=== PATIENT | male | born 1940 | race Two or more races ===

== ENCOUNTER → 2016-05-07 | Outpatient (CLI) | payer MEDICARE, OTHER ==
[2016-05-07 16:34] LABS: Urine Bilirubin Negative (Negative); Urine Blood Negative /uL (Negative); Urine Color Yellow (Yellow); Urine Glucose Normal (Normal); Urine Ketone Negative (Negative); Urine Nitrite Negative (Negative); Urine RBC <1 /hpf (0 - 3); Urine Urobilinogen Normal (Negative)
[2016-05-07 16:53] LABS: BUN/Creatinine Ratio 15.2; Calcium 9.3 mg/dL (8.5-10.1); Potassium 4.7 mmol/L (3.5-5.1)
== END | disposition home or self-care (01) ==
LOC: LAB 08:21
PROVIDERS: ATTEND Internal Medicine Cardiovascular Disease
DX: N18.3 Chronic kidney disease, stage 3 (moderate) (principal); E83.2 Disorders of zinc metabolism; E21.3 Hyperparathyroidism, unspecified; R80.9 Proteinuria, unspecified
CPT/HCPCS: 36415; 80048; 81001; 82570; 83970; 84100; 84156

== ENCOUNTER → 2016-09-17 | Outpatient (CLI) | payer MEDICARE, OTHER ==
[2016-09-17 12:39] LABS: Albumin 4.2 g/dL (3.4-5.0); BUN/Creatinine Ratio 17.6; Bilirubin, Total 0.4 mg/dL (0.2-1.0); Calcium 9.8 mg/dL (8.5-10.1); Magnesium 2.8 mg/dL (1.6-2.6); Potassium 5.4 mmol/L (3.5-5.1); Total Protein 7.6 g/dL (6.4-8.2); Uric Acid 6.4 mg/dL (3.5-7.2)
== END | disposition home or self-care (01) ==
LOC: LAB 07:58
PROVIDERS: ATTEND Internal Medicine Cardiovascular Disease
DX: N18.3 Chronic kidney disease, stage 3 (moderate) (principal); M10.9 Gout, unspecified; R80.9 Proteinuria, unspecified; E29.1 Testicular hypofunction
CPT/HCPCS: 36415; 80053; 82570; 83735; 83970; 84100; 84156; 84550

== ENCOUNTER → 2017-01-12 | Outpatient (CLI) | payer MEDICARE, OTHER ==
[2017-01-12 12:39] LABS: Basophils # (auto) 0.1 uL; Eosinophils # (auto) 0.5 uL; Eosinophils % (auto) 8.4 % (0.0-7.0); Hematocrit 41.2 % (41.0-53.0); Hemoglobin 13.3 g/dL (13.5-17.5); Lymphocytes # (auto) 0.8 uL; Lymphocytes % (auto) 12.4 % (10.0-50.0); Mean Corpuscular Hemoglobin 29.7 pg (28.0-32.0); Mean Corpuscular Hgb Conc. 32.4 g/dL (32.0-36.0); Mean Corpuscular Volume 91.7 fL (80.0-100.0); Monocytes # (auto) 0.5 uL; Monocytes % (auto) 7.7 % (0.0-12.0); Neutrophils # (auto) 4.6 uL; Neutrophils % (auto) 70.5 % (37.0-80.0); Nucleated Red Blood Cells % 0.4 %; Platelet Count (auto) 243 10^3/uL (140-450); White Blood Cell 6.5 10^3/uL (4.4-10.8)
[2017-01-12 13:11] LABS: Albumin 4.4 g/dL (3.4-5.0); Bilirubin, Total 0.3 mg/dL (0.2-1.0); Calcium 9.3 mg/dL (8.5-10.1); Magnesium 2.3 mg/dL (1.6-2.6); Potassium 5.3 mmol/L (3.5-5.1); Total Protein 7.6 g/dL (6.4-8.2)
== END | disposition home or self-care (01) ==
LOC: LAB 08:24
PROVIDERS: ATTEND Internal Medicine Cardiovascular Disease
DX: E78.00 Pure hypercholesterolemia, unspecified (principal); I12.9 Hypertensive chronic kidney disease with stage 1 through stage 4 chronic kidney disease, or unspecified chronic kidney disease; E11.22 Type 2 diabetes mellitus with diabetic chronic kidney disease; N18.3 Chronic kidney disease, stage 3 (moderate); D64.9 Anemia, unspecified; E03.9 Hypothyroidism, unspecified; E55.9 Vitamin D deficiency, unspecified; K74.1 Hepatic sclerosis; R53.81 Other malaise; R97.20 Elevated prostate specific antigen [PSA]; M10.9 Gout, unspecified
CPT/HCPCS: 36415; 80053; 80061; 82306; 82728; 83036; 83540; 83550; 83735; 83970; 84153; 84403; 84443; 85025

== ENCOUNTER → 2017-04-27 | Outpatient (CLI) | payer MEDICARE, OTHER ==
[2017-04-27 11:48] LABS: Urine Blood Negative /uL (Negative); Urine Specific Gravity 1.013 (1.001-1.035)
[2017-04-27 11:55] LABS: Basophils # (auto) 0.1 uL; Basophils % (auto) 1.9 % (0.0-2.0); Eosinophils # (auto) 0.3 uL; Eosinophils % (auto) 5.4 % (0.0-7.0); Hematocrit 35.4 % (41.0-53.0); Hemoglobin 11.4 g/dL (13.5-17.5); Lymphocytes # (auto) 0.8 uL; Lymphocytes % (auto) 14.4 % (10.0-50.0); Mean Corpuscular Hemoglobin 29.5 pg (28.0-32.0); Mean Corpuscular Hgb Conc. 32.3 g/dL (32.0-36.0); Mean Corpuscular Volume 91.3 fL (80.0-100.0); Monocytes # (auto) 0.4 uL; Monocytes % (auto) 7.4 % (0.0-12.0); Neutrophils % (auto) 70.9 % (37.0-80.0); Nucleated Red Blood Cells % 0.2 %; Platelet Count (auto) 311 10^3/uL (140-450); Red Blood Cells 3.88 10^6/uL (4.5-5.90); Red Cell Distribution Width 14.2 % (11.8-14.3); White Blood Cell 5.7 10^3/uL (4.4-10.8)
[2017-04-27 12:00] LABS: Free T4 (Free Thyroxine) 1.08 ng/dL (0.89-1.76); Prostate Specific Antigen 1.87 ng/mL (0.0-4.0)
[2017-04-27 12:18] LABS: Alanine Aminotransferase 22 U/L (16-61); Albumin 4.4 g/dL (3.4-5.0); Alkaline Phosphatase 87 U/L (45-117); Anion Gap 9 (5-15); Aspartate Aminotransferase 15 U/L (15-37); BUN/Creatinine Ratio 15.1; Bilirubin, Direct < 0.1 mg/dL (0-0.2); Bilirubin, Total 0.4 mg/dL (0.2-1.0); Blood Urea Nitrogen 48 mg/dL (7-18); Calcium 9.3 mg/dL (8.5-10.1); Carbon Dioxide 21 mmol/L (21-32); Chloride 111 mmol/L (98-107); Cholesterol 195 mg/dL (< 200); GFR African American 24 mL/min; GFR Non-African American 20 mL/min; Glucose 88 mg/dL (74-106); HDL Cholesterol 48 mg/dL (40-59); LDL Cholesterol 129 mg/dL (< 100); Potassium 4.5 mmol/L (3.5-5.1); Sodium 141 mmol/L (136-145); Total Protein 7.7 g/dL (6.4-8.2); Triglycerides 123 mg/dL (< 150)
== END | disposition home or self-care (01) ==
LOC: LAB 08:26
PROVIDERS: ATTEND Internal Medicine Cardiovascular Disease
DX: E78.00 Pure hypercholesterolemia, unspecified (principal); D64.9 Anemia, unspecified; I10 Essential (primary) hypertension; E03.9 Hypothyroidism, unspecified; E55.9 Vitamin D deficiency, unspecified; E11.9 Type 2 diabetes mellitus without complications; D51.9 Vitamin B12 deficiency anemia, unspecified; R53.81 Other malaise; R97.20 Elevated prostate specific antigen [PSA]; K74.1 Hepatic sclerosis; N39.0 Urinary tract infection, site not specified
CPT/HCPCS: 36415; 80048; 80061; 80076; 81003; 82306; 82607; 83036; 84153; 84403; 84439; 84443; 85025

== ENCOUNTER → 2017-07-20 | Outpatient (CLI) | payer MEDICARE, OTHER ==
[2017-07-20 12:30] LABS: BUN/Creatinine Ratio 17.6; Calcium 8.8 mg/dL (8.5-10.1); Potassium 4.9 mmol/L (3.5-5.1)
== END | disposition home or self-care (01) ==
LOC: LAB 10:10
PROVIDERS: ATTEND Internal Medicine
DX: E11.22 Type 2 diabetes mellitus with diabetic chronic kidney disease (principal); I12.9 Hypertensive chronic kidney disease with stage 1 through stage 4 chronic kidney disease, or unspecified chronic kidney disease; N18.3 Chronic kidney disease, stage 3 (moderate); E03.9 Hypothyroidism, unspecified
CPT/HCPCS: 36415; 80048

== ENCOUNTER → 2017-09-07 | Outpatient (CLI) | payer MEDICARE, BC ==
[~2017-09-07] MED LIST: ALLO300T2 PO; ASPI81CH43 PO; CHOL20007 PO; DOXA2TAB PO; HYDR50TA15 PO; LEVO100T8 PO; TAMS0.4C36 PO
[2017-09-07 08:00] VITALS: BP 148/64
[2017-09-07 08:40] VITALS: BP 140/67
[2017-09-07 12:38] LABS: Basophils # (auto) 0 uL; Basophils % (auto) 0.6 % (0.0-2.0); Eosinophils # (auto) 0.1 uL; Eosinophils % (auto) 1.7 % (0.0-7.0); Hematocrit 38.2 % (41.0-53.0); Hemoglobin 12.4 g/dL (13.5-17.5); Lymphocytes # (auto) 0.4 uL; Lymphocytes % (auto) 7.5 % (10.0-50.0); Mean Corpuscular Hemoglobin 28.6 pg (28.0-32.0); Mean Corpuscular Hgb Conc. 32.4 g/dL (32.0-36.0); Mean Corpuscular Volume 88.1 fL (80.0-100.0); Monocytes # (auto) 0.3 uL; Monocytes % (auto) 6.4 % (0.0-12.0); Neutrophils # (auto) 4.4 uL; Neutrophils % (auto) 83.8 % (37.0-80.0); Nucleated Red Blood Cells % 0.1 %; Platelet Count (auto) 201 10^3/uL (140-450); Red Blood Cells 4.33 10^6/uL (4.5-5.90); Red Cell Distribution Width 16.2 % (11.8-14.3); White Blood Cell 5.3 10^3/uL (4.4-10.8)
[2017-09-07 12:40] LABS: INR 0.94 (0.9-1.15); Partial Thromboplastin Time 26.9 sec (23.78-33.04); Prothrombin Time 10.1 sec (9.27-12.13)
[2017-09-07 12:46] LABS: BUN/Creatinine Ratio 16.7; Calcium 8.5 mg/dL (8.5-10.1); Potassium 4.6 mmol/L (3.5-5.1)
== END | disposition home or self-care (01) ==
LOC: Rad HDHVI 07:55
PROVIDERS: ATTEND Internal Medicine Cardiovascular Disease
DX: Z01.818 Encounter for other preprocedural examination (principal); D64.9 Anemia, unspecified; I12.9 Hypertensive chronic kidney disease with stage 1 through stage 4 chronic kidney disease, or unspecified chronic kidney disease; E11.22 Type 2 diabetes mellitus with diabetic chronic kidney disease; N18.3 Chronic kidney disease, stage 3 (moderate); E03.9 Hypothyroidism, unspecified; R79.1 Abnormal coagulation profile
CPT/HCPCS: 36415; 80048; 85025; 85610; 85730; 93005; G0463

== ENCOUNTER 2017-09-09 09:24 | Day surgery (SDC) | payer MEDICARE, OTHER ==
[~2017-09-09] VITALS: Ht 175.3 cm; Wt 119.3 kg
[2017-09-09] MEDS ORDERED: IOHEXOL 350 MG/ML 100ML IJ ONE (11:55)
[2017-09-09] MEDS ORDERED: LIDOCAINE 2%HCL (LOCAL ANESTH.) INJ 10ml MDV ONE (11:55)
[2017-09-09] MEDS ORDERED: SODIUM CHL 0.9% 0 ML ONE (13:03)
[2017-09-09] MEDS ORDERED: fentaNYL CITRATE 100 MCG/2 ML VL ONE (13:03)
[2017-09-09] MEDS ORDERED: MIDAZOLAM HCL 1MG/1ML-2 ML VIAL ONE (13:03)
[2017-09-09] MEDS ORDERED: IODIXANOL 320MG/ML 100ML BTL IV ONE (13:05)
[2017-09-09] MEDS ORDERED: ANGIOMAX 250 MG VIAL IV ONE (13:23)
[2017-09-09] MEDS ORDERED: NITROGLYCERIN 0.4MG/DOSE SPRAY 4.9GM ONE (13:36)
== END 2017-09-09 15:55 | disposition home or self-care (01) ==
LOC: CATH 09:24
PROVIDERS: ATTEND Internal Medicine Cardiovascular Disease
DX: I12.9 Hypertensive chronic kidney disease with stage 1 through stage 4 chronic kidney disease, or unspecified chronic kidney disease (principal); N18.9 Chronic kidney disease, unspecified; E66.9 Obesity, unspecified; Z68.38 Body mass index [BMI] 38.0-38.9, adult; Z86.73 Personal history of transient ischemic attack (TIA), and cerebral infarction without residual deficits; Z87.891 Personal history of nicotine dependence; Z79.82 Long term (current) use of aspirin; Z79.899 Other long term (current) drug therapy
CPT/HCPCS: 36252; C1760; C1894; J1644; J2001; J2250; J3010; Q9967; 99152; 99153; A6257

== ENCOUNTER → 2017-11-03 | Outpatient (CLI) | payer MEDICARE, BC ==
[2017-11-03 12:25] LABS: Basophils # (auto) 0.1 uL; Eosinophils # (auto) 0.3 uL; Hematocrit 41.2 % (41.0-53.0); Hemoglobin 13.5 g/dL (13.5-17.5); Lymphocytes # (auto) 0.8 uL; Mean Corpuscular Hemoglobin 29.7 pg (28.0-32.0); Mean Corpuscular Hgb Conc. 32.8 g/dL (32.0-36.0); Mean Corpuscular Volume 90.5 fL (80.0-100.0); Monocytes # (auto) 0.6 uL; Neutrophils # (auto) 4.8 uL; Platelet Count (auto) 282 10^3/uL (140-450); Red Blood Cells 4.55 10^6/uL (4.5-5.90); Red Cell Distribution Width 15.4 % (11.8-14.3); White Blood Cell 6.6 10^3/uL (4.4-10.8)
[2017-11-03 12:39] LABS: Urine Blood Negative /uL (Negative); Urine Specific Gravity 1.013 (1.001-1.035)
[2017-11-03 12:44] LABS: Free T4 (Free Thyroxine) 1.07 ng/dL (0.89-1.76)
[2017-11-03 12:54] LABS: Albumin 4.5 g/dL (3.4-5.0); Bilirubin, Total 0.4 mg/dL (0.2-1.0); Calcium 9.5 mg/dL (8.5-10.1); Total Protein 8.3 g/dL (6.4-8.2)
== END | disposition home or self-care (01) ==
LOC: LAB 08:13
PROVIDERS: ATTEND Internal Medicine Cardiovascular Disease
DX: C61 Malignant neoplasm of prostate (principal); E11.9 Type 2 diabetes mellitus without complications; N39.0 Urinary tract infection, site not specified; I10 Essential (primary) hypertension; E03.9 Hypothyroidism, unspecified; E55.9 Vitamin D deficiency, unspecified; E29.1 Testicular hypofunction; D51.9 Vitamin B12 deficiency anemia, unspecified; K74.1 Hepatic sclerosis
CPT/HCPCS: 36415; 80053; 80061; 81003; 82306; 82607; 83036; 84403; 84439; 84443; 85025

== ENCOUNTER → 2018-02-14 | Outpatient (CLI) | payer MEDICARE, BC | END | disposition home or self-care (01) | LOC: Rad HDHVI 07:58 | PROVIDERS: ATTEND Internal Medicine Cardiovascular Disease | DX: I08.8 Other rheumatic multiple valve diseases (principal); I10 Essential (primary) hypertension | CPT/HCPCS: 93306 ==

== ENCOUNTER → 2018-02-17 | Outpatient (CLI) | payer MEDICARE, BC ==
[~2018-02-17] VITALS: Ht 177.8 cm; Wt 74.8 kg
== END | disposition home or self-care (01) ==
LOC: Rad HDHVI 08:17
PROVIDERS: ATTEND Internal Medicine Cardiovascular Disease
DX: I12.9 Hypertensive chronic kidney disease with stage 1 through stage 4 chronic kidney disease, or unspecified chronic kidney disease (principal); N18.3 Chronic kidney disease, stage 3 (moderate); N17.9 Acute kidney failure, unspecified
CPT/HCPCS: 78452; 93017; 96374; A9500

== ENCOUNTER → 2018-03-22 | Outpatient (CLI) | payer MEDICARE, BC ==
[~2018-03-22] MED LIST changes: +CLOP75TA28 PO; +LEVO150T10 PO; +NIFE90TA30 PO
[2018-03-22 10:05] VITALS: BP 180/78
--- NOTE | 2018-03-22 10:47 | NUR ---
PRE-OP FOR LEFT AND RIGHT HEART CATH FOR 03/24/18 Pre-Op Discharge Summary: See e-MAR for any medications given for this visit. Pre-op orders received and carried out per MD of EKG, LABS and chest xrays. Patient given a copy of EKG with instructions to go to [facility] out patient for further follow up care.
[2018-03-22 11:18] VITALS: BP 188/80
[2018-03-22 12:04] LABS: INR 0.92 (0.9-1.15); Partial Thromboplastin Time 19.5 sec (23.78-33.04); Prothrombin Time 9.9 sec (9.27-12.13)
[2018-03-22 12:06] LABS: BUN/Creatinine Ratio 14.7; Calcium 8.9 mg/dL (8.5-10.1); Potassium 4.5 mmol/L (3.5-5.1)
[2018-03-22 12:24] LABS: Basophils # (auto) 0.1 uL; Eosinophils # (auto) 0.5 uL; Eosinophils % (auto) 4.7 % (0.0-7.0); Hematocrit 34.7 % (41.0-53.0); Hemoglobin 11.3 g/dL (13.5-17.5); Lymphocytes # (auto) 1.1 uL; Lymphocytes % (auto) 11.1 % (10.0-50.0); Mean Corpuscular Hemoglobin 29.4 pg (28.0-32.0); Mean Corpuscular Hgb Conc. 32.6 g/dL (32.0-36.0); Mean Corpuscular Volume 90.2 fL (80.0-100.0); Monocytes # (auto) 0.7 uL; Monocytes % (auto) 7.2 % (0.0-12.0); Neutrophils # (auto) 7.5 uL; Nucleated Red Blood Cells % 0.2 %; Platelet Count (auto) 307 10^3/uL (140-450); Red Blood Cells 3.84 10^6/uL (4.5-5.90); Red Cell Distribution Width 15.2 % (11.8-14.3); White Blood Cell 9.9 10^3/uL (4.4-10.8)
== END | disposition home or self-care (01) ==
LOC: Rad HDHVI 09:45
PROVIDERS: ATTEND Internal Medicine Cardiovascular Disease
DX: Z01.818 Encounter for other preprocedural examination (principal); I10 Essential (primary) hypertension; D64.9 Anemia, unspecified; R79.1 Abnormal coagulation profile
CPT/HCPCS: 36415; 80048; 85025; 85610; 85730; 93005; G0463

== ENCOUNTER 2018-03-24 09:21 | Inpatient (IN) | payer MEDICARE, OTHER | END 2018-03-25 15:00 | disposition home or self-care (01) | LOC: CATH 09:21 → TELE-CENTR 14:55 | PROC: B2111ZZ Fluoroscopy of Multiple Coronary Arteries using Low Osmolar Contrast (ICD-10-PCS; principal; ~2018-03-24) | PROC: 027034Z Dilation of Coronary Artery, One Artery with Drug-eluting Intraluminal Device, Percutaneous Approach (ICD-10-PCS; ~2018-03-24) | PROC: B2161ZZ Fluoroscopy of Right and Left Heart using Low Osmolar Contrast (ICD-10-PCS; ~2018-03-24) | PROC: 4A023N6 Measurement of Cardiac Sampling and Pressure, Right Heart, Percutaneous Approach (ICD-10-PCS; ~2018-03-24) | PROC: B2101ZZ Fluoroscopy of Single Coronary Artery using Low Osmolar Contrast (ICD-10-PCS; ~2018-03-24) | PROC: B2161ZZ Fluoroscopy of Right and Left Heart using Low Osmolar Contrast (ICD-10-PCS; ~2018-03-24) | DX: R07.9 Chest pain, unspecified (principal); R94.39 Abnormal result of other cardiovascular function study; R06.02 Shortness of breath; I25.10 Atherosclerotic heart disease of native coronary artery without angina pectoris; I10 Essential (primary) hypertension; E78.5 Hyperlipidemia, unspecified ==

== ENCOUNTER → 2018-11-07 | Outpatient (CLI) | payer MEDICARE, BC ==
[~2018-11-07] VITALS: Ht 177.8 cm; Wt 73.5 kg
[~2018-11-07] MED LIST changes: -DOXA2TAB PO; -HYDR50TA15 PO; -LEVO100T8 PO
[2018-11-07 11:50] LABS: Urine Blood TRACE /uL (Negative); Urine Specific Gravity 1.012 (1.001-1.035)
[2018-11-07 11:55] LABS: Basophils # (auto) 0.1 uL; Basophils % (auto) 1.3 % (0.0-2.0); Eosinophils # (auto) 0.4 uL; Eosinophils % (auto) 6.2 % (0.0-7.0); Hematocrit 31.4 % (41.0-53.0); Hemoglobin 10.4 g/dL (13.5-17.5); Lymphocytes # (auto) 0.5 uL; Mean Corpuscular Hemoglobin 28.9 pg (28.0-32.0); Mean Corpuscular Hgb Conc. 33.2 g/dL (32.0-36.0); Mean Corpuscular Volume 86.9 fL (80.0-100.0); Monocytes # (auto) 0.5 uL; Monocytes % (auto) 9.7 % (0.0-12.0); Neutrophils # (auto) 4.2 uL; Neutrophils % (auto) 74.8 % (37.0-80.0); Nucleated Red Blood Cells % 0.1 %; Platelet Count (auto) 276 10^3/uL (140-450); Red Blood Cells 3.61 10^6/uL (4.5-5.90); White Blood Cell 5.7 10^3/uL (4.4-10.8)
[2018-11-07 12:03] LABS: Albumin 4.2 g/dL (3.4-5.0); BUN/Creatinine Ratio 13.1; Calcium 8.7 mg/dL (8.5-10.1); Potassium 4.8 mmol/L (3.5-5.1)
[2018-11-07 12:06] LABS: Bilirubin, Total 0.3 mg/dL (0.2-1.0); Total Protein 7.1 g/dL (6.4-8.2)
[2018-11-07 12:14] LABS: Free T4 (Free Thyroxine) 1.48 ng/dL (0.89-1.76); Prostate Specific Antigen 1.26 ng/mL (0.0-4.0)
== END | disposition home or self-care (01) ==
LOC: Rad HDHVI 07:53
PROVIDERS: ATTEND Internal Medicine Cardiovascular Disease
DX: E03.9 Hypothyroidism, unspecified (principal); K90.9 Intestinal malabsorption, unspecified; C61 Malignant neoplasm of prostate; E29.1 Testicular hypofunction; N39.0 Urinary tract infection, site not specified; I12.9 Hypertensive chronic kidney disease with stage 1 through stage 4 chronic kidney disease, or unspecified chronic kidney disease; N18.3 Chronic kidney disease, stage 3 (moderate); Z79.899 Other long term (current) drug therapy
CPT/HCPCS: 36415; 78452; 80053; 80061; 81003; 82306; 82607; 83036; 84153; 84403; 84439; 84443; 85025; 93017; 96374; A9500

== ENCOUNTER → 2018-12-23 | Outpatient (CLI) | payer MEDICARE, BC ==
[2018-12-23 12:26] LABS: Calcium 8.5 mg/dL (8.5-10.1); Potassium 4.9 mmol/L (3.5-5.1)
== END | disposition home or self-care (01) ==
LOC: LAB 10:05
PROVIDERS: ATTEND Internal Medicine Cardiovascular Disease
DX: I12.9 Hypertensive chronic kidney disease with stage 1 through stage 4 chronic kidney disease, or unspecified chronic kidney disease (principal); N18.6 End stage renal disease; I25.10 Atherosclerotic heart disease of native coronary artery without angina pectoris; E78.5 Hyperlipidemia, unspecified
CPT/HCPCS: 36415; 80048

== ENCOUNTER 2018-12-26 14:13 | Inpatient (IN) | payer MEDICARE, BC ==
[~2018-12-26] VITALS: Ht 175.3 cm; Wt 68.9 kg
--- NOTE | 2018-12-26 15:15 | NUR ---
Telemetry admit from DR. RODRIGUEZ OFFICE SHELL WASHINGTON admitted to Telemetry unit after SBAR received. Patient oriented to Herminia Nath, primary RN, unit, room, bed, and unit policies regarding patient care and visiting hours. Patient now on continuous telemetry monitoring, tele box # [id number] and telemetry reading on arrival to unit is . Patient placed on bedside oxygen, weighed by bedscale and encouraged to call if they need something. All questions and concerns addressed, patient verbalized understanding. Note:
[2018-12-26 15:58] VITALS: BP 153/70
[2018-12-26 17:00] VITALS: BP 153/70
--- NOTE | 2018-12-26 17:11 | NUR ---
DOCTOR LUIS EDUARDO CALLED AND ASKED TO HOLD RADIOLOGIST CONSULT UNTIL HE COMES TO SEE THE PATIENT IN THE AM
[2018-12-26] MEDS: CALCIUM ACETATE 667 MG CAP PO SCH (17:51)
[2018-12-26 18:08] LABS: Basophils # (auto) 0.1 uL; Basophils % (auto) 0.9 % (0.0-2.0); Eosinophils # (auto) 0.3 uL; Eosinophils % (auto) 5.5 % (0.0-7.0); Hematocrit 31.7 % (41.0-53.0); Hemoglobin 10.4 g/dL (13.5-17.5); Lymphocytes # (auto) 0.6 uL; Lymphocytes % (auto) 9.2 % (10.0-50.0); Mean Corpuscular Hemoglobin 28.9 pg (28.0-32.0); Mean Corpuscular Hgb Conc. 32.8 g/dL (32.0-36.0); Monocytes # (auto) 0.6 uL; Monocytes % (auto) 9.6 % (0.0-12.0); Neutrophils # (auto) 4.5 uL; Neutrophils % (auto) 74.8 % (37.0-80.0); Platelet Count (auto) 266 10^3/uL (140-450); Red Cell Distribution Width 14.2 % (11.8-14.3)
[2018-12-26 18:15] LABS: INR 0.96 (0.9-1.15); Partial Thromboplastin Time 26.7 sec (23.64-32.05)
[2018-12-26 18:17] LABS: Albumin 3.9 g/dL (3.4-5.0); Calcium 8.3 mg/dL (8.5-10.1); Potassium 5.3 mmol/L (3.5-5.1)
[2018-12-26 18:20] LABS: BUN/Creatinine Ratio 12.6; Bilirubin, Total 0.3 mg/dL (0.2-1.0); Total Protein 6.9 g/dL (6.4-8.2)
--- NOTE | 2018-12-26 19:15 | NUR ---
Opening Shift Note Assumed care of patient, awake and alert. No S/S of distress/SOB or pain. Instructed on POC and to call for assist PRN, will continue to monitor for changes Q1hr and PRN.
[2018-12-26] MEDS: TEMAZEPAM 15 MG CAP PO PRN (21:32)
[2018-12-26] MEDS: SODIUM BICARBONATE 650 MG TAB PO SCH (21:32)
[2018-12-26] MEDS: cloNIDine HCL 0.1 MG TAB PO SCH (21:33)
[2018-12-26] MEDS ORDERED: SODIUM CITR/CITRIC ACID ORAL SOLN 30 ML PO SCH (22:00)
[2018-12-26 23:24] VITALS: BP 168/70
[2018-12-27 05:23] VITALS: BP 101/63
[2018-12-27] MEDS: SODIUM BICARBONATE 650 MG TAB PO SCH ×3 (06:01→21:56)
[2018-12-27] MEDS: LEVOTHYROXINE SODIUM 50 MCG TAB PO SCH (06:02)
[2018-12-27] MEDS: cloNIDine HCL 0.1 MG TAB PO SCH ×3 (06:02→21:56)
[2018-12-27 07:28] LABS: Basophils # (auto) 0 uL; Basophils % (auto) 0.9 % (0.0-2.0); Eosinophils # (auto) 0.3 uL; Eosinophils % (auto) 6.3 % (0.0-7.0); Hematocrit 26.5 % (41.0-53.0); Lymphocytes # (auto) 0.5 uL; Lymphocytes % (auto) 11.1 % (10.0-50.0); Mean Corpuscular Hemoglobin 29.5 pg (28.0-32.0); Monocytes # (auto) 0.5 uL; Monocytes % (auto) 10.9 % (0.0-12.0); Neutrophils # (auto) 3.1 uL; Neutrophils % (auto) 70.8 % (37.0-80.0); Platelet Count (auto) 201 10^3/uL (140-450); Red Blood Cells 3.05 10^6/uL (4.5-5.90); Red Cell Distribution Width 14.1 % (11.8-14.3); White Blood Cell 4.4 10^3/uL (4.4-10.8)
[2018-12-27 07:42] LABS: Calcium 8.1 mg/dL (8.5-10.1); Magnesium 2.7 mg/dL (1.6-2.6); Potassium 5.2 mmol/L (3.5-5.1)
[2018-12-27 07:44] LABS: BUN/Creatinine Ratio 13.2; Phosphorus 5.6 mg/dL (2.5-4.90)
--- NOTE | 2018-12-27 07:45 | NUR ---
CRITICAL VALUE LAB CALLED RE: BUN LEVEL 80. AWARE. WILL CONTINUE TO MONITOR
[2018-12-27 07:47] LABS: % Iron Saturation 26.8 % (20-55)
[2018-12-27 08:00] VITALS: BP 119/62
[2018-12-27] MEDS: CALCIUM ACETATE 667 MG CAP PO SCH ×3 (08:05→18:04)
--- NOTE | 2018-12-27 08:15 | NUR ---
Opening Shift Note Assumed care of patient, awake and alert. No S/S of distress/SOB or pain. Instructed on POC and to call for assist PRN, bed in locked and lowest position and call light within reach. Will continue to monitor for changes Q1hr and PRN.
--- NOTE | 2018-12-27 09:20 | NUR ---
MD ROUNDS DR HOFF AT BEDSIDE DISCUSSING POC WITH PATIENT AND FAMILY. ALL QUESTIONS/CONCERNS ANSWERED. WILL CONTINUE TO MONITOR
[2018-12-27] MEDS: B-COMPLEX W/ C & FOLIC ACID(NEPHROVITE TAB) PO SCH (10:12)
[2018-12-27] MEDS: NIFEdipine ER 30 MG TAB PO SCH (10:13)
[2018-12-27 12:00] VITALS: BP 131/64
[2018-12-27] MEDS: IRON SUCROSE COMPLEX 200 MG in SODIUM CHL 0.9% 100 ML IV SCH (15:36)
[2018-12-27 17:00] VITALS: BP 121/60
[2018-12-27 22:00] VITALS: BP 115/65
[2018-12-28 04:56] VITALS: BP 122/62
[2018-12-28] MEDS: cloNIDine HCL 0.1 MG TAB PO SCH ×3 (06:00→21:59)
[2018-12-28] MEDS: SODIUM BICARBONATE 650 MG TAB PO SCH ×3 (06:20→21:58)
[2018-12-28] MEDS: LEVOTHYROXINE SODIUM 50 MCG TAB PO SCH (07:27)
[2018-12-28 07:34] LABS: Basophils # (auto) 0 uL; Basophils % (auto) 0.8 % (0.0-2.0); Eosinophils # (auto) 0.3 uL; Eosinophils % (auto) 5.3 % (0.0-7.0); Hematocrit 29.4 % (41.0-53.0); Hemoglobin 9.9 g/dL (13.5-17.5); Lymphocytes # (auto) 0.5 uL; Lymphocytes % (auto) 8.7 % (10.0-50.0); Mean Corpuscular Hemoglobin 29.3 pg (28.0-32.0); Mean Corpuscular Hgb Conc. 33.8 g/dL (32.0-36.0); Mean Corpuscular Volume 86.7 fL (80.0-100.0); Monocytes # (auto) 0.5 uL; Monocytes % (auto) 9.7 % (0.0-12.0); Neutrophils # (auto) 4.1 uL; Neutrophils % (auto) 75.5 % (37.0-80.0); Nucleated Red Blood Cells % 0.1 %; Platelet Count (auto) 225 10^3/uL (140-450); Red Blood Cells 3.39 10^6/uL (4.5-5.90); Red Cell Distribution Width 13.8 % (11.8-14.3); White Blood Cell 5.4 10^3/uL (4.4-10.8)
[2018-12-28 07:44] LABS: BUN/Creatinine Ratio 13.2; Potassium 5.3 mmol/L (3.5-5.1)
--- NOTE | 2018-12-28 07:51 | NUR ---
CRITICAL BUN BUN INCREASED FROM 80 TO 83, DR. RODRIGUEZ NOTIFIED, WAITING FOR CALL BACK.
[2018-12-28] MEDS ORDERED: SODIUM CHL 0.9% 1000 ML BAG XX ONE (08:00)
[2018-12-28] MEDS: CALCIUM ACETATE 667 MG CAP PO SCH ×3 (08:00→18:26)
--- NOTE | 2018-12-28 08:46 | NUR ---
DR. HOFF AT [facility], MADE AWARE PT IS SCHEDULED FOR DIALYSIS CATHETER PLACEMENT ON WEDNESDAY. RECEIVED ORDER TO GIVE INSULIN 10 UNITS IV,D50 1 AMP AND ALBUTEROL NEB 1GRAM. Addendum: 12/28/18 at 09 by Loli Max RN ALBUTEROL NEB 10MG
[2018-12-28 09:00] VITALS: BP 134/69
[2018-12-28] MEDS ORDERED: DEXTROSE (50%) 50ML SYRG IV ONE (09:00)
[2018-12-28] MEDS ORDERED: ALBUTEROL SULF 2.5 MG/0.5ML(0.5%) NEB SOLN NEB ONE (09:00)
[2018-12-28] MEDS ORDERED: InsuLIN REG 1unit/0.01ml Soln (100units/ml) IV ONE (09:00)
[2018-12-28] MEDS: NIFEdipine ER 30 MG TAB PO SCH (10:00)
[2018-12-28] MEDS: B-COMPLEX W/ C & FOLIC ACID(NEPHROVITE TAB) PO SCH (10:24)
[2018-12-28] MEDS: IRON SUCROSE COMPLEX 200 MG in SODIUM CHL 0.9% 100 ML IV SCH (12:05)
--- NOTE | 2018-12-28 12:42 | NUR ---
Dr. Steven ordered to resume diet, Dr. Dwyer made aware pt is not going for dialysis catheter placement until Wednesday, he ordered renal diet.
[2018-12-28 12:56] VITALS: BP 134/60
[2018-12-28] MEDS ORDERED: ERGOCALCIFEROL 50,000 UNIT(1.25MG) CAP PO SCH (14:00)
--- NOTE | 2018-12-28 15:00 | NUR ---
PT INSTRUCTED TO USE URINAL TO MEASURE OUTPUT. MADE AWARE INTAKE AND OUTPUT IS MONITORED.
--- NOTE | 2018-12-28 15:50 | NUR ---
CALLED PHARMACY TO FOLLOW UP VITAMIN D DOSE.
[2018-12-28 20:18] VITALS: BP 151/77
[2018-12-28] MEDS ORDERED: EPOETIN ALFA 10,000 UNIT/1 ML VIAL SC ONE (21:00)
[2018-12-28 22:08] VITALS: BP 157/73
[2018-12-29 04:04] VITALS: BP 130/70
[2018-12-29 05:50] LABS: Basophils # (auto) 0.1 uL; Eosinophils # (auto) 0.2 uL; Eosinophils % (auto) 3.4 % (0.0-7.0); Hematocrit 27.9 % (41.0-53.0); Hemoglobin 9.4 g/dL (13.5-17.5); Lymphocytes # (auto) 0.5 uL; Lymphocytes % (auto) 9.6 % (10.0-50.0); Mean Corpuscular Hemoglobin 29.5 pg (28.0-32.0); Mean Corpuscular Hgb Conc. 33.8 g/dL (32.0-36.0); Mean Corpuscular Volume 87.2 fL (80.0-100.0); Monocytes # (auto) 0.6 uL; Monocytes % (auto) 10.6 % (0.0-12.0); Neutrophils % (auto) 75.4 % (37.0-80.0); Platelet Count (auto) 212 10^3/uL (140-450); Red Cell Distribution Width 14.1 % (11.8-14.3); White Blood Cell 5.3 10^3/uL (4.4-10.8)
[2018-12-29 06:08] LABS: Potassium 5.2 mmol/L (3.5-5.1)
[2018-12-29 06:12] LABS: BUN/Creatinine Ratio 13.9
--- NOTE | 2018-12-29 06:28 | NUR ---
CRITICAL LAB VALUE LAB CALLED RE: BUN OF 89.
[2018-12-29] MEDS: cloNIDine HCL 0.1 MG TAB PO SCH ×3 (06:31→21:43)
[2018-12-29] MEDS: SODIUM BICARBONATE 650 MG TAB PO SCH ×3 (06:31→21:42)
[2018-12-29] MEDS: LEVOTHYROXINE SODIUM 50 MCG TAB PO SCH (06:31)
--- NOTE | 2018-12-29 07:30 | NUR ---
Opening Shift Note RECEIVED REPORT FROM NOC RN. Assumed care of patient, awake and alert. No S/S of distress/SOB or pain. BED IN LOWEST, LOCKED POSITION WITH SIDERAILS UP x2 AND CALL LIGHT WITHIN REACH. Instructed on POC and to call for assist PRN, will continue to monitor for changes Q1hr and PRN.
[2018-12-29] MEDS: CALCIUM ACETATE 667 MG CAP PO SCH ×3 (08:24→17:23)
[2018-12-29 08:30] VITALS: BP 127/67
[2018-12-29] MEDS: NIFEdipine ER 30 MG TAB PO SCH (10:14)
[2018-12-29] MEDS: B-COMPLEX W/ C & FOLIC ACID(NEPHROVITE TAB) PO SCH (10:14)
[2018-12-29 11:59] LABS: Hepatitis A Ab IgM Negative
[2018-12-29 12:00] VITALS: BP 115/64
[2018-12-29 12:27] LABS: Hepatitis B Core IgM Negative
[2018-12-29 12:42] LABS: Hepatitis B Surface Antigen Negative (Negative)
[2018-12-29] MEDS: IRON SUCROSE COMPLEX 200 MG in SODIUM CHL 0.9% 100 ML IV SCH (12:46)
[2018-12-29] MEDS: SODIUM ZIRCONIUM CYCL 10 GM PAK PO SCH (12:47)
[2018-12-29 13:00] LABS: Hepatitis C Antibody Negative (Negative)
--- NOTE | 2018-12-29 14:15 | NUR ---
IV removal IV DC'd with clean sterile technique, catheter fully intact. Pressure dressing applied to site. Patient tolerated well.
--- NOTE | 2018-12-29 14:15 | NUR ---
IV insertion IV access obtained, via clean sterile technique by inserting 20 gauge catheter at RIGHT AC after 1 attempt. IV secured properly. No trauma to site. Patient tolerated well.
--- NOTE | 2018-12-29 14:20 | NUR ---
PATIENT TAKEN TO ENGINE ASSEMBLY SUPERVISOR FOR PROCEDURE.
[2018-12-29] MEDS ORDERED: fentaNYL CITRATE 100 MCG/2 ML VL ONE (15:12)
[2018-12-29] MEDS ORDERED: MIDAZOLAM HCL 1MG/1ML-2 ML VIAL ONE (15:12)
[2018-12-29] MEDS ORDERED: LIDOCAINE 2%HCL (LOCAL ANESTH.) INJ 20ML MDV ONE (15:21)
[2018-12-29] MEDS ORDERED: HEPARIN SODIUM (PORCINE) 5000 UNITS/ML 1ML VIAL ONE (16:05)
--- NOTE | 2018-12-29 16:50 | NUR ---
PATIENT BACK IN ROOM AFTER PROCEDURE.
[2018-12-29 16:53] VITALS: BP 140/75
--- NOTE | 2018-12-29 19:30 | NUR ---
Opening Shift Note Assumed care of patient, awake and alert. No S/S of distress/SOB or pain. Instructed on POC and to call for assist if needed. Call light placed in reach of patient and explained. Patient is currently laying in bed with the rails up x2, bed is locked in the lowest position. Will continue to monitor.
[2018-12-29] MEDS: TEMAZEPAM 15 MG CAP PO PRN (21:48)
[2018-12-29 22:00] VITALS: BP 119/66
[2018-12-30 05:00] VITALS: BP 136/66
[2018-12-30] MEDS: SODIUM BICARBONATE 650 MG TAB PO SCH ×2 (05:31→14:29)
[2018-12-30] MEDS: cloNIDine HCL 0.1 MG TAB PO SCH ×2 (05:32→14:00)
[2018-12-30] MEDS: LEVOTHYROXINE SODIUM 50 MCG TAB PO SCH (05:33)
[2018-12-30 06:26] LABS: Basophils # (auto) 0 uL; Basophils % (auto) 0.9 % (0.0-2.0); Eosinophils # (auto) 0.2 uL; Eosinophils % (auto) 4.3 % (0.0-7.0); Hematocrit 28.8 % (41.0-53.0); Hemoglobin 9.8 g/dL (13.5-17.5); Lymphocytes # (auto) 0.5 uL; Lymphocytes % (auto) 9.9 % (10.0-50.0); Mean Corpuscular Hemoglobin 29.5 pg (28.0-32.0); Mean Corpuscular Hgb Conc. 34.1 g/dL (32.0-36.0); Mean Corpuscular Volume 86.5 fL (80.0-100.0); Monocytes # (auto) 0.6 uL; Monocytes % (auto) 10.3 % (0.0-12.0); Neutrophils % (auto) 74.6 % (37.0-80.0); Nucleated Red Blood Cells % 0.1 %; Platelet Count (auto) 211 10^3/uL (140-450); Red Blood Cells 3.33 10^6/uL (4.5-5.90); White Blood Cell 5.4 10^3/uL (4.4-10.8)
[2018-12-30 06:46] LABS: Potassium 5.1 mmol/L (3.5-5.1)
[2018-12-30 06:51] LABS: BUN/Creatinine Ratio 14.5; Calcium 8.2 mg/dL (8.5-10.1)
[2018-12-30] MEDS: CALCIUM ACETATE 667 MG CAP PO SCH ×3 (08:16→17:55)
[2018-12-30 09:00] VITALS: BP 123/59
[2018-12-30] MEDS ORDERED: SODIUM CHL 0.9% 1000 ML BAG XX ONE (09:15)
[2018-12-30] MEDS: B-COMPLEX W/ C & FOLIC ACID(NEPHROVITE TAB) PO SCH (10:00)
[2018-12-30] MEDS: SODIUM ZIRCONIUM CYCL 10 GM PAK PO SCH (10:00)
[2018-12-30] MEDS: NIFEdipine ER 30 MG TAB PO SCH (10:01)
--- NOTE | 2018-12-30 11:30 | NUR ---
Nutrition Assessment Notes please see attached link for complete assessment Est. Needs based on BW (68 kg): 8988-0152 kcal (30-333 kcal/kgBW), 81-95 gms pro (1.2-1.4 gms/kgBW r/t HD). Will continue to monitor pertinent labs and reassess nutrient need prn Addendum: 12/30/18 at [address] Amended: Links added.
[2018-12-30] MEDS: IRON SUCROSE COMPLEX 200 MG in SODIUM CHL 0.9% 100 ML IV SCH (12:26)
[2018-12-30 13:00] VITALS: BP 140/59
--- NOTE | 2018-12-30 16:20 | NUR ---
assessment Patient is a 78 year old male who is alert and oriented. Patients cognitive abilities are intact. Prior to admission patient lived home with family and functioned independently. Patient informed me he is able to care for his own ADLs. Per patient he will return home to his prior living arrangements post discharge and family will transport him home. Patient is a new dialysis patient. Patient will need home health for med management and safety on discharge. I informed patient he has a right to speak to a social worker school regarding all care. I informed patient he has a right to participate in any and all discharge planning. Patient has a POA and advanced directive. Patient verbalized understanding and agreed to discharge plan. Addendum: 12/30/18 at 1628 by Dorene HENSON Amended: Links added.
[2018-12-30 17:00] VITALS: BP 138/72
--- NOTE | 2018-12-30 17:19 | NUR ---
D/C Planning Per consult for chair time and home health. Patient Johnie was at bedside when Information and choice letter was given to patient. Pt and did not have a preference of provider. Informed Pt and Dr. Steven requested [facility] as home health on the order and order will be sent to agency since they had no choice of preference. Pt and verbalize understanding d/c plan. Contact [facility] Ph:) Fax:( [phone]) faxed medical records. Per Katie from [facility] order has been received and service to start within 48hrs upon d/c day. Information was given to patient and at bedside. Informed NORRIS Nina. Addendum: 12/30/18 at 1725 by LISA SANDOVAL Amended: Links added. Addendum: 01/02/19 at 0823 by LISA HENSON Contact [facility] Ph:) Fax:) faxed medical records. Per Argenis lane [facility] dialysis chair time will be Wednesday01/02/19 at 14:[address] Per Argenis due to the holiday patient chair time will be different for the first week and the day of dialysis they will give give the schedule. Information was given to Patient and at bedside.
--- NOTE | 2018-12-30 17:50 | NUR ---
DIALYSIS COMPLETE DIALYSIS NURSE REPORTS 2 L TAKEN OFF.
[2018-12-30 18:01] VITALS: BP 138/72
--- NOTE | 2018-12-30 19:34 | NUR ---
CALLED CLERICAL AND ADMINISTRATIVE WORKERS OFFICE TO ADVISE OF RETURN OF TELE BOX #56. TOLD CLERICAL AND ADMINISTRATIVE WORKERS THERE WAS NO MORE BUBBLE WRAP. CLERICAL AND ADMINISTRATIVE WORKERS ADVISED TO KEEP TELE BOX AT NURSES STATION AND HAVE SOMEONE BRING IT DOWN.
[2018-12-30] MEDS ORDERED: EPOETIN ALFA 10,000 UNIT/1 ML VIAL SC ONE (21:00)
== END 2018-12-30 19:08 | disposition home or self-care (01) | DRG 673 ==
LOC: TELE-WESTW 15:00
PROVIDERS: ADMIT Internal Medicine Cardiovascular Disease; ATTEND Internal Medicine Cardiovascular Disease
PROC: 0JH63XZ Insertion of Tunneled Vascular Access Device into Chest Subcutaneous Tissue and Fascia, Percutaneous Approach (ICD-10-PCS; principal; 2018-12-29)
PROC: 02HV33Z Insertion of Infusion Device into Superior Vena Cava, Percutaneous Approach (ICD-10-PCS; 2018-12-29)
PROC: B5181ZA Fluoroscopy of Superior Vena Cava using Low Osmolar Contrast, Guidance (ICD-10-PCS; 2018-12-29)
PROC: B548ZZA Ultrasonography of Superior Vena Cava, Guidance (ICD-10-PCS; 2018-12-29)
PROC: 5A1D70Z Performance of Urinary Filtration, Intermittent, Less than 6 Hours Per Day (ICD-10-PCS; 2018-12-30)
DX: I12.0 Hypertensive chronic kidney disease with stage 5 chronic kidney disease or end stage renal disease (principal); N18.6 End stage renal disease; E87.2 Acidosis; D63.1 Anemia in chronic kidney disease; E87.5 Hyperkalemia; E83.39 Other disorders of phosphorus metabolism; I25.10 Atherosclerotic heart disease of native coronary artery without angina pectoris; E03.9 Hypothyroidism, unspecified; N40.0 Benign prostatic hyperplasia without lower urinary tract symptoms; E78.5 Hyperlipidemia, unspecified; Z99.2 Dependence on renal dialysis; Z86.73 Personal history of transient ischemic attack (TIA), and cerebral infarction without residual deficits; Z79.82 Long term (current) use of aspirin; Z95.5 Presence of coronary angioplasty implant and graft; Z79.899 Other long term (current) drug therapy
CPT/HCPCS: 36415; 71045; 76000; 76775; 76942; 80048; 80053; 80074; 82728; 82962; 83540; 83550; 83735; 84100; 85025; 85610; 85730; 90935; 93005; 94640; G0378; J0885; J1642; J1756; J1815; J2250

== ENCOUNTER → 2019-10-11 | Outpatient (CLI) | payer MEDICARE, BC ==
[~2019-10-11] MED LIST changes: -ALLO300T2 PO; -NIFE90TA30 PO; +NIFE90TA49 PO
[2019-10-11 12:22] LABS: Basophils # (auto) 0.1 10 ^3/uL (0-0.2); Basophils % (auto) 1.2 % (0.0-2.0); Eosinophils # (auto) 0.3 10 ^3/uL (0-0.8); Eosinophils % (auto) 5.7 % (0.0-7.0); Hematocrit 35.7 % (41.0-53.0); Hemoglobin 12.2 g/dL (13.5-17.5); Lymphocytes # (auto) 0.6 10 ^3/uL (0.4-5.4); Lymphocytes % (auto) 9.5 % (10.0-50.0); Mean Corpuscular Hemoglobin 31.3 pg (28.0-32.0); Mean Corpuscular Hgb Conc. 34.1 g/dL (32.0-36.0); Mean Corpuscular Volume 91.7 fL (80.0-100.0); Monocytes # (auto) 0.6 10 ^3/uL (0-1.3); Monocytes % (auto) 9.1 % (0.0-12.0); Neutrophils # (auto) 4.5 10 ^3/uL (1.6-8.6); Neutrophils % (auto) 74.5 % (37.0-80.0); Nucleated Red Blood Cells % 0.1 %; Platelet Count (auto) 281 10^3/uL (140-450); Red Blood Cells 3.89 10^6/uL (4.5-5.90); Red Cell Distribution Width 14.4 % (11.8-14.3); White Blood Cell 6.1 10^3/uL (4.4-10.8)
[2019-10-11 12:24] LABS: Urine Blood Negative /uL (Negative); Urine Specific Gravity 1.015 (1.001-1.035)
[2019-10-11 12:42] LABS: Albumin 4.2 g/dL (3.4-5.0); BUN/Creatinine Ratio 7.5; Bilirubin, Total 0.4 mg/dL (0.2-1.0); Calcium 7.8 mg/dL (8.5-10.1); Total Protein 7.4 g/dL (6.4-8.2)
[2019-10-11 12:45] LABS: Free T4 (Free Thyroxine) 1.28 ng/dL (0.89-1.76); Prostate Specific Antigen 1.54 ng/mL (0.0-4.0)
== END | disposition home or self-care (01) ==
LOC: CHF HDHVI 08:19
PROVIDERS: ATTEND Internal Medicine Cardiovascular Disease
DX: C61 Malignant neoplasm of prostate (principal); E11.9 Type 2 diabetes mellitus without complications; I10 Essential (primary) hypertension; K90.9 Intestinal malabsorption, unspecified; E03.9 Hypothyroidism, unspecified; N39.0 Urinary tract infection, site not specified; D51.9 Vitamin B12 deficiency anemia, unspecified; D64.9 Anemia, unspecified; E78.5 Hyperlipidemia, unspecified; E55.9 Vitamin D deficiency, unspecified; R53.81 Other malaise; R97.20 Elevated prostate specific antigen [PSA]; Z00.00 Encounter for general adult medical examination without abnormal findings; Z79.899 Other long term (current) drug therapy
CPT/HCPCS: 36415; 80053; 80061; 81003; 82306; 82607; 83036; 84153; 84403; 84439; 84443; 85025

== ENCOUNTER → 2019-10-19 | Outpatient (CLI) | payer MEDICARE, BC | END | disposition home or self-care (01) | LOC: Rad HDHVI 09:55 | PROVIDERS: ATTEND Internal Medicine Cardiovascular Disease | DX: I50.43 Acute on chronic combined systolic (congestive) and diastolic (congestive) heart failure (principal); I25.10 Atherosclerotic heart disease of native coronary artery without angina pectoris; E78.5 Hyperlipidemia, unspecified | CPT/HCPCS: 93306 ==

== ENCOUNTER → 2019-12-06 | Outpatient (CLI) | payer MEDICARE, BC ==
[~2019-12-06] MED LIST changes: +AMLO10TA13 PO; +CALC667C PO; +DOCU100T15 PO; +TEMA15CA91 PO; +TICA1TAB PO
[2019-12-06 11:02] VITALS: BP 133/81
[2019-12-06 11:24] VITALS: BP 136/69
[2019-12-06 12:24] LABS: Basophils # (auto) 0.1 10 ^3/uL (0-0.2); Basophils % (auto) 1.4 % (0.0-2.0); Eosinophils # (auto) 0.2 10 ^3/uL (0-0.8); Eosinophils % (auto) 2.7 % (0.0-7.0); Hematocrit 34.5 % (41.0-53.0); Hemoglobin 11.9 g/dL (13.5-17.5); Lymphocytes # (auto) 0.7 10 ^3/uL (0.4-5.4); Lymphocytes % (auto) 12.6 % (10.0-50.0); Mean Corpuscular Hemoglobin 31.1 pg (28.0-32.0); Mean Corpuscular Hgb Conc. 34.5 g/dL (32.0-36.0); Mean Corpuscular Volume 90.1 fL (80.0-100.0); Monocytes # (auto) 0.6 10 ^3/uL (0-1.3); Monocytes % (auto) 10.1 % (0.0-12.0); Neutrophils # (auto) 4.2 10 ^3/uL (1.6-8.6); Neutrophils % (auto) 73.2 % (37.0-80.0); Nucleated Red Blood Cells % 0.1 %; Platelet Count (auto) 275 10^3/uL (140-450); Red Blood Cells 3.83 10^6/uL (4.5-5.90); Red Cell Distribution Width 13.7 % (11.8-14.3); White Blood Cell 5.8 10^3/uL (4.4-10.8)
[2019-12-06 12:27] LABS: BUN/Creatinine Ratio 8.4; Calcium 7.7 mg/dL (8.5-10.1); Potassium 4.3 mmol/L (3.5-5.1)
[2019-12-06 12:28] LABS: INR 0.98 (0.9-1.15); Partial Thromboplastin Time 28.5 sec (23.0-31.2)
== END | disposition home or self-care (01) ==
LOC: Rad HDHVI 10:51
PROVIDERS: ATTEND Internal Medicine Cardiovascular Disease
DX: Z01.812 Encounter for preprocedural laboratory examination (principal); Z01.818 Encounter for other preprocedural examination; M46.04 Spinal enthesopathy, thoracic region; I50.43 Acute on chronic combined systolic (congestive) and diastolic (congestive) heart failure
CPT/HCPCS: 36415; 71046; 80048; 85025; 85610; 85730; 93005; G0463

== ENCOUNTER 2019-12-12 07:02 | Day surgery (SDC) | payer MEDICARE, BC ==
[~2019-12-12] VITALS: Ht 175.3 cm; Wt 64.4 kg
[~2019-12-12 07:02] MED LIST changes: -ASPI81CH43 PO; -CHOL20007 PO; -CLOP75TA28 PO; -NIFE90TA49 PO
[2019-12-12] MEDS ORDERED: IOHEXOL 350 MG/ML 100ML IJ ONE (07:13)
[2019-12-12] MEDS ORDERED: MIDAZOLAM HCL 1MG/1ML-2 ML VIAL ONE (12:56)
[2019-12-12] MEDS ORDERED: LIDOCAINE 2%HCL (LOCAL ANESTH.) INJ 20ML MDV ONE (12:56)
[2019-12-12] MEDS ORDERED: fentaNYL CITRATE 100 MCG/2 ML VL ONE (12:56)
== END 2019-12-12 15:17 | disposition home or self-care (01) ==
LOC: CATH 07:02
PROVIDERS: ATTEND Internal Medicine Cardiovascular Disease
DX: Z49.01 Encounter for fitting and adjustment of extracorporeal dialysis catheter (principal); I25.10 Atherosclerotic heart disease of native coronary artery without angina pectoris; I13.11 Hypertensive heart and chronic kidney disease without heart failure, with stage 5 chronic kidney disease, or end stage renal disease; E11.22 Type 2 diabetes mellitus with diabetic chronic kidney disease; N18.6 End stage renal disease; E78.5 Hyperlipidemia, unspecified; N40.0 Benign prostatic hyperplasia without lower urinary tract symptoms; Z87.891 Personal history of nicotine dependence; Z79.899 Other long term (current) drug therapy; Z20.828 Contact with and (suspected) exposure to other viral communicable diseases; Z98.890 Other specified postprocedural states
CPT/HCPCS: 36415; 36589; 87426; J1644; J3010; J7040; Q9967; U0003; 99152; J2250

== ENCOUNTER → 2020-02-21 | Outpatient (CLI) | payer MEDICARE, BC ==
[~2020-02-21] MED LIST changes: +AMLO-496 PO; -AMLO10TA13 PO; +TEMA15CA2 PO; -TEMA15CA91 PO
== END | disposition home or self-care (01) ==
LOC: Rad HDHVI 14:04
PROVIDERS: ATTEND Internal Medicine Cardiovascular Disease
DX: I08.8 Other rheumatic multiple valve diseases (principal); I50.43 Acute on chronic combined systolic (congestive) and diastolic (congestive) heart failure; R07.89 Other chest pain
CPT/HCPCS: 93306

== ENCOUNTER → 2020-02-26 | Outpatient (CLI) | payer MEDICARE, BC ==
[~2020-02-26] VITALS: Ht 172.7 cm; Wt 66.2 kg
[~2020-02-26] MED LIST changes: +ADENOSINE 56 MG in GIVE UN-DILUTED 0 ML IV ONE; +ADENOSINE 90 MG/30 ML INJ IV ONE
== END | disposition home or self-care (01) ==
LOC: Rad HDHVI 08:11
PROVIDERS: ATTEND Internal Medicine Cardiovascular Disease
DX: I25.10 Atherosclerotic heart disease of native coronary artery without angina pectoris (principal); I10 Essential (primary) hypertension
CPT/HCPCS: 78452; 93005; 96374; 96375; A9500; J0153

== ENCOUNTER → 2021-03-05 | Day surgery (SDC) | payer MEDICARE, BC ==
[2021-03-03 10:51] LABS: Basophils # (auto) 0.1 10 ^3/uL (0-0.2); Basophils % (auto) 1.3 % (0.0-2.0); Eosinophils # (auto) 0.1 10 ^3/uL (0-0.8); Eosinophils % (auto) 2.8 % (0.0-7.0); Hematocrit 37.1 % (41.0-53.0); Hemoglobin 12.2 g/dL (13.5-17.5); Lymphocytes # (auto) 0.6 10 ^3/uL (0.4-5.4); Mean Corpuscular Hemoglobin 28.7 pg (28.0-32.0); Monocytes # (auto) 0.4 10 ^3/uL (0-1.3); Monocytes % (auto) 10.3 % (0.0-12.0); Neutrophils % (auto) 71.6 % (37.0-80.0); Red Blood Cells 4.27 10^6/uL (4.5-5.90); Red Cell Distribution Width 15.2 % (11.8-14.3); White Blood Cell 4.3 10^3/uL (4.4-10.8)
[2021-03-03 10:55] LABS: Urine Bacteria NONE SEEN /hpf (None Seen); Urine Blood Negative /uL (Negative); Urine Specific Gravity 1.014 (1.001-1.035); Urine WBC 1 /hpf (0 - 3)
[2021-03-03 11:43] LABS: Potassium 4.3 mmol/L (3.5-5.1)
[2021-03-03 11:52] LABS: Albumin 4.1 g/dL (3.4-5.0); BUN/Creatinine Ratio 6.5; Bilirubin, Total 0.3 mg/dL (0.2-1.0); Calcium 8.9 mg/dL (8.5-10.1); Total Protein 7.1 g/dL (6.4-8.2)
[~2021-03-05] VITALS: Ht 175.3 cm; Wt 66.2 kg
[~2021-03-05] MED LIST changes: +ACE3T PO; -ADENOSINE 56 MG in GIVE UN-DILUTED 0 ML IV ONE; -ADENOSINE 90 MG/30 ML INJ IV ONE; +CHOL500014 PO; -DOCU100T15 PO; +DOXAPRAM HCL 20 MG/ML 20ML VIAL INJ IV ONE; +ETOMIDATE (2MG/ML) 20ML VIAL IV ONE; +GLYCOPYRROLATE 0.2 MG/ML 1ML VIAL ONE; +HYDROmorphone HCL 2 MG/ML VL IV PRN; +LACT10SO70 PO; +METOCLOPRAMIDE HCL 5MG/ml INJ 2ml VIAL IV PRN; +MIDAZOLAM HCL 2MG/2ML 2ml VIAL (1mg/ml) ONE; +MORPHINE SULFATE 4 MG/ML SYR/VIAL IV PRN; +MULT-1018 OR; +NEOSTIGMINE 1 MG/ML INJ (10mg/10ML VIAL) ONE; +ONDANSETRON HCL 4 MG/2 ML VIAL ONE; +PANT40TA2 PO; +PROPOFOL 10 MG/ML 20 ML IV ONE; +RIVA2.5T PO; +ROCURONIUM 10MG/ML 10ML VIAL IV ONE; +SODIUM CHLORIDE LOCK 10 ML ONE; +SUCCINYLCHOLINE CHLORIDE 20 MG/ML 10ML VIAL IV ONE; -TICA1TAB PO; +ZINC220C10 PO; +ceFAZolin 1GM VL ONE; +ceFAZolin 1GM/50ML 100 ML IV ONE; +fentaNYL CITRATE 100 MCG/2 ML VL ONE
[2021-03-05 09:50] VITALS: BP 142/60
== END | disposition home or self-care (01) ==
LOC: SUR 06:13
PROVIDERS: ATTEND Surgery
DX: I12.9 Hypertensive chronic kidney disease with stage 1 through stage 4 chronic kidney disease, or unspecified chronic kidney disease (principal); N18.6 End stage renal disease; E03.9 Hypothyroidism, unspecified; Z98.890 Other specified postprocedural states; Z79.899 Other long term (current) drug therapy; Z86.73 Personal history of transient ischemic attack (TIA), and cerebral infarction without residual deficits; Z20.822 Contact with and (suspected) exposure to COVID-19
CPT/HCPCS: 36415; 49324; 80053; 81001; 85025; J0330; J0690; J2250; J2405; J2704; J3010; J7030; U0003

== ENCOUNTER → 2021-04-07 | Outpatient (CLI) | payer MEDICARE, BC ==
[~2021-04-07] MED LIST changes: -ACE3T PO; -DOXAPRAM HCL 20 MG/ML 20ML VIAL INJ IV ONE; -ETOMIDATE (2MG/ML) 20ML VIAL IV ONE; -GLYCOPYRROLATE 0.2 MG/ML 1ML VIAL ONE; -HYDROmorphone HCL 2 MG/ML VL IV PRN; -METOCLOPRAMIDE HCL 5MG/ml INJ 2ml VIAL IV PRN; -MIDAZOLAM HCL 2MG/2ML 2ml VIAL (1mg/ml) ONE; -MORPHINE SULFATE 4 MG/ML SYR/VIAL IV PRN; -NEOSTIGMINE 1 MG/ML INJ (10mg/10ML VIAL) ONE; -ONDANSETRON HCL 4 MG/2 ML VIAL ONE; -PROPOFOL 10 MG/ML 20 ML IV ONE; -ROCURONIUM 10MG/ML 10ML VIAL IV ONE; -SODIUM CHLORIDE LOCK 10 ML ONE; -SUCCINYLCHOLINE CHLORIDE 20 MG/ML 10ML VIAL IV ONE; -ceFAZolin 1GM VL ONE; -ceFAZolin 1GM/50ML 100 ML IV ONE; -fentaNYL CITRATE 100 MCG/2 ML VL ONE
[2021-04-07 15:37] LABS: Albumin 4.2 g/dL (3.4-5.0); Potassium 5.4 mmol/L (3.5-5.1)
[2021-04-07 15:41] LABS: Bilirubin, Direct 0.1 mg/dL (0-0.2); Bilirubin, Total 0.4 mg/dL (0.2-1.0); Total Protein 7.6 g/dL (6.4-8.2)
[2021-04-07 15:49] LABS: Basophils # (auto) 0.1 10 ^3/uL (0-0.2); Basophils % (auto) 1.3 % (0.0-2.0); Eosinophils # (auto) 0.3 10 ^3/uL (0-0.8); Eosinophils % (auto) 4.3 % (0.0-7.0); Hematocrit 36.9 % (41.0-53.0); Hemoglobin 12.2 g/dL (13.5-17.5); Lymphocytes # (auto) 0.7 10 ^3/uL (0.4-5.4); Lymphocytes % (auto) 11.3 % (10.0-50.0); Mean Corpuscular Hemoglobin 28.4 pg (28.0-32.0); Mean Corpuscular Hgb Conc. 32.9 g/dL (32.0-36.0); Mean Corpuscular Volume 86.2 fL (80.0-100.0); Monocytes # (auto) 0.7 10 ^3/uL (0-1.3); Monocytes % (auto) 11.8 % (0.0-12.0); Neutrophils # (auto) 4.2 10 ^3/uL (1.6-8.6); Neutrophils % (auto) 71.3 % (37.0-80.0); Nucleated Red Blood Cells % 0.1 %; Red Blood Cells 4.28 10^6/uL (4.5-5.90); Red Cell Distribution Width 14.9 % (11.8-14.3); White Blood Cell 5.8 10^3/uL (4.4-10.8)
[2021-04-07 16:04] LABS: Urine Blood Negative /uL (Negative); Urine Specific Gravity 1.014 (1.001-1.035)
== END | disposition home or self-care (01) ==
LOC: LAB 11:06
PROVIDERS: ATTEND Internal Medicine Cardiovascular Disease
DX: C61 Malignant neoplasm of prostate (principal); E11.9 Type 2 diabetes mellitus without complications; D51.3 Other dietary vitamin B12 deficiency anemia; D64.9 Anemia, unspecified; E55.9 Vitamin D deficiency, unspecified; I10 Essential (primary) hypertension; R00.2 Palpitations; R53.1 Weakness; R30.0 Dysuria
CPT/HCPCS: 36415; 80048; 80061; 80076; 81003; 82306; 83036; 84153; 84403; 84443; 85025

== ENCOUNTER → 2021-06-10 | Outpatient (CLI) | payer MEDICARE, BC ==
[~2021-06-10] MED LIST changes: +IOHEXOL 300 MG/ML 100ML BOTTLE IJ ONE
== END | disposition home or self-care (01) ==
LOC: XYW 11:44
PROVIDERS: ATTEND Surgery
DX: T85.611A Breakdown (mechanical) of intraperitoneal dialysis catheter, initial encounter (principal)
CPT/HCPCS: 76000; Q9967

== ENCOUNTER 2021-09-03 08:24 | Day surgery (SDC) | payer MEDICARE, BC ==
[2021-09-01 08:39] LABS: Basophils # (auto) 0.1 10 ^3/uL (0-0.2); Basophils % (auto) 2.5 % (0.0-2.0); Eosinophils # (auto) 0.3 10 ^3/uL (0-0.8); Eosinophils % (auto) 5.9 % (0.0-7.0); Hematocrit 34.4 % (41.0-53.0); Hemoglobin 11.4 g/dL (13.5-17.5); Lymphocytes # (auto) 0.8 10 ^3/uL (0.4-5.4); Lymphocytes % (auto) 13.4 % (10.0-50.0); Mean Corpuscular Hemoglobin 29.1 pg (28.0-32.0); Mean Corpuscular Hgb Conc. 33.2 g/dL (32.0-36.0); Mean Corpuscular Volume 87.7 fL (80.0-100.0); Monocytes # (auto) 0.6 10 ^3/uL (0-1.3); Monocytes % (auto) 10.3 % (0.0-12.0); Neutrophils % (auto) 67.9 % (37.0-80.0); Red Blood Cells 3.92 10^6/uL (4.5-5.90); Red Cell Distribution Width 13.4 % (11.8-14.3); White Blood Cell 5.9 10^3/uL (4.4-10.8)
[2021-09-01 08:58] LABS: INR 0.94 (0.9-1.15); Partial Thromboplastin Time 27.1 sec (24.6-33.4)
[2021-09-01 09:12] LABS: Urine Bacteria NONE SEEN /hpf (None Seen); Urine Blood Negative /uL (Negative); Urine Specific Gravity 1.012 (1.001-1.035); Urine WBC 1 /hpf (0 - 3)
[2021-09-01 09:13] LABS: Potassium 5.4 mmol/L (3.5-5.1)
[2021-09-01 09:19] LABS: BUN/Creatinine Ratio 6.8; Bilirubin, Total 0.4 mg/dL (0.2-1.0); Calcium 8.4 mg/dL (8.5-10.1); Total Protein 6.7 g/dL (6.4-8.2)
[~2021-09-03] VITALS: Ht 175.3 cm; Wt 66.2 kg
[~2021-09-03 08:24] MED LIST changes: -IOHEXOL 300 MG/ML 100ML BOTTLE IJ ONE
[2021-09-03] MEDS ORDERED: SODIUM CHLOR 0.9% PF (SALINE LOCK) 10ML VIAL/SYR IV ONE (08:25)
[2021-09-03] MEDS ORDERED: ceFAZolin 1GM/50ML 100 ML IV ONE (10:00)
[2021-09-03] MEDS ORDERED: BUPIVACAINE 0.25% INJ 50ML VIAL ONE (12:04)
[2021-09-03] MEDS ORDERED: PROPOFOL 10 MG/ML 20 ML IV ONE (12:44)
[2021-09-03] MEDS ORDERED: fentaNYL CITRATE 100 MCG/2 ML VL ONE (12:44)
[2021-09-03] MEDS ORDERED: DexAMETHasone SOD PHOS 10MG/1ML VIAL INJ ONE (12:44)
[2021-09-03] MEDS ORDERED: MIDAZOLAM HCL 2MG/2ML 2ml VIAL (1mg/ml) ONE (12:44)
[2021-09-03] MEDS ORDERED: MIDAZOLAM HCL 2MG/2ML 2ml VIAL (1mg/ml) IV PRN (13:30)
[2021-09-03] MEDS ORDERED: hydrALAZINE HCL 20 MG/ML VL IV PRN (13:30)
[2021-09-03] MEDS ORDERED: fentaNYL CITRATE 100 MCG/2 ML VL IV PRN (13:30)
[2021-09-03] MEDS ORDERED: ePHEDrine SULFATE 50 MG/ML AMP IV PRN (13:30)
[2021-09-03] MEDS ORDERED: LABETALOL HCL 5 MG/ML 4ML SYRINGE IV PRN (13:30)
[2021-09-03] MEDS ORDERED: ONDANSETRON HCL 4 MG/2 ML VIAL IV PRN (13:30)
[2021-09-03 14:30] VITALS: BP 125/65
[2021-09-03] MEDS ORDERED: BUPIVACAINE 0.25% INJ 50ML VIAL IJ ONE (15:52)
== END 2021-09-03 14:32 | disposition home or self-care (01) ==
LOC: SUR 08:24
PROVIDERS: ATTEND Surgery
DX: T85.611A Breakdown (mechanical) of intraperitoneal dialysis catheter, initial encounter (principal); I12.9 Hypertensive chronic kidney disease with stage 1 through stage 4 chronic kidney disease, or unspecified chronic kidney disease; E11.22 Type 2 diabetes mellitus with diabetic chronic kidney disease; N18.9 Chronic kidney disease, unspecified; I25.10 Atherosclerotic heart disease of native coronary artery without angina pectoris; Z98.890 Other specified postprocedural states; Z79.899 Other long term (current) drug therapy; Z20.822 Contact with and (suspected) exposure to COVID-19; Y84.1 Kidney dialysis as the cause of abnormal reaction of the patient, or of later complication, without mention of misadventure at the time of the procedure
CPT/HCPCS: 36415; 49422; 80053; 81001; 82962; 85025; 85610; 85730; 86850; 86900; 86901; 88300; J0690; J1100; J2250; J2704; J3010; J3490; J7030; U0003

== ENCOUNTER → 2022-02-11 | Outpatient (CLI) | payer MEDICARE, BC | END | disposition home or self-care (01) | LOC: Rad HDHVI 12:55 | PROVIDERS: ATTEND Internal Medicine Cardiovascular Disease | DX: I08.8 Other rheumatic multiple valve diseases (principal); R06.02 Shortness of breath; I11.9 Hypertensive heart disease without heart failure | CPT/HCPCS: 93306 ==

== ENCOUNTER 2022-02-19 13:24 | Inpatient (IN) | payer MEDICARE, BC ==
[~2022-02-19] VITALS: Ht 167.6 cm; Wt 67.4 kg
[2022-02-19] MEDS ORDERED: METOPROLOL TARTRATE 1MG/1ML-5ML VIAL IV ONE (14:00)
[2022-02-19 14:05] LABS: Basophils # (auto) 0.1 10 ^3/uL (0-0.2); Basophils % (auto) 0.5 % (0.0-2.0); Eosinophils # (auto) 0.2 10 ^3/uL (0-0.8); Eosinophils % (auto) 1.5 % (0.0-7.0); Hematocrit 30.8 % (41.0-53.0); Hemoglobin 10.3 g/dL (13.5-17.5); Lymphocytes # (auto) 0.6 10 ^3/uL (0.4-5.4); Lymphocytes % (auto) 4.5 % (10.0-50.0); Mean Corpuscular Hemoglobin 29.9 pg (28.0-32.0); Mean Corpuscular Hgb Conc. 33.5 g/dL (32.0-36.0); Mean Corpuscular Volume 89.2 fL (80.0-100.0); Monocytes # (auto) 1.2 10 ^3/uL (0-1.3); Monocytes % (auto) 8.8 % (0.0-12.0); Neutrophils # (auto) 11.2 10 ^3/uL (1.6-8.6); Neutrophils % (auto) 84.7 % (37.0-80.0); Red Blood Cells 3.45 10^6/uL (4.5-5.90); Red Cell Distribution Width 15.4 % (11.8-14.3); White Blood Cell 13.2 10^3/uL (4.4-10.8)
[2022-02-19 14:15] LABS: INR 0.93 (0.9-1.15); Partial Thromboplastin Time 29.2 sec (24.6-33.4)
[2022-02-19 14:27] LABS: BUN/Creatinine Ratio 5.7; Calcium 8.4 mg/dL (8.5-10.1); Potassium 3.6 mmol/L (3.5-5.1)
[2022-02-19 14:30] LABS: Bilirubin, Total 0.4 mg/dL (0.2-1.0); Total Protein 7.1 g/dL (6.4-8.2)
[2022-02-19] MEDS ORDERED: ONDANSETRON HCL 4 MG/2 ML VIAL IV PRN (18:30)
[2022-02-19] MEDS ORDERED: MORPHINE SULFATE 4 MG/ML SYR/VIAL IV PRN (18:30)
[2022-02-19] MEDS ORDERED: NITROGLYCERIN 0.4 MG SL TAB SL PRN (18:30)
[2022-02-19 19:54] LABS: Urine Bacteria NONE SEEN /hpf (None Seen); Urine Blood Negative /uL (Negative); Urine WBC 1 /hpf (0 - 3)
[2022-02-19] MEDS ORDERED: TEMAZEPAM 15 MG CAP PO PRN (20:45)
[2022-02-19] MEDS: ATORVASTATIN 20 MG TAB PO SCH (21:37)
[2022-02-19] MEDS: METOPROLOL TARTRATE 25 MG TAB PO SCH (21:38)
[2022-02-19] MEDS: amLODIPine BESYLATE 5 MG TAB PO SCH (21:38)
[2022-02-19] MEDS: HEPARIN SODIUM (PORCINE) 5000 UNITS/ML 1ML VIAL SC SCH (21:42)
[2022-02-20 05:20] LABS: Basophils # (auto) 0 10 ^3/uL (0-0.2); Eosinophils # (auto) 0.2 10 ^3/uL (0-0.8); Eosinophils % (auto) 1.7 % (0.0-7.0); Hematocrit 27.4 % (41.0-53.0); Hemoglobin 9.4 g/dL (13.5-17.5); Lymphocytes # (auto) 0.7 10 ^3/uL (0.4-5.4); Lymphocytes % (auto) 7.6 % (10.0-50.0); Mean Corpuscular Hgb Conc. 34.5 g/dL (32.0-36.0); Mean Corpuscular Volume 89.9 fL (80.0-100.0); Monocytes # (auto) 1.2 10 ^3/uL (0-1.3); Monocytes % (auto) 12.6 % (0.0-12.0); Neutrophils # (auto) 7.3 10 ^3/uL (1.6-8.6); Neutrophils % (auto) 78.1 % (37.0-80.0); Red Blood Cells 3.04 10^6/uL (4.5-5.90); Red Cell Distribution Width 15.4 % (11.8-14.3); White Blood Cell 9.4 10^3/uL (4.4-10.8)
[2022-02-20 05:40] LABS: Albumin 3.5 g/dL (3.4-5.0); Potassium 5.2 mmol/L (3.5-5.1)
[2022-02-20 05:44] LABS: BUN/Creatinine Ratio 6.2; Bilirubin, Total 0.4 mg/dL (0.2-1.0); Total Protein 6.6 g/dL (6.4-8.2)
[2022-02-20] MEDS: HEPARIN SODIUM (PORCINE) 5000 UNITS/ML 1ML VIAL SC SCH ×3 (06:14→22:22)
[2022-02-20] MEDS: LEVOTHYROXINE SODIUM 50 MCG TAB PO SCH (07:02)
[2022-02-20] MEDS ORDERED: FUROSEMIDE 20 MG/2 ML VIAL IV ONE (07:15)
[2022-02-20] MEDS ORDERED: SODIUM BICARBONATE 8.4% INJ 50ML SYRINGE IV ONE (07:15)
[2022-02-20] MEDS ORDERED: CALCIUM GLUC 1,000mg/50ml-NS 50 ML IV ONE (07:15)
[2022-02-20] MEDS ORDERED: DEXTROSE (50%) 50ML SYRG IV ONE (07:15)
[2022-02-20] MEDS ORDERED: SODIUM ZIRCONIUM CYCL 10 GM PAK PO ONE (07:15)
[2022-02-20] MEDS ORDERED: ALBUTEROL SULF 2.5 MG/0.5ML(0.5%) NEB SOLN NEB ONE ×2 (07:15→09:27)
[2022-02-20] MEDS ORDERED: InsuLIN REG 1unit/0.01ml Soln (100units/ml) IV ONE (07:15)
[2022-02-20] MEDS ORDERED: SODIUM CHLORIDE 0.9 % NEB SOLN 3ML NEB ONE (07:48)
[2022-02-20] MEDS: CALCIUM ACETATE 667 MG CAP PO SCH ×3 (08:25→18:23)
[2022-02-20] MEDS: ASPirin 81 mg TAB PO SCH (10:51)
[2022-02-20] MEDS: METOPROLOL TARTRATE 25 MG TAB PO SCH ×2 (10:52→22:21)
[2022-02-20] MEDS: PANTOPRAZOLE 40 MG TAB PO SCH (10:52)
[2022-02-20] MEDS: MULTIPLE VITAMIN TAB PO SCH (10:52)
[2022-02-20] MEDS: amLODIPine BESYLATE 5 MG TAB PO SCH ×2 (10:53→22:20)
[2022-02-20] MEDS ORDERED: guaiFENesin-DM 100/10mg/5ml SYR PO PRN (18:00)
[2022-02-20] MEDS: TAMSULOSIN HYDROCHLORIDE 0.4 MG CAP PO SCH (18:23)
[2022-02-20] MEDS ORDERED: FUROSEMIDE 40 MG/4 ML VIAL IV ONE ×2 (19:00→22:45)
[2022-02-20] MEDS: ACETAMINOPHEN 325 MG TAB PO PRN (20:04)
[2022-02-20] MEDS: ATORVASTATIN 20 MG TAB PO SCH (22:21)
[2022-02-21 00:50] VITALS: BP 145/61
[2022-02-21 04:40] VITALS: BP 139/80
[2022-02-21] MEDS: ACETAMINOPHEN 325 MG TAB PO PRN (06:32)
[2022-02-21] MEDS: LEVOTHYROXINE SODIUM 50 MCG TAB PO SCH (06:32)
[2022-02-21] MEDS ORDERED: SODIUM CHL 0.9% 1000 ML BAG XX ONE (07:00)
[2022-02-21 08:08] LABS: Basophils # (auto) 0 10 ^3/uL (0-0.2); Basophils % (auto) 0.2 % (0.0-2.0); Eosinophils # (auto) 0 10 ^3/uL (0-0.8); Hematocrit 26.7 % (41.0-53.0); Lymphocytes # (auto) 0.5 10 ^3/uL (0.4-5.4); Lymphocytes % (auto) 3.8 % (10.0-50.0); Mean Corpuscular Hemoglobin 30.7 pg (28.0-32.0); Mean Corpuscular Hgb Conc. 33.9 g/dL (32.0-36.0); Mean Corpuscular Volume 90.4 fL (80.0-100.0); Monocytes # (auto) 1.2 10 ^3/uL (0-1.3); Monocytes % (auto) 8.9 % (0.0-12.0); Neutrophils # (auto) 12.1 10 ^3/uL (1.6-8.6); Neutrophils % (auto) 87.1 % (37.0-80.0); Red Blood Cells 2.95 10^6/uL (4.5-5.90); Red Cell Distribution Width 15.2 % (11.8-14.3); White Blood Cell 13.9 10^3/uL (4.4-10.8)
[2022-02-21] MEDS: CALCIUM ACETATE 667 MG CAP PO SCH ×3 (08:26→18:19)
[2022-02-21 08:42] LABS: BUN/Creatinine Ratio 6.6; Calcium 8.1 mg/dL (8.5-10.1)
[2022-02-21 08:53] VITALS: BP 133/58
[2022-02-21] MEDS: ASPirin 81 mg TAB PO SCH (10:41)
[2022-02-21] MEDS: PANTOPRAZOLE 40 MG TAB PO SCH (10:41)
[2022-02-21] MEDS: MULTIPLE VITAMIN TAB PO SCH (10:43)
[2022-02-21] MEDS: METOPROLOL TARTRATE 25 MG TAB PO SCH ×2 (10:43→22:38)
[2022-02-21] MEDS: amLODIPine BESYLATE 5 MG TAB PO SCH ×2 (10:44→22:38)
[2022-02-21 13:00] VITALS: BP 134/63
[2022-02-21 17:00] VITALS: BP 125/56
[2022-02-21] MEDS: TAMSULOSIN HYDROCHLORIDE 0.4 MG CAP PO SCH (18:19)
[2022-02-21] MEDS ORDERED: EPOETIN ALFA-EPBX 10,000 UNIT/1ML VIAL SC ONE (21:00)
[2022-02-21 21:37] VITALS: BP 122/46
[2022-02-21] MEDS: ATORVASTATIN 20 MG TAB PO SCH (22:35)
[2022-02-22 04:51] VITALS: BP 118/48
[2022-02-22] MEDS: LEVOTHYROXINE SODIUM 50 MCG TAB PO SCH (06:24)
[2022-02-22] MEDS: HEPARIN SODIUM (PORCINE) 5000 UNITS/ML 1ML VIAL SC SCH ×3 (06:27→22:36)
[2022-02-22 06:54] LABS: Basophils # (auto) 0 10 ^3/uL (0-0.2); Basophils % (auto) 0.2 % (0.0-2.0); Eosinophils # (auto) 0 10 ^3/uL (0-0.8); Eosinophils % (auto) 0.2 % (0.0-7.0); Hematocrit 25.3 % (41.0-53.0); Hemoglobin 8.5 g/dL (13.5-17.5); Lymphocytes # (auto) 0.7 10 ^3/uL (0.4-5.4); Lymphocytes % (auto) 6.2 % (10.0-50.0); Mean Corpuscular Hemoglobin 30.5 pg (28.0-32.0); Mean Corpuscular Hgb Conc. 33.4 g/dL (32.0-36.0); Mean Corpuscular Volume 91.2 fL (80.0-100.0); Monocytes # (auto) 1.3 10 ^3/uL (0-1.3); Monocytes % (auto) 11.9 % (0.0-12.0); Neutrophils # (auto) 8.8 10 ^3/uL (1.6-8.6); Neutrophils % (auto) 81.5 % (37.0-80.0); Red Blood Cells 2.78 10^6/uL (4.5-5.90); Red Cell Distribution Width 15.2 % (11.8-14.3); White Blood Cell 10.8 10^3/uL (4.4-10.8)
[2022-02-22 07:24] LABS: Calcium 8.4 mg/dL (8.5-10.1); Potassium 4.9 mmol/L (3.5-5.1)
[2022-02-22 07:29] LABS: BUN/Creatinine Ratio 7.2
[2022-02-22] MEDS: CALCIUM ACETATE 667 MG CAP PO SCH ×3 (08:06→18:01)
[2022-02-22 08:27] VITALS: BP 131/54
[2022-02-22] MEDS: MULTIPLE VITAMIN TAB PO SCH (09:40)
[2022-02-22] MEDS: ASPirin 81 mg TAB PO SCH (09:40)
[2022-02-22] MEDS: METOPROLOL TARTRATE 25 MG TAB PO SCH ×2 (09:42→22:34)
[2022-02-22] MEDS: PANTOPRAZOLE 40 MG TAB PO SCH (09:42)
[2022-02-22] MEDS: amLODIPine BESYLATE 5 MG TAB PO SCH ×2 (09:43→22:34)
[2022-02-22 13:00] VITALS: BP 115/77
[2022-02-22 16:40] VITALS: BP 116/46
[2022-02-22] MEDS: TAMSULOSIN HYDROCHLORIDE 0.4 MG CAP PO SCH (18:01)
[2022-02-22 22:00] VITALS: BP 149/44
[2022-02-22] MEDS: ATORVASTATIN 20 MG TAB PO SCH (22:40)
[2022-02-23 05:00] VITALS: BP 117/78
[2022-02-23] MEDS: LEVOTHYROXINE SODIUM 50 MCG TAB PO SCH (06:33)
[2022-02-23] MEDS: HEPARIN SODIUM (PORCINE) 5000 UNITS/ML 1ML VIAL SC SCH (06:37)
[2022-02-23 07:16] LABS: Basophils # (auto) 0.1 10 ^3/uL (0-0.2); Hemoglobin 8.4 g/dL (13.5-17.5); Lymphocytes # (auto) 0.8 10 ^3/uL (0.4-5.4); Monocytes # (auto) 0.9 10 ^3/uL (0-1.3); Neutrophils # (auto) 7.1 10 ^3/uL (1.6-8.6); Neutrophils % (auto) 78.9 % (37.0-80.0)
[2022-02-23 07:18] LABS: Basophils % (auto) 0.7 % (0.0-2.0); Eosinophils # (auto) 0.1 10 ^3/uL (0-0.8); Eosinophils % (auto) 1.6 % (0.0-7.0); Hematocrit 25.3 % (41.0-53.0); Lymphocytes % (auto) 8.4 % (10.0-50.0); Mean Corpuscular Hemoglobin 29.7 pg (28.0-32.0); Mean Corpuscular Hgb Conc. 33.4 g/dL (32.0-36.0); Mean Corpuscular Volume 88.9 fL (80.0-100.0); Monocytes % (auto) 10.4 % (0.0-12.0); Red Blood Cells 2.84 10^6/uL (4.5-5.90); Red Cell Distribution Width 14.7 % (11.8-14.3)
[2022-02-23 07:29] LABS: Calcium 8.5 mg/dL (8.5-10.1); Potassium 4.6 mmol/L (3.5-5.1)
[2022-02-23 09:00] VITALS: BP 118/50
[2022-02-23] MEDS: CALCIUM ACETATE 667 MG CAP PO SCH (09:06)
[2022-02-23] MEDS: PANTOPRAZOLE 40 MG TAB PO SCH (09:06)
[2022-02-23] MEDS: ASPirin 81 mg TAB PO SCH (09:07)
[2022-02-23] MEDS: METOPROLOL TARTRATE 25 MG TAB PO SCH (09:07)
[2022-02-23] MEDS: amLODIPine BESYLATE 5 MG TAB PO SCH (09:07)
[2022-02-23] MEDS: MULTIPLE VITAMIN TAB PO SCH (09:07)
[2022-02-23 15:26] LABS: Hepatitis A Ab IgM Negative; Hepatitis B Core IgM Negative; Hepatitis C Antibody Negative (Negative)
== END 2022-02-23 12:15 | disposition home or self-care (01) | DRG 640 ==
LOC: ER 13:24 → TELE 18:28 → TELE-WESTW 02-20 22:47
PROVIDERS: ADMIT Nurse Practitioner Family; ATTEND Internal Medicine Geriatric Medicine
PROC: 5A1D70Z Performance of Urinary Filtration, Intermittent, Less than 6 Hours Per Day (ICD-10-PCS; principal; 2022-02-21)
DX: E87.70 Fluid overload, unspecified (principal); J96.01 Acute respiratory failure with hypoxia; N18.6 End stage renal disease; I24.9 Acute ischemic heart disease, unspecified; I12.0 Hypertensive chronic kidney disease with stage 5 chronic kidney disease or end stage renal disease; J81.1 Chronic pulmonary edema; E78.5 Hyperlipidemia, unspecified; E03.9 Hypothyroidism, unspecified; D63.1 Anemia in chronic kidney disease; D72.829 Elevated white blood cell count, unspecified; Z20.822 Contact with and (suspected) exposure to COVID-19; E87.5 Hyperkalemia; I25.10 Atherosclerotic heart disease of native coronary artery without angina pectoris; K21.9 Gastro-esophageal reflux disease without esophagitis; M10.9 Gout, unspecified; N40.0 Benign prostatic hyperplasia without lower urinary tract symptoms; I49.9 Cardiac arrhythmia, unspecified; Z99.2 Dependence on renal dialysis
CPT/HCPCS: 36415; 71045; 80048; 80053; 80061; 80074; 81001; 83735; 83880; 84100; 84132; 84443; 84484; 85025; 85379; 85610; 85730; 87040; 87426; 87804; 90935; 93005; 94640; 96365; 96375; 96376; G0378

== ENCOUNTER → 2022-03-04 | Outpatient (CLI) | payer MEDICARE, BC ==
[~2022-03-04] MED LIST changes: -MULT-1018 OR
== END | disposition home or self-care (01) ==
LOC: Rad HDHVI 12:26
PROVIDERS: ATTEND Internal Medicine Cardiovascular Disease
DX: R06.02 Shortness of breath (principal); R07.89 Other chest pain; J18.9 Pneumonia, unspecified organism
CPT/HCPCS: 71046

== ENCOUNTER → 2022-06-02 | Outpatient (CLI) | payer MEDICARE, BC ==
[~2022-06-02] MED LIST changes: +TESTOSTERONE CYPIONATE 200 MG/ML 1ML VIAL IM ONE
[2022-06-02 09:06] VITALS: BP 145/62
== END | disposition home or self-care (01) ==
LOC: CHF HDHVI 09:12
PROVIDERS: ATTEND Internal Medicine Cardiovascular Disease
DX: E29.1 Testicular hypofunction (principal); R53.83 Other fatigue; I12.0 Hypertensive chronic kidney disease with stage 5 chronic kidney disease or end stage renal disease; N18.6 End stage renal disease; I25.10 Atherosclerotic heart disease of native coronary artery without angina pectoris; J96.10 Chronic respiratory failure, unspecified whether with hypoxia or hypercapnia; K21.9 Gastro-esophageal reflux disease without esophagitis; E03.9 Hypothyroidism, unspecified; Z99.2 Dependence on renal dialysis
CPT/HCPCS: 96372; G0463; J1071

== ENCOUNTER → 2022-10-05 | Outpatient (CLI) | payer MEDICARE, BC ==
[~2022-10-05] MED LIST changes: -AMLO-496 PO; +AMLO1TAB23 PO; -TESTOSTERONE CYPIONATE 200 MG/ML 1ML VIAL IM ONE
== END | disposition home or self-care (01) ==
LOC: Rad HDHVI 10:59
PROVIDERS: ATTEND Internal Medicine Cardiovascular Disease
DX: I08.3 Combined rheumatic disorders of mitral, aortic and tricuspid valves (principal); I11.9 Hypertensive heart disease without heart failure; R00.2 Palpitations
CPT/HCPCS: 93306

== ENCOUNTER 2022-11-17 03:39 | Inpatient (IN) | payer MEDICARE, BC ==
[2022-11-17] VITALS (17 sets, daily range): BP systolic 145–164; BP diastolic 65–76; PULSE 72–97; RESP 12–20; TEMP 97.9–98.3; O2SAT 82–100
[~2022-11-17] VITALS: Ht 175.3 cm; Wt 70.5 kg
[2022-11-17] MEDS ORDERED: NITROGLYCERIN 2% OINT 1GM PKG TD ONE (04:00)
[2022-11-17] MEDS ORDERED: FUROSEMIDE 40 MG/4 ML VIAL IV ONE (04:00)
[2022-11-17] MEDS ORDERED: ASPirin 81 mg TAB PO ONE (04:00)
[2022-11-17] MEDS ORDERED: IPRATROPIUM BROM 0.5 MG/2.5ML INH SOL HHN ONE (04:00)
[2022-11-17] MEDS ORDERED: ALBUTEROL SULF 2.5 MG/0.5ML(0.5%) NEB SOLN HHN ONE (04:00)
[2022-11-17] MEDS ORDERED: ACETAMINOPHEN 325 MG TAB PO ONE (04:00)
[2022-11-17] MEDS ORDERED: ENALAPRILAT 1.25 MG/ML-1ML VIAL IV ONE (04:15)
[2022-11-17] MEDS ORDERED: ONDANSETRON HCL 4 MG/2 ML VIAL IV ONE (04:15)
[2022-11-17] MEDS ORDERED: MORPHINE SULFATE 4 MG/ML SYR/VIAL IV PRN (04:15)
[2022-11-17 04:32] LABS: Basophils # (auto) 0.1 10 ^3/uL (0-0.2); Basophils % (auto) 0.7 % (0.0-2.0); Eosinophils # (auto) 0.1 10 ^3/uL (0-0.8); Eosinophils % (auto) 1.3 % (0.0-7.0); Hematocrit 31.2 % (41.0-53.0); Hemoglobin 10.5 g/dL (13.5-17.5); Lymphocytes # (auto) 0.5 10 ^3/uL (0.4-5.4); Lymphocytes % (auto) 5.1 % (10.0-50.0); Mean Corpuscular Hemoglobin 29.8 pg (28.0-32.0); Mean Corpuscular Hgb Conc. 33.6 g/dL (32.0-36.0); Mean Corpuscular Volume 88.5 fL (80.0-100.0); Monocytes # (auto) 0.8 10 ^3/uL (0-1.3); Monocytes % (auto) 7.9 % (0.0-12.0); Red Blood Cells 3.52 10^6/uL (4.5-5.90); Red Cell Distribution Width 16.7 % (11.8-14.3); White Blood Cell 10.6 10^3/uL (4.4-10.8)
[2022-11-17 04:53] LABS: Alanine Aminotransferase 12 U/L (7-40); Albumin 4.8 g/dL (3.2-4.8); Alkaline Phosphatase 105 U/L (46-116); Anion Gap 13 (5-15); Aspartate Aminotransferase < 8 U/L (13-40); BUN/Creatinine Ratio 4.8 (10.0-20.0); Blood Urea Nitrogen 39 mg/dL (9-23); Calcium 8.8 mg/dL (8.7-10.4); Carbon Dioxide 23 mmol/L (20-30); Chloride 106 mmol/L (98-107); Glucose 134 mg/dL (74-106); Magnesium 2.4 mg/dL (1.6-2.6); Sodium 142 mmol/L (136-145)
[2022-11-17 04:54] LABS: Bilirubin, Total 0.3 mg/dL (0.2-1.0); Total Protein 7.2 g/dL (5.7-8.2)
[2022-11-17 05:03] LABS: INR 1.01 (0.9-1.15); Partial Thromboplastin Time 28.8 SEC (24.5-34.5); Prothrombin Time 10.6 sec (9.3-11.8)
[2022-11-17] MEDS ORDERED: PIPERACILLIN-TAZOB 3.375GM 100 ML IV SCH (06:00)
[2022-11-17] MEDS ORDERED: VANCOMYCIN PER PHARMACY 1,000 MG IV SCH (06:00)
[2022-11-17] MEDS ORDERED: VANCOMYCIN 1GM/250ML 250 ML IV ONE (06:15)
[2022-11-17 08:45] LABS: Urine Bacteria NONE SEEN /hpf (None Seen); Urine Blood Negative /uL (Negative); Urine Clarity Clear (Clear); Urine Color Colorless (Yellow); Urine Mucus FEW (None Seen); Urine Protein, UAD 3+ (Negative); Urine Specific Gravity 1.009 (1.001-1.035); Urine Urobilinogen Normal (Negative); Urine WBC 5 /hpf (0 - 3); Urine pH 8.5 (5.0-8.0)
[2022-11-17] MEDS ORDERED: ACETAMINOPHEN 325 MG TAB PO PRN (09:00)
[2022-11-17] MEDS ORDERED: NITROGLYCERIN 0.4 MG SL TAB SL PRN (09:00)
[2022-11-17] MEDS ORDERED: MORPHINE SULFATE INJ 2 MG/ml SYRG IV PRN (09:00)
[2022-11-17] MEDS ORDERED: ALBUTEROL SULF 2.5 MG/0.5ML(0.5%) NEB SOLN NEB PRN (09:00)
[2022-11-17] MEDS ORDERED: cefTRIAXone 1GM/50ML D5W 50 ML IV ONE (09:00)
[2022-11-17] MEDS ORDERED: AZITHROMYCIN 500MG/ 250ML 250 ML IV ONE (09:00)
[2022-11-17] MEDS ORDERED: SODIUM CHL 0.9% 1000 ML BAG XX ONE (09:30)
[2022-11-17] MEDS ORDERED: RIVAROXABAN 2.5 MG TAB PO SCH (10:00)
[2022-11-17] MEDS: amLODIPine BESYLATE 5 MG TAB PO SCH ×2 (10:12→21:11)
[2022-11-17] MEDS: PANTOPRAZOLE 40 MG TAB PO SCH (10:12)
[2022-11-17] MEDS: IPRATROPIUM BROM 0.5 MG/2.5ML INH SOL NEB SCH ×4 (10:32→22:31)
[2022-11-17] MEDS: ALBUTEROL SULF 2.5 MG/0.5ML(0.5%) NEB SOLN NEB SCH ×4 (10:32→22:31)
[2022-11-17] MEDS: CALCIUM ACETATE 667 MG CAP PO SCH ×2 (12:36→18:00)
[2022-11-17] MEDS: TAMSULOSIN HYDROCHLORIDE 0.4 MG CAP PO SCH (20:40)
[2022-11-17] MEDS ORDERED: EPOETIN ALFA-EPBX 10,000 UNIT/1ML VIAL SC ONE (21:00)
[2022-11-17] MEDS: HEPARIN SODIUM (PORCINE) 5000 UNITS/ML 1ML VIAL SC SCH (21:07)
[2022-11-17] MEDS: TEMAZEPAM 15 MG CAP PO SCH (21:10)
[2022-11-18] VITALS (18 sets, daily range): BP systolic 144–185; BP diastolic 66–88; PULSE 67–113; RESP 16–20; TEMP 98.2–98.9; O2SAT 93–100
[2022-11-18] MEDS: ALBUTEROL SULF 2.5 MG/0.5ML(0.5%) NEB SOLN NEB SCH ×6 (01:43→21:50)
[2022-11-18] MEDS: IPRATROPIUM BROM 0.5 MG/2.5ML INH SOL NEB SCH ×6 (01:43→21:50)
[2022-11-18 05:59] LABS: Basophils # (auto) 0.1 10 ^3/uL (0-0.2); Basophils % (auto) 0.7 % (0.0-2.0); Eosinophils # (auto) 0.2 10 ^3/uL (0-0.8); Eosinophils % (auto) 2.7 % (0.0-7.0); Hematocrit 25.9 % (41.0-53.0); Hemoglobin 8.7 g/dL (13.5-17.5); Lymphocytes # (auto) 0.7 10 ^3/uL (0.4-5.4); Lymphocytes % (auto) 7.6 % (10.0-50.0); Mean Corpuscular Hemoglobin 29.4 pg (28.0-32.0); Mean Corpuscular Hgb Conc. 33.7 g/dL (32.0-36.0); Mean Corpuscular Volume 87.4 fL (80.0-100.0); Monocytes # (auto) 0.9 10 ^3/uL (0-1.3); Neutrophils # (auto) 6.9 10 ^3/uL (1.6-8.6); Red Blood Cells 2.97 10^6/uL (4.5-5.90); Red Cell Distribution Width 16.6 % (11.8-14.3); White Blood Cell 8.8 10^3/uL (4.4-10.8)
[2022-11-18 06:09] LABS: Alanine Aminotransferase 11 U/L (7-40); Alkaline Phosphatase 79 U/L (46-116); Anion Gap 12 (5-15); Aspartate Aminotransferase < 8 U/L (13-40); Calcium 8.4 mg/dL (8.5-10.1); Carbon Dioxide 25 mmol/L (20-30); Chloride 105 mmol/L (98-107); Glucose 75 mg/dL (74-106); Sodium 142 mmol/L (136-145)
[2022-11-18 06:10] LABS: Bilirubin, Total 0.3 mg/dL (0.2-1.0); Total Protein 5.7 g/dL (5.7-8.2)
[2022-11-18] MEDS: HEPARIN SODIUM (PORCINE) 5000 UNITS/ML 1ML VIAL SC SCH ×3 (06:11→22:08)
[2022-11-18] MEDS: LEVOTHYROXINE SODIUM 50 MCG TAB PO SCH (06:12)
[2022-11-18 06:18] LABS: Blood Urea Nitrogen 67 mg/dL (9-23)
[2022-11-18 06:22] LABS: Potassium 5.6 mmol/L (3.5-5.1)
[2022-11-18] MEDS ORDERED: cefTRIAXone 1GM/50ML D5W 50 ML IV SCH (09:00)
[2022-11-18] MEDS: PANTOPRAZOLE 40 MG TAB PO SCH (09:22)
[2022-11-18] MEDS: CALCIUM ACETATE 667 MG CAP PO SCH ×3 (09:23→17:22)
[2022-11-18] MEDS ORDERED: AZITHROMYCIN 500MG/ 250ML 250 ML IV SCH (10:00)
[2022-11-18] MEDS ORDERED: hydrALAZINE HCL 20 MG/ML VL IV PRN (11:45)
[2022-11-18] MEDS ORDERED: VANCOMYCIN 1GM/250ML 250 ML IV ONE (15:00)
[2022-11-18 15:07] LABS: % Iron Saturation 10.5 % (20-55)
[2022-11-18] MEDS: amLODIPine BESYLATE 5 MG TAB PO SCH ×2 (15:08→22:07)
[2022-11-18] MEDS: TAMSULOSIN HYDROCHLORIDE 0.4 MG CAP PO SCH (17:22)
[2022-11-18] MEDS: TEMAZEPAM 15 MG CAP PO SCH (22:07)
[2022-11-19] VITALS (7 sets, daily range): BP systolic 100–153; BP diastolic 69–70; PULSE 74–93; RESP 16–19; TEMP 98.2–98.6; O2SAT 94–99
[2022-11-19] MEDS: ALBUTEROL SULF 2.5 MG/0.5ML(0.5%) NEB SOLN NEB SCH ×4 (02:00→14:22)
[2022-11-19] MEDS: IPRATROPIUM BROM 0.5 MG/2.5ML INH SOL NEB SCH ×4 (02:00→14:22)
[2022-11-19] MEDS: HEPARIN SODIUM (PORCINE) 5000 UNITS/ML 1ML VIAL SC SCH (06:00)
[2022-11-19] MEDS: LEVOTHYROXINE SODIUM 50 MCG TAB PO SCH (07:00)
[2022-11-19] MEDS: CALCIUM ACETATE 667 MG CAP PO SCH ×2 (08:00→12:00)
[2022-11-19] MEDS: PANTOPRAZOLE 40 MG TAB PO SCH (10:00)
[2022-11-19] MEDS: amLODIPine BESYLATE 5 MG TAB PO SCH (10:00)
[2022-11-19 11:20] LABS: Alanine Aminotransferase 12 U/L (7-40); Albumin 4.5 g/dL (3.2-4.8); Alkaline Phosphatase 86 U/L (46-116); Anion Gap 8 (5-15); Aspartate Aminotransferase < 8 U/L (13-40); BUN/Creatinine Ratio 4.8 (10.0-20.0); Bilirubin, Total 0.5 mg/dL (0.2-1.0); Calcium 9.2 mg/dL (8.5-10.1); Carbon Dioxide 29 mmol/L (20-30); Chloride 102 mmol/L (98-107); Glucose 75 mg/dL (74-106); Potassium 4.9 mmol/L (3.5-5.1); Sodium 139 mmol/L (136-145); Total Protein 6.7 g/dL (5.7-8.2)
[2022-11-19 11:35] LABS: Blood Urea Nitrogen 33 mg/dL (9-23)
[2022-11-19 11:36] LABS: Basophils # (auto) 0.1 10 ^3/uL (0-0.2); Basophils % (auto) 0.8 % (0.0-2.0); Eosinophils # (auto) 0.2 10 ^3/uL (0-0.8); Eosinophils % (auto) 2.8 % (0.0-7.0); Hematocrit 33.4 % (41.0-53.0); Hemoglobin 11.3 g/dL (13.5-17.5); Lymphocytes # (auto) 0.9 10 ^3/uL (0.4-5.4); Lymphocytes % (auto) 10.4 % (10.0-50.0); Mean Corpuscular Hemoglobin 29.6 pg (28.0-32.0); Mean Corpuscular Hgb Conc. 33.8 g/dL (32.0-36.0); Mean Corpuscular Volume 87.5 fL (80.0-100.0); Monocytes # (auto) 0.9 10 ^3/uL (0-1.3); Monocytes % (auto) 10.8 % (0.0-12.0); Neutrophils # (auto) 6.2 10 ^3/uL (1.6-8.6); Neutrophils % (auto) 75.2 % (37.0-80.0); Nucleated Red Blood Cells % 0.2 %; Red Blood Cells 3.82 10^6/uL (4.5-5.90); White Blood Cell 8.3 10^3/uL (4.4-10.8)
== END 2022-11-19 18:30 | disposition home or self-care (01) | DRG 291 ==
LOC: EDBD 03:39 → ER 03:39 → TELE 09:06 → TELE-CENTR 14:41
PROVIDERS: ADMIT Internal Medicine; ATTEND Internal Medicine
PROC: 5A1D70Z Performance of Urinary Filtration, Intermittent, Less than 6 Hours Per Day (ICD-10-PCS; principal; 2022-11-18)
PROC: 30233N1 Transfusion of Nonautologous Red Blood Cells into Peripheral Vein, Percutaneous Approach (ICD-10-PCS; 2022-11-18)
DX: I13.2 Hypertensive heart and chronic kidney disease with heart failure and with stage 5 chronic kidney disease, or end stage renal disease (principal); I50.33 Acute on chronic diastolic (congestive) heart failure; N18.6 End stage renal disease; I16.1 Hypertensive emergency; D63.1 Anemia in chronic kidney disease; E03.9 Hypothyroidism, unspecified; I35.8 Other nonrheumatic aortic valve disorders; E87.5 Hyperkalemia; N40.0 Benign prostatic hyperplasia without lower urinary tract symptoms; I25.10 Atherosclerotic heart disease of native coronary artery without angina pectoris; Z82.49 Family history of ischemic heart disease and other diseases of the circulatory system; Z83.3 Family history of diabetes mellitus; Z98.61 Coronary angioplasty status; Z99.2 Dependence on renal dialysis
CPT/HCPCS: 36415; 36600; 71045; 78582; 80053; 80202; 81001; 82728; 82805; 83540; 83550; 83605; 83690; 83735; 83880; 84443; 84484; 85025; 85045; 85379; 85610; 85730; 86850; 86900; 86901; 86920; 87040; 90935; 93005; 94640; 97110; 97116; 97163; 97530; G0378; J0696; J1642; J2405; J2543

== ENCOUNTER 2022-12-15 06:15 | Emergency (ER) | payer MEDICARE, BC ==
[~2022-12-15] VITALS: Ht 175.3 cm; Wt 66.4 kg
[2022-12-15 06:21] VITALS: BP 176/83
[2022-12-15 06:34] VITALS: PULSE 86
[2022-12-15] MEDS ORDERED: ALBUTEROL SULF 2.5 MG/0.5ML(0.5%) NEB SOLN NEB ONE (07:30)
[2022-12-15] MEDS ORDERED: IPRATROPIUM BROM 0.5 MG/2.5ML INH SOL NEB ONE (07:30)
[2022-12-15] MEDS ORDERED: methylPREDNISolone SOD SUCC 125 MG/2 ML VL IV ONE (07:30)
[2022-12-15 07:47] VITALS: RESP 16; O2SAT 96
[2022-12-15 07:54] LABS: Basophils # (auto) 0.1 10 ^3/uL (0-0.2); Basophils % (auto) 0.9 % (0.0-2.0); Eosinophils # (auto) 0 10 ^3/uL (0-0.8); Eosinophils % (auto) 0.2 % (0.0-7.0); Hematocrit 38.2 % (41.0-53.0); Hemoglobin 12.3 g/dL (13.5-17.5); Lymphocytes # (auto) 0.3 10 ^3/uL (0.4-5.4); Lymphocytes % (auto) 2.5 % (10.0-50.0); Mean Corpuscular Hemoglobin 28.5 pg (28.0-32.0); Mean Corpuscular Hgb Conc. 32.1 g/dL (32.0-36.0); Mean Corpuscular Volume 88.9 fL (80.0-100.0); Monocytes # (auto) 1.1 10 ^3/uL (0-1.3); Monocytes % (auto) 7.8 % (0.0-12.0); Neutrophils # (auto) 12.2 10 ^3/uL (1.6-8.6); Neutrophils % (auto) 88.6 % (37.0-80.0); Nucleated Red Blood Cells % 0.1 %; White Blood Cell 13.7 10^3/uL (4.4-10.8)
[2022-12-15 08:08] LABS: INR 1.04 (0.9-1.15); Partial Thromboplastin Time 30.5 SEC (24.5-34.5); Prothrombin Time 10.9 sec (9.3-11.8)
[2022-12-15 10:01] LABS: Chloride 100 mmol/L (98-107); Sodium 136 mmol/L (136-145)
[2022-12-15 10:04] LABS: Anion Gap 16 (5-15); Calcium 9.1 mg/dL (8.5-10.1); Carbon Dioxide 20 mmol/L (20-30)
[2022-12-15 10:09] LABS: Alkaline Phosphatase 105 U/L (46-116); Blood Urea Nitrogen 62 mg/dL (9-23); Glucose 103 mg/dL (74-106)
[2022-12-15 10:10] LABS: Alanine Aminotransferase 13 U/L (7-40)
[2022-12-15 10:11] LABS: Albumin 5.1 g/dL (3.2-4.8); Aspartate Aminotransferase 14 U/L (13-40); Bilirubin, Total 0.3 mg/dL (0.2-1.0); Total Protein 7.5 g/dL (5.7-8.2)
== END 2022-12-15 08:47 | disposition left against medical advice (07) ==
LOC: EDBD 06:15 → EDUNIT# 06:15 → ER 06:15
DX: I13.2 Hypertensive heart and chronic kidney disease with heart failure and with stage 5 chronic kidney disease, or end stage renal disease (principal); N18.6 End stage renal disease; I50.9 Heart failure, unspecified; M10.9 Gout, unspecified; Z87.891 Personal history of nicotine dependence
CPT/HCPCS: 36415; 71045; 80053; 83880; 84484; 85025; 85610; 85730; 93005; 94640; 99285; J7644

== ENCOUNTER → 2023-02-15 | Outpatient (CLI) | payer MEDICARE, BC | END | disposition home or self-care (01) | LOC: Rad HDHVI 10:00 | PROVIDERS: ATTEND Internal Medicine Cardiovascular Disease | DX: I65.21 Occlusion and stenosis of right carotid artery (principal); I11.0 Hypertensive heart disease with heart failure; I50.33 Acute on chronic diastolic (congestive) heart failure | CPT/HCPCS: 93880 ==

== ENCOUNTER → 2023-11-10 | Outpatient (CLI) | payer MEDICARE, BC ==
[~2023-11-10] MED LIST changes: -TAMS0.4C36 PO; +TAMS0.4C39 PO
== END | disposition home or self-care (01) ==
LOC: Rad HDHVI 08:56
PROVIDERS: ATTEND Internal Medicine Cardiovascular Disease
DX: I11.0 Hypertensive heart disease with heart failure (principal); I50.9 Heart failure, unspecified
CPT/HCPCS: 93306

== ENCOUNTER 2023-11-25 16:40 | Inpatient (IN) | payer MEDICARE, BC ==
[~2023-11-25] VITALS: Ht 172.7 cm; Wt 56.9 kg
[2023-11-25 17:00] VITALS: PULSE 86; RESP 14; O2SAT 100
[2023-11-25 17:25] LABS: Basophils # (auto) 0.1 10 ^3/uL (0-0.2); Basophils % (auto) 0.5 % (0.0-2.0); Eosinophils # (auto) 0 10 ^3/uL (0-0.8); Eosinophils % (auto) 0.1 % (0.0-7.0); Lymphocytes # (auto) 0.5 10 ^3/uL (0.4-5.4); Monocytes # (auto) 0.9 10 ^3/uL (0-1.3)
[2023-11-25] MEDS: SODIUM CHLORIDE 0.9% 1,000 ML IV ONE (17:27)
[2023-11-25 17:28] LABS: Hematocrit 17.6 % (41.0-53.0); Lymphocytes % (auto) 3.3 % (10.0-50.0); Mean Corpuscular Hemoglobin 30.7 pg (28.0-32.0); Mean Corpuscular Hgb Conc. 32.8 g/dL (32.0-36.0); Mean Corpuscular Volume 93.6 fL (80.0-100.0); Monocytes % (auto) 5.8 % (0.0-12.0); Neutrophils # (auto) 14.8 10 ^3/uL (1.6-8.6); Neutrophils % (auto) 90.3 % (37.0-80.0); Platelet Count (auto) 389 10^3/uL (140-450); Red Blood Cells 1.88 10^6/uL (4.5-5.90); Red Cell Distribution Width 15.1 % (11.8-14.3); White Blood Cell 16.3 10^3/uL (4.4-10.8)
[2023-11-25 17:35] LABS: Hemoglobin 5.8 g/dL (13.5-17.5)
[2023-11-25 17:38] LABS: Chloride 102 mmol/L (98-107); Potassium 4.8 mmol/L (3.5-5.1); Sodium 139 mmol/L (136-145)
[2023-11-25 17:39] LABS: Anion Gap 9 (5-15); Calcium 8.7 mg/dL (8.7-10.4); Carbon Dioxide 28 mmol/L (20-31)
[2023-11-25 17:44] LABS: BUN/Creatinine Ratio 11.6 (10.0-20.0); Blood Urea Nitrogen 44 mg/dL (9-23); Glucose 151 mg/dL (74-106)
[2023-11-25 20:30] VITALS: BP 146/59; PULSE 79; RESP 19; TEMP 98.9
[2023-11-25 20:55] VITALS: BP 141/53; PULSE 81; RESP 19; TEMP 98.7
[2023-11-25 22:49] VITALS: BP 140/59; PULSE 82; RESP 15; TEMP 99.3
[2023-11-25] MEDS ORDERED: ACETAMINOPHEN 500 MG TAB PO PRN (23:15)
[2023-11-25] MEDS: PANTOPRAZOLE 40 MG/10 ML VIAL INJ IV SCH (23:31)
[2023-11-25 23:55] VITALS: BP 133/56; PULSE 83; RESP 17; TEMP 98.5
[2023-11-26] VITALS (15 sets, daily range): BP systolic 133–154; BP diastolic 55–72; PULSE 61–83; RESP 16–18; TEMP 98–98.7; O2SAT 95–100
[2023-11-26] MEDS ORDERED: SODIUM CHLORIDE 0.9% 1,000 ML IV SCH (02:45)
[2023-11-26] MEDS: LEVOTHYROXINE SODIUM 50 MCG TAB PO SCH (06:51)
[2023-11-26 06:56] LABS: Basophils # (auto) 0.1 10 ^3/uL (0-0.2); Basophils % (auto) 0.7 % (0.0-2.0); Eosinophils # (auto) 0.1 10 ^3/uL (0-0.8); Eosinophils % (auto) 0.6 % (0.0-7.0); Hematocrit 21.2 % (41.0-53.0); Hemoglobin 7.2 g/dL (13.5-17.5); Lymphocytes # (auto) 0.8 10 ^3/uL (0.4-5.4); Lymphocytes % (auto) 6.5 % (10.0-50.0); Mean Corpuscular Hemoglobin 30.4 pg (28.0-32.0); Mean Corpuscular Volume 89.4 fL (80.0-100.0); Monocytes # (auto) 0.9 10 ^3/uL (0-1.3); Monocytes % (auto) 8.1 % (0.0-12.0); Neutrophils # (auto) 9.7 10 ^3/uL (1.6-8.6); Neutrophils % (auto) 84.1 % (37.0-80.0); Nucleated Red Blood Cells % 0.1 %; Platelet Count (auto) 315 10^3/uL (140-450); Red Blood Cells 2.37 10^6/uL (4.5-5.90); Red Cell Distribution Width 15.4 % (11.8-14.3); White Blood Cell 11.5 10^3/uL (4.4-10.8)
[2023-11-26 07:11] LABS: Alanine Aminotransferase 10 U/L (7-40); Albumin 3.6 g/dL (3.2-4.8); Alkaline Phosphatase 69 U/L (46-116); Anion Gap 9 (5-15); Aspartate Aminotransferase 11 U/L (13-40); BUN/Creatinine Ratio 15.6 (10.0-20.0); Bilirubin, Direct < 0.1 mg/dL (<0.3); Calcium 8.4 mg/dL (8.7-10.4); Carbon Dioxide 26 mmol/L (20-31); Chloride 105 mmol/L (98-107); Glucose 91 mg/dL (74-106); Sodium 140 mmol/L (136-145)
[2023-11-26 07:12] LABS: Bilirubin, Total 0.2 mg/dL (0.2-1.0); Total Protein 5.2 g/dL (5.7-8.2)
[2023-11-26 07:13] LABS: Blood Urea Nitrogen 76 mg/dL (9-23)
[2023-11-26 07:17] LABS: INR 1.03 (0.9-1.15); Partial Thromboplastin Time 24.2 SEC (24.5-34.5); Prothrombin Time 10.9 sec (9.3-11.8)
[2023-11-26 09:51] LABS: Erythrocyte Sedimentation Rate 14 mm/hr (0-20)
[2023-11-26] MEDS ORDERED: TAMSULOSIN HYDROCHLORIDE 0.4 MG CAP PO SCH (18:00)
[2023-11-26 20:41] LABS: Basophils # (auto) 0.1 10 ^3/uL (0-0.2); Eosinophils # (auto) 0.1 10 ^3/uL (0-0.8); Monocytes # (auto) 0.9 10 ^3/uL (0-1.3)
[2023-11-26 20:43] LABS: Basophils % (auto) 0.6 % (0.0-2.0); Eosinophils % (auto) 0.5 % (0.0-7.0); Hematocrit 19.3 % (41.0-53.0); Lymphocytes % (auto) 8.2 % (10.0-50.0); Mean Corpuscular Hemoglobin 30.9 pg (28.0-32.0); Mean Corpuscular Hgb Conc. 34.3 g/dL (32.0-36.0); Mean Corpuscular Volume 90.2 fL (80.0-100.0); Monocytes % (auto) 7.6 % (0.0-12.0); Neutrophils # (auto) 9.9 10 ^3/uL (1.6-8.6); Neutrophils % (auto) 83.1 % (37.0-80.0); Platelet Count (auto) 260 10^3/uL (140-450); Red Blood Cells 2.13 10^6/uL (4.5-5.90); White Blood Cell 11.9 10^3/uL (4.4-10.8)
[2023-11-26 21:00] LABS: Hemoglobin 6.6 g/dL (13.5-17.5)
[2023-11-26] MEDS: EPOETIN ALFA-EPBX 4,000 UNIT/ML VIAL SC ONE (21:45)
[2023-11-27] VITALS (17 sets, daily range): BP systolic 145–170; BP diastolic 51–99; PULSE 66–99; RESP 16–18; TEMP 97.9–98.6; O2SAT 97–100
[2023-11-27] MEDS: hydrALAZINE HCL 20 MG/ML VL IV PRN (01:25)
[2023-11-27] MEDS ORDERED: FUROSEMIDE 20 MG/2 ML VIAL IV ONE (04:00)
[2023-11-27] MEDS: amLODIPine BESYLATE 5 MG TAB PO ONE (04:46)
[2023-11-27 09:25] LABS: Basophils # (auto) 0.1 10 ^3/uL (0-0.2); Eosinophils # (auto) 0.1 10 ^3/uL (0-0.8); Eosinophils % (auto) 0.9 % (0.0-7.0); Hemoglobin 7.4 g/dL (13.5-17.5); Lymphocytes # (auto) 0.7 10 ^3/uL (0.4-5.4); Lymphocytes % (auto) 6.2 % (10.0-50.0); Monocytes # (auto) 0.9 10 ^3/uL (0-1.3); Neutrophils % (auto) 84.2 % (37.0-80.0)
[2023-11-27 09:26] LABS: Basophils % (auto) 0.5 % (0.0-2.0); Hematocrit 21.8 % (41.0-53.0); Mean Corpuscular Hgb Conc. 34.1 g/dL (32.0-36.0); Monocytes % (auto) 8.2 % (0.0-12.0); Neutrophils # (auto) 9.7 10 ^3/uL (1.6-8.6); Platelet Count (auto) 255 10^3/uL (140-450); Red Blood Cells 2.39 10^6/uL (4.5-5.90); Red Cell Distribution Width 14.5 % (11.8-14.3); White Blood Cell 11.5 10^3/uL (4.4-10.8)
[2023-11-27 09:38] LABS: Chloride 103 mmol/L (98-107); Sodium 137 mmol/L (136-145)
[2023-11-27 09:39] LABS: Anion Gap 11 (5-15); Calcium 8.7 mg/dL (8.7-10.4); Carbon Dioxide 23 mmol/L (20-31)
[2023-11-27 09:44] LABS: Glucose 96 mg/dL (74-106)
[2023-11-27 09:55] LABS: Potassium 5.7 mmol/L (3.5-5.1)
[2023-11-27 09:56] LABS: Blood Urea Nitrogen 118 mg/dL (9-23)
[2023-11-27] MEDS: IRON SUCROSE COMPLEX 100 ML IV SCH (17:57)
[2023-11-27 18:38] LABS: Basophils # (auto) 0 10 ^3/uL (0-0.2); Eosinophils # (auto) 0.1 10 ^3/uL (0-0.8); Eosinophils % (auto) 0.6 % (0.0-7.0); Hemoglobin 7.6 g/dL (13.5-17.5); Lymphocytes # (auto) 0.6 10 ^3/uL (0.4-5.4); Monocytes # (auto) 0.8 10 ^3/uL (0-1.3)
[2023-11-27 18:42] LABS: Basophils % (auto) 0.3 % (0.0-2.0); Hematocrit 21.6 % (41.0-53.0); Lymphocytes % (auto) 6.8 % (10.0-50.0); Mean Corpuscular Hemoglobin 31.5 pg (28.0-32.0); Mean Corpuscular Hgb Conc. 35.1 g/dL (32.0-36.0); Mean Corpuscular Volume 89.9 fL (80.0-100.0); Neutrophils # (auto) 7.7 10 ^3/uL (1.6-8.6); Neutrophils % (auto) 83.3 % (37.0-80.0); Platelet Count (auto) 258 10^3/uL (140-450); Red Cell Distribution Width 14.6 % (11.8-14.3); White Blood Cell 9.2 10^3/uL (4.4-10.8)
[2023-11-28] VITALS (15 sets, daily range): BP systolic 127–162; BP diastolic 50–95; PULSE 71–113; RESP 18–20; TEMP 97.2–98.5; O2SAT 80–100
[2023-11-28] MEDS: amLODIPine BESYLATE 5 MG TAB PO SCH (09:43)
[2023-11-28 10:33] LABS: Basophils # (auto) 0 10 ^3/uL (0-0.2); Basophils % (auto) 0.5 % (0.0-2.0); Eosinophils # (auto) 0 10 ^3/uL (0-0.8); Eosinophils % (auto) 0.7 % (0.0-7.0); Hematocrit 19.3 % (41.0-53.0); Lymphocytes # (auto) 0.4 10 ^3/uL (0.4-5.4); Lymphocytes % (auto) 5.4 % (10.0-50.0); Mean Corpuscular Hemoglobin 31.8 pg (28.0-32.0); Mean Corpuscular Hgb Conc. 34.2 g/dL (32.0-36.0); Monocytes # (auto) 0.6 10 ^3/uL (0-1.3); Monocytes % (auto) 9.1 % (0.0-12.0); Neutrophils # (auto) 5.5 10 ^3/uL (1.6-8.6); Neutrophils % (auto) 84.3 % (37.0-80.0); Platelet Count (auto) 239 10^3/uL (140-450); Red Blood Cells 2.08 10^6/uL (4.5-5.90); Red Cell Distribution Width 14.7 % (11.8-14.3); White Blood Cell 6.5 10^3/uL (4.4-10.8)
[2023-11-28 10:36] LABS: Hemoglobin 6.6 g/dL (13.5-17.5)
[2023-11-28 10:43] LABS: Chloride 103 mmol/L (98-107); Potassium 4.4 mmol/L (3.5-5.1); Sodium 142 mmol/L (136-145)
[2023-11-28 10:44] LABS: Anion Gap 7 (5-15); Calcium 8.8 mg/dL (8.7-10.4); Carbon Dioxide 32 mmol/L (20-31)
[2023-11-28 10:49] LABS: BUN/Creatinine Ratio 10.7 (10.0-20.0); Glucose 121 mg/dL (74-106)
[2023-11-28 11:04] LABS: Blood Urea Nitrogen 54 mg/dL (9-23)
[2023-11-28] MEDS: SODIUM FERR GLUC 62.5MG/5ML 110 ML IV SCH (20:29)
[2023-11-28 20:34] LABS: Hematocrit 27.9 % (41.0-53.0); Hemoglobin 9.5 g/dL (13.5-17.5)
[2023-11-29] VITALS (9 sets, daily range): BP systolic 134–164; BP diastolic 45–70; PULSE 62–78; RESP 16–18; TEMP 97.8–98.4; O2SAT 97–100
[2023-11-29 06:28] LABS: Basophils # (auto) 0.1 10 ^3/uL (0-0.2); Eosinophils # (auto) 0.1 10 ^3/uL (0-0.8); Hemoglobin 8.2 g/dL (13.5-17.5); White Blood Cell 6.5 10^3/uL (4.4-10.8)
[2023-11-29 06:32] LABS: Basophils % (auto) 1.1 % (0.0-2.0); Eosinophils % (auto) 1.9 % (0.0-7.0); Hematocrit 23.6 % (41.0-53.0); Lymphocytes # (auto) 0.5 10 ^3/uL (0.4-5.4); Lymphocytes % (auto) 8.1 % (10.0-50.0); Mean Corpuscular Hemoglobin 31.8 pg (28.0-32.0); Mean Corpuscular Hgb Conc. 34.7 g/dL (32.0-36.0); Mean Corpuscular Volume 91.7 fL (80.0-100.0); Monocytes # (auto) 0.8 10 ^3/uL (0-1.3); Monocytes % (auto) 11.8 % (0.0-12.0); Neutrophils % (auto) 77.1 % (37.0-80.0); Platelet Count (auto) 225 10^3/uL (140-450); Red Blood Cells 2.58 10^6/uL (4.5-5.90); Red Cell Distribution Width 15.7 % (11.8-14.3)
[2023-11-29 06:43] LABS: Calcium 8.5 mg/dL (8.7-10.4); Chloride 105 mmol/L (98-107); Potassium 4.5 mmol/L (3.5-5.1); Sodium 142 mmol/L (136-145)
[2023-11-29 06:44] LABS: Anion Gap 9 (5-15); Carbon Dioxide 28 mmol/L (20-31)
[2023-11-29 06:49] LABS: BUN/Creatinine Ratio 9.4 (10.0-20.0); Blood Urea Nitrogen 61 mg/dL (9-23); Glucose 90 mg/dL (74-106)
[2023-11-29 12:26] LABS: Magnesium 2.2 mg/dL (1.6-2.6)
[2023-11-29 12:27] LABS: Phosphorus 4.3 mg/dL (2.4-5.1)
[2023-11-29 13:30] LABS: Hematocrit 26.4 % (41.0-53.0); Hemoglobin 8.8 g/dL (13.5-17.5)
[2023-11-29] MEDS ORDERED: fentaNYL CITRATE 100 MCG/2 ML VL ONE (13:56)
[2023-11-29] MEDS ORDERED: ONDANSETRON HCL 4 MG/2 ML VIAL ONE (13:56)
[2023-11-29] MEDS ORDERED: MIDAZOLAM HCL 2MG/2ML 2ml VIAL (1mg/ml) ONE (13:56)
[2023-11-29] MEDS: EPINEPHrine HCL 1 MG/10 ML SYRG ONE (15:23)
[2023-11-29 18:45] LABS: Hematocrit 25.6 % (41.0-53.0); Hemoglobin 8.4 g/dL (13.5-17.5)
[2023-11-30] VITALS (11 sets, daily range): BP systolic 122–170; BP diastolic 52–79; PULSE 53–89; RESP 16–18; TEMP 98.1–98.6; O2SAT 97–100
[2023-11-30 05:29] LABS: Basophils # (auto) 0.1 10 ^3/uL (0-0.2); Eosinophils # (auto) 0.2 10 ^3/uL (0-0.8); Lymphocytes # (auto) 0.6 10 ^3/uL (0.4-5.4); Monocytes # (auto) 0.5 10 ^3/uL (0-1.3)
[2023-11-30 05:31] LABS: Basophils % (auto) 1.2 % (0.0-2.0); Chloride 106 mmol/L (98-107); Eosinophils % (auto) 2.8 % (0.0-7.0); Hematocrit 22.4 % (41.0-53.0); Hemoglobin 7.9 g/dL (13.5-17.5); Lymphocytes % (auto) 10.1 % (10.0-50.0); Mean Corpuscular Hemoglobin 32.9 pg (28.0-32.0); Monocytes % (auto) 8.8 % (0.0-12.0); Neutrophils # (auto) 4.3 10 ^3/uL (1.6-8.6); Neutrophils % (auto) 77.1 % (37.0-80.0); Nucleated Red Blood Cells % 0.1 %; Platelet Count (auto) 244 10^3/uL (140-450); Potassium 5.1 mmol/L (3.5-5.1); Red Blood Cells 2.39 10^6/uL (4.5-5.90); Red Cell Distribution Width 16.1 % (11.8-14.3); Sodium 141 mmol/L (136-145); White Blood Cell 5.6 10^3/uL (4.4-10.8)
[2023-11-30 05:32] LABS: Anion Gap 11 (5-15); Calcium 8.4 mg/dL (8.7-10.4); Carbon Dioxide 24 mmol/L (20-31)
[2023-11-30 05:37] LABS: Glucose 66 mg/dL (74-106)
[2023-11-30 05:58] LABS: Blood Urea Nitrogen 74 mg/dL (9-23)
[2023-11-30 12:10] LABS: Hematocrit 25.3 % (41.0-53.0)
[2023-11-30 12:12] LABS: Hemoglobin 8.4 g/dL (13.5-17.5)
[2023-11-30] MEDS ORDERED: TPN PER PHARMACY 0 ML IV SCH ×2 (12:30→12:45)
[2023-11-30 20:13] LABS: Hematocrit 27.1 % (41.0-53.0)
[2023-11-30] MEDS: EPOETIN ALFA-EPBX 10,000 UNIT/1ML VIAL SC ONE (21:19)
[2023-12-01 01:00] VITALS: BP 168/63; PULSE 63; RESP 18; TEMP 98.3; O2SAT 98
[2023-12-01 05:00] VITALS: BP 166/67; PULSE 63; RESP 18; TEMP 98.3; O2SAT 98
[2023-12-01 05:25] LABS: Basophils # (auto) 0.1 10 ^3/uL (0-0.2); Basophils % (auto) 1.7 % (0.0-2.0); Eosinophils # (auto) 0.2 10 ^3/uL (0-0.8); Hematocrit 25.2 % (41.0-53.0); Hemoglobin 8.6 g/dL (13.5-17.5); Lymphocytes # (auto) 0.6 10 ^3/uL (0.4-5.4); Lymphocytes % (auto) 11.2 % (10.0-50.0); Mean Corpuscular Hemoglobin 32.2 pg (28.0-32.0); Mean Corpuscular Hgb Conc. 34.1 g/dL (32.0-36.0); Mean Corpuscular Volume 94.5 fL (80.0-100.0); Monocytes # (auto) 0.5 10 ^3/uL (0-1.3); Monocytes % (auto) 9.8 % (0.0-12.0); Neutrophils % (auto) 74.3 % (37.0-80.0); Nucleated Red Blood Cells % 0.2 %; Platelet Count (auto) 291 10^3/uL (140-450); Red Blood Cells 2.67 10^6/uL (4.5-5.90); Red Cell Distribution Width 16.2 % (11.8-14.3); White Blood Cell 5.4 10^3/uL (4.4-10.8)
[2023-12-01 05:37] LABS: Albumin 3.6 g/dL (3.2-4.8); Alkaline Phosphatase 75 U/L (46-116); Anion Gap 12 (5-15); Aspartate Aminotransferase 13 U/L (13-40); BUN/Creatinine Ratio 5.9 (10.0-20.0); Bilirubin, Total 0.3 mg/dL (0.2-1.0); Calcium 8.7 mg/dL (8.7-10.4); Carbon Dioxide 25 mmol/L (20-31); Chloride 105 mmol/L (98-107); Glucose 74 mg/dL (74-106); Magnesium 2.3 mg/dL (1.6-2.6); Phosphorus 5.2 mg/dL (2.4-5.1); Potassium 4.3 mmol/L (3.5-5.1); Sodium 142 mmol/L (136-145); Total Protein 5.4 g/dL (5.7-8.2); Triglycerides 116 mg/dL (< 150)
[2023-12-01 05:57] LABS: Alanine Aminotransferase < 9 U/L (7-40); Blood Urea Nitrogen 32 mg/dL (9-23)
[2023-12-01 06:35] VITALS: BP 150/67
[2023-12-01] MEDS: OMNIPAQUE 12mg/ml 500ml ORAL SOLUTION PO ONE (07:22)
[2023-12-01] MEDS: SODIUM CHL 0.9% 1000 ML BAG XX ONE ×2 (07:34→07:35)
[2023-12-01] MEDS ORDERED: SUCR1SUS5 PO (07:51)
[2023-12-01] MEDS ORDERED: PANT40T PO (07:51)
[2023-12-01 08:00] VITALS: PULSE 73
[2023-12-01 09:03] VITALS: BP 149/81; PULSE 76; RESP 20; TEMP 98.3; O2SAT 97
[2023-12-01] MEDS: NIFEdipine ER 30 MG TAB PO SCH (09:33)
[2023-12-01] MEDS ORDERED: NIFEdipine ER 30 MG TAB PO SCH (10:00)
[2023-12-01] MEDS ORDERED: PROPOFOL 10 MG/ML 20 ML IV ONE (12:39)
[2023-12-01 13:02] VITALS: BP 134/59; PULSE 74; RESP 20; TEMP 98.7; O2SAT 96
== END 2023-12-01 12:40 | disposition home or self-care (01) | DRG 377 ==
LOC: EDUNIT# 16:40 → EDBD 16:40 → ER 16:47 → TELE 23:20 → TELE-CENTR 11-26 01:20
PROVIDERS: ADMIT Internal Medicine; ATTEND Emergency Medicine
PROC: 5A1D70Z Performance of Urinary Filtration, Intermittent, Less than 6 Hours Per Day (ICD-10-PCS; 2023-11-26)
PROC: 30233K1 Transfusion of Nonautologous Frozen Plasma into Peripheral Vein, Percutaneous Approach (ICD-10-PCS; principal; 2023-11-27)
PROC: 30233N1 Transfusion of Nonautologous Red Blood Cells into Peripheral Vein, Percutaneous Approach (ICD-10-PCS; 2023-11-28)
PROC: 0DB68ZX Excision of Stomach, Via Natural or Artificial Opening Endoscopic, Diagnostic (ICD-10-PCS; 2023-11-29)
PROC: 5A1D70Z Performance of Urinary Filtration, Intermittent, Less than 6 Hours Per Day (ICD-10-PCS; 2023-11-29)
PROC: 0W3P8ZZ Control Bleeding in Gastrointestinal Tract, Via Natural or Artificial Opening Endoscopic (ICD-10-PCS; 2023-11-29)
DX: K26.4 Chronic or unspecified duodenal ulcer with hemorrhage (principal); N18.6 End stage renal disease; I13.2 Hypertensive heart and chronic kidney disease with heart failure and with stage 5 chronic kidney disease, or end stage renal disease; D62 Acute posthemorrhagic anemia; I50.32 Chronic diastolic (congestive) heart failure; K29.71 Gastritis, unspecified, with bleeding; K29.81 Duodenitis with bleeding; D63.1 Anemia in chronic kidney disease; I35.0 Nonrheumatic aortic (valve) stenosis; E03.9 Hypothyroidism, unspecified; K31.811 Angiodysplasia of stomach and duodenum with bleeding; N40.0 Benign prostatic hyperplasia without lower urinary tract symptoms; Z86.73 Personal history of transient ischemic attack (TIA), and cerebral infarction without residual deficits; K44.9 Diaphragmatic hernia without obstruction or gangrene; I25.10 Atherosclerotic heart disease of native coronary artery without angina pectoris; D72.829 Elevated white blood cell count, unspecified; Z79.899 Other long term (current) drug therapy; Z99.2 Dependence on renal dialysis; Z95.5 Presence of coronary angioplasty implant and graft; Z83.3 Family history of diabetes mellitus; Z82.49 Family history of ischemic heart disease and other diseases of the circulatory system
CPT/HCPCS: 36415; 36430; 71045; 74176; 80048; 80053; 80076; 82270; 82306; 82607; 83036; 83735; 83970; 84100; 84443; 84478; 84484; 85014; 85018; 85025; 85048; 85246; 85610; 85652; 85730; 86141; 86850; 86900; 86901; 86920; 87045; 87340; 87427; 87493; 90935; 93005; 99291; G0378; J2250; J2405; J2470; J2704

== ENCOUNTER → 2024-04-05 | Outpatient (CLI) | payer MEDICARE, BC ==
[~2024-04-05] MED LIST changes: -CHOL500014 PO; -LACT10SO70 PO; +PANT40T PO; -PANT40TA2 PO; -RIVA2.5T PO; +SUCR1SUS5 PO; -TEMA15CA2 PO; -ZINC220C10 PO
== END | disposition home or self-care (01) ==
LOC: Rad HDHVI 08:04
PROVIDERS: ATTEND Internal Medicine Cardiovascular Disease
DX: I10 Essential (primary) hypertension (principal)
CPT/HCPCS: 93880

== ENCOUNTER → 2024-04-10 | Outpatient (CLI) | payer MEDICARE, BC ==
[~2024-04-10] VITALS: Ht 172.7 cm; Wt 61.2 kg
[~2024-04-10] MED LIST changes: +ADENOSINE 51 MG in GIVE UN-DILUTED 0 ML IV ONE; +ADENOSINE 90 MG/30 ML INJ IV ONE; +amLODIPine BESYLATE 5 MG TAB ONE
== END | disposition home or self-care (01) ==
LOC: Rad HDHVI 08:54
PROVIDERS: ATTEND Internal Medicine Cardiovascular Disease
DX: I44.0 Atrioventricular block, first degree (principal); I13.2 Hypertensive heart and chronic kidney disease with heart failure and with stage 5 chronic kidney disease, or end stage renal disease; N18.6 End stage renal disease; I50.33 Acute on chronic diastolic (congestive) heart failure; I35.0 Nonrheumatic aortic (valve) stenosis; I48.91 Unspecified atrial fibrillation; E78.00 Pure hypercholesterolemia, unspecified; Z95.810 Presence of automatic (implantable) cardiac defibrillator; Z99.2 Dependence on renal dialysis
CPT/HCPCS: 78452; 93005; 93017; A9500; J0153; 96374; 96375

== ENCOUNTER 2024-11-18 06:56 | Inpatient (IN) | payer MEDICARE, BC ==
[~2024-11-18] VITALS: Ht 172.7 cm; Wt 65.8 kg
[2024-11-18] VITALS (8 sets, daily range): BP systolic 196; BP diastolic 80; PULSE 78–93; RESP 16–23; TEMP 99; O2SAT 93–100
[~2024-11-18 06:56] MED LIST changes: -ADENOSINE 51 MG in GIVE UN-DILUTED 0 ML IV ONE; -ADENOSINE 90 MG/30 ML INJ IV ONE; -amLODIPine BESYLATE 5 MG TAB ONE
--- NOTE | 2024-11-18 06:59 | ED.PDOC ---
SOB-HPI HPI Comments 84-year-old male presents here with difficulty breathing that began around 2:00 a.m. this morning. Per medics when they found him he was lying supine they sat him up. He is found to be saturating 81% on room air. He has been placed on 15 L oxygen mask and he is feeling clinically better. They heard crackles in all lung crooks. He has not been recently. He denies any recent cough cold runny nose fever or chills. No recent history of CHF. He does have a history of end- stage renal disease and gets dialysis Wednesday and was supposed to get dialysis today. Patient currently states he just feels tired. Chief Complaint: SOB Time Seen by MD: 07:13 Primary Care Provider: unknown Reviewed notes: Medications, Allergies Information Source: Patient, Emergency Med Personnel Mode of Arrival: EMS Severity: Moderate Timing: Hours Duration: Since onset History of: Other (CKF, HTN ) Prehospital treatment: Oxygen (15L ), Other Associated Signs and Symptoms: None Radiation: No Radiation If cough with SOB: Non-Productive Past Medical History PAST MEDICAL HISTORY: CKF, CVA, HTN, TIA Surgical History: Denies all surgeries Family History Family History: Reviewed,noncontributory to illness Social History Smoker: Non-Smoker Alcohol: Denies ETOH Use Drugs: Denies Drug Use Lives In: Home Constitutional: denies: chills, diaphoresis, fatigue, fever, malaise, sweats, weakness, others EENTM: denies: blurred vision, double vision, ear bleeding, ear discharge, ear drainage, ear pain, ear ringing, eye pain, eye redness, hearing loss, mouth pain, mouth swelling, nasal discharge, nose bleeding, nose congestion, nose pain, photophobia, tearing, throat pain, throat swelling, voice changes, others Respiratory: reports: SOB at rest, shortness of breath, SOB with excertion; denies: cough, hemoptysis, orthopnea, stridor, wheezing, others Cardiovascular: denies: chest pain, dizzy spells, diaphoresis, Dyspnea on exertion, edema, irregular heart beat, left arm pain, lightheadedness, palpitations, PND, syncope, others Gastrointestinal: denies: abdomen distended, abdominal pain, blood streaked bowels, constipated, diarrhea, dysphagia, difficulty swallowing, hematemesis, melena, nausea, poor appetite, poor fluid intake, rectal bleeding, rectal pain, vomiting, others Genitourinary: denies: burning, dysuria, flank pain, frequency, hematuria, incontinence, penile discharge, penile sore, pain, testicle pain, testicle swelling, urgency, others Neurological: denies: dizziness, fainting, headache, left sided numbness, left sided weakness, numbness, paresthesia, pre-existing deficit, right sided numbness, right sided weakness, seizure, speech problems, tingling, tremors, weakness, others Musculoskeletal: denies: back pain, gout, joint pain, joint swelling, muscle pain, muscle stiffness, neck pain, others Integumetry: denies: bruises, change in color, change in hair/nails, dryness, laceration, lesions, lumps, rash, wounds, others Allergic/Immunocompromised: denies: Difficulty Healing, Frequent Infections, Hives, Itching, others Hematologic/Lymphatic: denies: anemia, blood clots, easy bleeding, easy bruising, swollen glands, others Endocrine: denies: excessive hunger, excessive sweating, excessive thirst, excessive urination, flushing, intolerance to cold, intolerance to heat, unexplained weight gain, unexplained weight loss, others Psychiatric: denies: anxiety, bipolar disorder, depression, hopeless, panic disorder, schizophrenia, sleepless, suicidal, others All Other Systems: Reviewed and Negative Physical Exam Exam Comments Wearing 15 L non-rebreather mask General Appearance: Moderate Distress, Thin HEENT: Normal ENT Inspection, Pharynx Normal, TMs Normal Neck: Full Range of Motion, Non-Tender, Normal, Normal Inspection Respiratory: Other (Crackles to bilateral lower bases) Cardiovascular: No Edema, No JVD, No Murmur, No Gallop, Normal Peripheral Pulses, Regular Rate/Rhythm Breast Exam: Deferred Gastrointestinal: No Organomegaly, Non Tender, Soft Genitalia: Deferred Pelvic: Deferred Rectal: Deferred Extremities: Other (No pitting edema bilateral lower extremities) Musculoskeletal : Apperance: Normal Neurologic: Alert, No Motor Deficits, Normal Affect, Normal Mood, No Sensory Deficits Cerebellar Function: Normal Reflexes: Normal Skin: Dry, Normal Color, Warm Lymphatic: No Adenopathy EKG EKG : Pulse Rate (adult): 87 Comments Rate of 87 sinus rhythm no significant ST changes Was a procedure done? Was a procedure done?: No Differential Dx Differential Diagnosis: Anxiety, Asthma, Bronchitis, CHF, COPD, Panic Attack, Pneumonia, Pulmonary Embolism, Respiratory Distress, Sinusitis, Allergic Rhinitis, Pharyngitis X-Ray, Labs, Meds, VS Vital Signs Date Time Temp Pulse Resp B/P (MAP) Pulse Ox O2 Delivery O2 Flow Rate FiO2 11/18/24 07:54 87 11/18/24 07:37 99.0 84 21 201/84 (123) 99 99.0 11/18/24 06:56 97.8 90 16 202/74 99 97.8 Lab Test 11/18/24 08:13 Range/Units White Blood Count 12.9 H 4.4-10.8 10^3/uL Red Blood Count 4.34 L 4.5-5.90 10^6/uL Hemoglobin 12.6 L 13.5-17.5 g/dL Hematocrit 38.9 L 41.0-53.0 % Mean Corpuscular Volume 89.7 80.0-100.0 fL Mean Corpuscular Hemoglobin 29.0 28.0-32.0 pg Mean Corpuscular Hemoglobin Concent 32.3 32.0-36.0 g/dL Red Cell Distribution Width 15.2 H 11.8-14.3 % Platelet Count 317 140-450 10^3/uL Mean Platelet Volume 8.4 6.9-10.8 fL Neutrophils (%) (Auto) 88.2 H 37.0-80.0 % Lymphocytes (%) (Auto) 2.6 L 10.0-50.0 % Monocytes (%) (Auto) 8.1 0.0-12.0 % Eosinophils (%) (Auto) 0.3 0.0-7.0 % Basophils (%) (Auto) 0.8 0.0-2.0 % Neutrophils # (Auto) 11.3 H 1.6-8.6 10 ^3/uL Lymphocytes # (Auto) 0.3 L 0.4-5.4 10 ^3/uL Monocytes # (Auto) 1.0 0-1.3 10 ^3/uL Eosinophils # (Auto) 0 0-0.8 10 ^3/uL Basophils # (Auto) 0.1 0-0.2 10 ^3/uL Nucleated Red Blood Cells 0.0 % Sodium Level 141 136-145 mmol/L Potassium Level 6.0 *H 3.5-5.1 mmol/L Chloride Level 102 98-107 mmol/L Carbon Dioxide Level 25 20-31 mmol/L Anion Gap 14 5-15 Blood Urea Nitrogen 43 H 9-23 mg/dL Creatinine 7.14 H 0.700-1.30 mg/dL Glomerular Filtration Rate Calc 7 >90 mL/min BUN/Creatinine Ratio 6.0 L 10.0-20.0 Serum Glucose 103 74-106 mg/dL Calcium Level 8.8 8.7-10.4 mg/dL B-Type Natriuretic Peptide 608.93 0-100 pg/mL [place] [id number] Ph: [phone] DIAGNOSTIC IMAGING Diagnostic Imaging Report : [id number] Signed PATIENT: SHELL WASHINGTON ACCT: [id number] UNIT: [id number] : 1940 LOC: ER ROOM / BED: / AGE / SEX: 84 / M ADM STATUS: REG ER SERVICE 0710 ORDERING PHYSICIAN: GORGE BOURNE MD PROCEDURE(s): CXRP - CHEST PORTABLE REASON: Rule out pneumonia, CHF exacerbation ORDER NUMBER(s): [id number], ACCESSION NUMBER(s): [id number] CHEST RADIOGRAPH Indication: Rule out pneumonia, CHF exacerbation Technique: Single frontal view of the chest was obtained COMPARISON: XY CHEST XRAY 1 VIEW on DOS: 11/27/23, XY CHEST PORTABLE on DOS: 11/25/23, XY CHEST PORTABLE on DOS: 12/15/22, XY CHEST XRAY 1 VIEW on DOS: 11/19/22, XY CHEST XRAY 1 VIEW on DOS: 11/18/22 FINDINGS: Lines and Tubes: None Lungs: Congestion Pleura: No effusion. No pneumothorax. Cardiomediastinal contours: Unremarkable Bones: Unremarkable IMPRESSION: Increased interstital prominence. This may represent pulmonary vascular congestion and/or viral pneumonia. Clinical correlation advised. 84-year-old male presents here with difficulty breathing. He was found to be satting 81% on room air by medics. Currently he is on 15 L non-rebreather mask and feels comfortable and is saturating 98%. He has crackles to bilateral lung bases. He has a history of end-stage renal disease and gets dialysis Wednesday and currently due for dialysis today. At this time he does not have a history of CHF however this could be new onset. Additionally pneumonia, fluid overload are all possibilities also. He states he has not been sick recently with no recent cough cold runny nose fevers. In the meantime I have ordered a CBC BMP BNP chest x-ray, troponin for evaluation. CBC has returned with a leukocytosis of 12.9. BMP demonstrates a potassium of 6 and elevated creatinine consistent with end-stage renal disease. BNP is elevated slightly at 608. Chest x-ray which demonstrates increased interstitial prominence. Which may represent pulmonary vascular congestions and/or viral pneumonia. At this time given his shortness of breath leukocytosis of 12.9 and pulmonary vascular congestion, I have started him on antibiotics for possible pneumonia. I have started him on azithromycin and rub often IV. Additionally I have treated his hyperkalemia with Lokelma and insulin glucose and Lasix IV. EKG does not demonstrate any peaked T-waves. At this time hospitalist team has been contacted for admission. Images Reviewed?: Images reviewed and evaluated by me Time of 1ST Reevaluation: 07:39 Reevaluation 1ST: Unchanged Patient Education/Counseling: Diagnosis, Treatment Family Education/Counseling: No Family Present SEPSIS Sepsis Screen Physician Orders Oxygen (11/18/24 07:10) Vat Tender (11/18/24 07:10) Chest Portable (11/18/24 07:10) Ceftriaxone 1gm/50ml (Rocephin) (11/18/24 09:00) Azithromycin 500mg/ 250ml (Zithromax 50 (11/18/24 09:00) Blood Culture (11/18/24 08:47) Vital Signs Date Time Temp Pulse Resp B/P (MAP) Pulse Ox O2 Delivery O2 Flow Rate FiO2 11/18/24 07:54 87 11/18/24 07:37 99.0 84 21 201/84 (123) 99 99.0 11/18/24 06:56 97.8 90 16 202/74 99 97.8 Laboratory Tests Test 11/18/24 08:13 White Blood Count 12.9 10^3/uL (4.4-10.8) H Departure 1 Departure Time of Disposition: 09:22 Impression: Primary Impression: Pneumonia Qualified Codes: J18.9 - Pneumonia, unspecified organism Additional Impressions: Hypoxia Hyperkalemia Disposition: ADMITTED INPATIENT Condition: Fair Critical Care Note Critical Care Time?: Yes (45 min-critical care time only) Critical care comment: Asked to see the patient immediately by nursing staff due to high oxygen use. Continued patient on 15 L non-rebreather at this time. Patient also with hyperkalemia of 6, immediate treatment needed. Patient treated immediately with Lasix, Lokelma and insulin glucose. Patient requiring multiple re-evaluations for running status and repeat BMP is for potassium eval Stability Stability form required: No Heart Score Heart Score: Heart Score Response (Comments) Value History Slightly Suspicious 0 EKG Normal 0 Age >65 2 Risk Factors 1 or 2 risk factors 1 Troponin 1-2 x's Normal limit 1 Total 4 I personally scribed for GORGE BOURNE MD ([email or web address]) on 11/18/24 at 06:59. Electronically submitted by Margo Ochoa ([email or web address]). I personally scribed for GORGE BOURNE MD ([email or web address]) on 11/18/24 at 07:54. Electronically submitted by Margo Ochoa ([email or web address]). I personally scribed for GORGE BOURNE MD ([email or web address]) on 11/18/24 at 08:34. Electronically submitted by Margo Ochoa ([email or web address]). I personally scribed for GORGE BOURNE MD ([email or web address]) on 11/18/24 at 08:41. Electronically submitted by Margo Ochoa ([email or web address]). GORGE BOURNE MD Nov 18, 2024 06:59
--- NOTE | 2024-11-18 08:12 | DVH ---
CHEST RADIOGRAPH Indication: Rule out pneumonia, CHF exacerbation Technique: Single frontal view of the chest was obtained COMPARISON: XY CHEST XRAY 1 VIEW on DOS: 11/27/23, XY CHEST PORTABLE on DOS: 11/25/23, XY CHEST LUCAS BLE on DOS: 12/15/22, XY CHEST XRAY 1 VIEW on DOS: 11/19/22, XY CHEST XRAY 1 VIEW on DOS: 11/18/22 FINDINGS: Lines and Tubes: None Lungs: Congestion Pleura: No effusion. No pneumothorax. Cardiomediastinal contours: Unremarkable Bones: Unremarkable IMPRESSION: Increased interstital prominence. This may represent pulmonary vascular congestion and/or viral pneum onia. Clinical correlation advised.
[2024-11-18 08:43] LABS: Hematocrit 38.9 % (41.0-53.0); Hemoglobin 12.6 g/dL (13.5-17.5); Mean Corpuscular Hemoglobin 29.0 pg (28.0-32.0); Mean Corpuscular Volume 89.7 fL (80.0-100.0); Nucleated Red Blood Cells % 0.0 %
[2024-11-18 08:53] LABS: Chloride 102 mmol/L (98-107); Sodium 141 mmol/L (136-145)
[2024-11-18 08:54] LABS: Anion Gap 14 (5-15); Calcium 8.8 mg/dL (8.7-10.4); Carbon Dioxide 25 mmol/L (20-31)
[2024-11-18 08:59] LABS: BUN/Creatinine Ratio 6.0 (10.0-20.0); Glucose 103 mg/dL (74-106)
[2024-11-18 09:00] LABS: Blood Urea Nitrogen 43 mg/dL (9-23)
[2024-11-18 09:01] LABS: Potassium 6.0 mmol/L (3.5-5.1)
[2024-11-18] MEDS: DEXTROSE (50%) 50ML SYRG IV ONE (09:15)
[2024-11-18] MEDS: FUROSEMIDE 40 MG/4 ML VIAL IV ONE (09:36)
[2024-11-18] MEDS: SODIUM ZIRCONIUM CYCL 10 GM PAK PO ONE (09:39)
[2024-11-18] MEDS: AZITHROMYCIN 500MG/250ML 250 ML IV ONE (09:45)
--- NOTE | 2024-11-18 09:46 | ECG ---
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
[2024-11-18] MEDS: InsuLIN REG 1unit/0.01ml Soln (100units/ml) IV ONE (09:51)
--- NOTE | 2024-11-18 10:00 | DVHHP2 ---
History of Present Illness Reason for Visit: SOB History of Present Illness Max Escobar is an 84-year-old male with past medical history of GI bleed, severe aortic stenosis, CAD status post PTCA, CHF, ESRD on HD (//), anemia, hypothyroidism, hypertension, and BPH who presents to the ED with shortness of breath that began at 2:00 a.m. today. Per EMS reports they found him lying down then set him up with saturations 81% on room air, he was then placed on 15 L non-rebreather. Upon examination patient on a simple mask. Patient's family at the bedside, [place] son, Hedy Lester daughter, and Rodolfo son-in-law. They report that he has a POLST and we will present that. Patient also reports that he has been compliant with his medications lives at home alone. He also reports that he does not use any DMEs. Family reports that he recently had pneumonia. They also reported that today is his day to have dialysis. They reported that the last time he was admitted here he missed 3 days of HD. Daughter also reports that he has been feeling fatigued for the last 3 weeks. Patient denies any recent trauma or injury, recent sick contacts, recent travels, recent ingestion of spoiled food, chest pain, fever, chills, lighth eadedness, dizziness, abdominal pain, nausea vomiting, diarrhea, or urinary symptoms. Discussed with patient regarding code status and patient states that he does not know, as far as life-saving measures. Informed him that it would be full code until there is a POLST that states otherwise or if he decides to change his code status. Cardiovascular: CAD, CHF, HTN Heme/Onc: Anemia NOS Renal/: Chronic renal failure, Benign prostatic enlarg. Endocrine: Hypothyroidism Past Medical History Severe aortic stenosis Past Surgical History: Other (Status post PTCA) Family History: Other (Dad with a an aneurysm . Mom with COPD with a smoker .) Smoke: No ALCOHOL: none Drugs: None Lives: Alone Domestic Violence: Neg Review of Systems Respiratory: Shortness of breath Allergies: Coded Allergies: NO KNOWN ALLERGIES (Unverified , 12/06/19) Exam Vital Signs Vital Signs Date Time Temp Pulse Resp B/P (MAP) Pulse Ox O2 Delivery O2 Flow Rate FiO2 11/18/24 09:36 196/80 11/18/24 07:54 87 11/18/24 07:37 99.0 21 99 99.0 General Appearance: Alert, Oriented X3, Cooperative, mild distress HEENT: Atraumatic, PERRLA, EOMI Respiratory: Normal air movement Cardiovascular: Normal S1, Normal S2 Abdominal: Normal bowel sounds, Soft Extremities: No clubbing, No cyanosis, No edema Skin: No significant lesion Neuro: Normal speech, Normal tone, Sensation intact Psych/Mental Status: Mental status NL, Mood NL Labs/Xrays Labs Test 11/18/24 08:13 Range/Units White Blood Count 12.9 H 4.4-10.8 10^3/uL Red Blood Count 4.34 L 4.5-5.90 10^6/uL Hemoglobin 12.6 L 13.5-17.5 g/dL Hematocrit 38.9 L 41.0-53.0 % Mean Corpuscular Volume 89.7 80.0-100.0 fL Mean Corpuscular Hemoglobin 29.0 28.0-32.0 pg Mean Corpuscular Hemoglobin Concent 32.3 32.0-36.0 g/dL Red Cell Distribution Width 15.2 H 11.8-14.3 % Platelet Count 317 140-450 10^3/uL Mean Platelet Volume 8.4 6.9-10.8 fL Neutrophils (%) (Auto) 88.2 H 37.0-80.0 % Lymphocytes (%) (Auto) 2.6 L 10.0-50.0 % Monocytes (%) (Auto) 8.1 0.0-12.0 % Eosinophils (%) (Auto) 0.3 0.0-7.0 % Basophils (%) (Auto) 0.8 0.0-2.0 % Neutrophils # (Auto) 11.3 H 1.6-8.6 10 ^3/uL Lymphocytes # (Auto) 0.3 L 0.4-5.4 10 ^3/uL Monocytes # (Auto) 1.0 0-1.3 10 ^3/uL Eosinophils # (Auto) 0 0-0.8 10 ^3/uL Basophils # (Auto) 0.1 0-0.2 10 ^3/uL Nucleated Red Blood Cells 0.0 % Sodium Level 141 136-145 mmol/L Potassium Level 6.0 *H 3.5-5.1 mmol/L Chloride Level 102 98-107 mmol/L Carbon Dioxide Level 25 20-31 mmol/L Anion Gap 14 5-15 Blood Urea Nitrogen 43 H 9-23 mg/dL Creatinine 7.14 H 0.700-1.30 mg/dL Glomerular Filtration Rate Calc 7 >90 mL/min BUN/Creatinine Ratio 6.0 L 10.0-20.0 Serum Glucose 103 74-106 mg/dL Calcium Level 8.8 8.7-10.4 mg/dL B-Type Natriuretic Peptide 608.93 0-100 pg/mL SEPSIS Sepsis Screen Date sepsis recognized/suspect: Nov 18, 2024 Time Sepsis recognized/suspect: 655 Recent Procedure: No On Antibiotic Therapy: No Respiratory Rate >20: No Heart Rate >90: No Temp<36 C (96.8 F) or >38.3 C: No SBP <90 or MAP <65 mmHG: No New Acute Mental Status Change: No Is the patient on CPAP, BIPAP,: No Physician Orders Oxygen (11/18/24 07:10) Baseboard Heating Installer (11/18/24 07:10) Chest Portable (11/18/24 07:10) Azithromycin 500mg/ 250ml (Zithromax 50 (11/18/24 09:00) Blood Culture (11/18/24 08:47) Troponin-I Hs (11/18/24 09:24) Troponin-I Hs (11/18/24 10:24) Troponin-I Hs (11/18/24 12:24) Vital Signs Date Time Temp Pulse Resp B/P (MAP) Pulse Ox O2 Delivery O2 Flow Rate FiO2 11/18/24 09:36 196/80 11/18/24 07:54 87 11/18/24 07:37 99.0 84 21 201/84 (123) 99 99.0 11/18/24 07:02 87 11/18/24 06:56 97.8 90 16 202/74 99 97.8 Laboratory Tests Test 11/18/24 08:13 White Blood Count 12.9 10^3/uL (4.4-10.8) H Medications Medications Dose Ordered Sig/Cristin Route Start Time Stop Time Status Last Admin Dose Admin Furosemide 40 mg ONCE ONCE IV 11/18/24 09:00 11/18/24 09:01 DC 11/18/24 09:36 40 MG Zirconium Oxide 10 gm ONCE ONCE PO 11/18/24 09:15 11/18/24 09:17 DC 11/18/24 09:39 10 GM Assessment/Plan Assessment/Plan Assessment Acute hypoxic respiratory failure on mechanical support Leukocytosis likely due to pneumonia Hypertensive urgency Hyperkalemia Acute on chronic CHF exacerbation ESRD on HD (T//) Hypertensive urgency History of anemia History of severe aortic stenosis History of CAD status post PTCA in 2019 History of hypothyroidism History of hypertension History of BPH History of GI bleed Plan Admit to [facility] Nicardipine drip BiPAP now on supplemental oxygen Antihypertensives Potassium lowering agents Hyperkalemia protocol IV antibiotics-Ceftriaxone + azithromycin Diuretics EKG Troponin Blood culture Chest x-ray BNP Diurese Duo nebs ABG Strict I&Os Daily weight Antihypertensives Diet Home medications reconciled DVT prophylaxis-SCDs PUD prophylaxis-PPIs Discussed plan of care with patient and nurse Nephro consult [id number] Preventive counseling healthy eating habits, physical activity, and regular checkups Plan discussed with: Patient Date of Service: Nov 18, 2024 Billing Provider: SHARAD PAEZ Common Visit Codes: [id number] INP/OBS CARE (HIGH) Secondary Visit Codes: [id number] COUNSELING IND SHARAD PAEZ Nov 18, 2024 10:00
[2024-11-18 10:21] LABS: Base Excess 0.8 mmol/L (-2.0-3.0)
[2024-11-18] MEDS: PANTOPRAZOLE 40 MG TAB PO SCH (11:26)
[2024-11-18] MEDS: LEVOTHYROXINE SODIUM 50 MCG TAB PO SCH (11:26)
[2024-11-18] MEDS: ALBUTEROL SULF 2.5 MG/0.5ML(0.5%) NEB SOLN NEB ONE (11:36)
[2024-11-18] MEDS: IPRATROPIUM BROM 0.5 MG/2.5ML INH SOL NEB ONE (11:36)
[2024-11-18] MEDS: CALCIUM ACETATE 667 MG CAP PO SCH (12:00)
[2024-11-18] MEDS: IPRATROPIUM BROM 0.5 MG/2.5ML INH SOL NEB SCH (13:31)
[2024-11-18] MEDS: ALBUTEROL SULF 2.5 MG/0.5ML(0.5%) NEB SOLN NEB SCH (13:31)
[2024-11-18] MEDS: hydrALAZINE HCL 20 MG/ML VL IV PRN (14:04)
[2024-11-18 17:03] LABS: Urine Protein, UAD 2+ (Negative)
[2024-11-18 17:13] LABS: Amphetamine Screen, Urine Neg (NEGATIVE); Barbiturate Scree,Urine Neg (NEGATIVE); Benzodiazephine Screen, Urine Neg (NEGATIVE); Cannabinoid Screen, Urine Neg (NEGATIVE); Cocaine Screen, Urine Neg (NEGATIVE); Opiate Scree,Urine Neg (NEGATIVE); Phencyclidine Screen, Urine Neg (NEGATIVE)
--- NOTE | 2024-11-18 18:52 | DVHSR ---
APPROVED REPORT EXAM: Two-dimensional and M-mode echocardiogram with Doppler and color Doppler. Blood Pressure: 184/97 mmHg INDICATION CHF RISK FACTORS Height: 5'8", Weight: 138 DIMENSIONS LVDd4.9 (3.8-5.7cm)LA (2D)4.4 (1.9-4.0cm)Aortic Root3.5 (2.0-3.7cm) LVDs3.6 (2.5-4.0cm)LA (MM) (1.9-4.0cm)Aortic Cusp Exc0.5 (1.5-2.0cm) EF (%) 55.0 (55-70%)Rt. Atrium4.8 (1.9-4.0cm)Asc. Aorta cm IVSd1.3 (0.7-1.1cm)RV (D)4.3 (1.8-2.4cm) PWd1.2 (0.7-1.1cm) Mitral Valve MitralMitral Stenosis E wave1.82m/sMV Mean GR.7mmHg A wave1.32m/sMV Peak GR.15mmHg E/A ratio1.42D MVAcm2 DECEL [id number] 1/2 [id number] IVRTmsDop MVA3.00cm2 Aortic Valve Aortic ValveAortic Stenosis V11.03m/Ene Mean GR.33mmHg V23.83m/Ene Peak GR.59mmHg LVOT Diameter2.0 (1.8-2.4cm)Doppler AVA0.84cm2 AI P 1/2 Cjmu540.09ms Pulmonic Valve V21.52m/s Tricuspid Valve TR Velocity3.24m/s [id number] Other Information Technically limited study due to body habitus, patient lying flat. Conclusion MODERATE DEGREE LVH AND MODERATE DEGREE LV DIASTOLIC DYSFUNCTION LV EF IS 65% MODERATELY DILATED LA AND RV CRITICAL AORTIC STENOSIS AORTIC VALVE AREA IS ONLY 0.84 CM SQUARE PEAK GRADIENT ACROSS AORTIC VALVE IS 59 MM OF HG AND MEAN GADIENT IS 33 MM OF HG MODERATE DEGREE AORTIC REGURGITATION NO EFFUSION
[2024-11-18] MEDS: SUCRALFATE 1 GM/10 ML ORAL SUSP PO SCH (19:10)
[2024-11-18] MEDS: TAMSULOSIN HYDROCHLORIDE 0.4 MG CAP PO SCH (19:11)
[2024-11-19] VITALS (13 sets, daily range): PULSE 82–125; RESP 14–24; O2SAT 91–97
[2024-11-19] MEDS: LABETALOL HCL 20 MG/4 ML VL IV PRN (03:02)
[2024-11-19] MEDS: ACETAMINOPHEN 325 MG TAB PO PRN (04:27)
--- NOTE | 2024-11-19 09:56 | DVHINCON2 ---
Date of service: Nov 19, 2024 Referring Physician Behzad Soto nurse practitioner Reason for Consultation End-stage renal disease to manage hemodialysis History of Present Illness Patient is 84-year-old male well known to me from the dialysis clinic OS past medical history of end-stage renal disease on hemodialysis every Wednesday and Wednesday, CVA, HTN, and TIA's who was admitted for shortness of breath and cough. On admission Nephrology is consulted to manage his hemodialysis Past Medical History End-stage renal disease on hemodialysis, CVA, HTN, TIA Past Surgical History AV fistula Allergies: Coded Allergies: NO KNOWN ALLERGIES (Unverified , 12/06/19) Home Meds Active Scripts Sucralfate (Carafate) 1 Gm/10 Ml Patricia, 1 GM PO BID for 30 Days, #1 ML Prov:AMY DEE RESIDENT 12/01/23 Pantoprazole Sodium Sesquihydr (Pantoprazole Sodium) 40 Mg Tab, 40 MG PO BID for 30 Days, #60 TAB Prov:AMY DEE RESIDENT 12/01/23 Reported Medications Amlodipine Besylate (Amlodipine Besylate) 10 Mg Tab, 1 TAB PO BID for HYPERTENSION 12/06/19 Calcium Acetate (Phosphate Bin (Calcium Acetate) 667 Mg Cap, 2 TAB PO TIDWM for RENAL SUPPLEMENT 12/06/19 Levothyroxine Sodium (Levothyroxine Sodium) 150 Mcg Tab, 150 MCG PO QAM for HYPOTHYROIDISM 03/24/18 Tamsulosin Hcl (Tamsulosin Hcl) 0.4 Mg Cap, 0.4 MG PO QPM for ENLARGED PROSTATE 09/07/17 Current Medications Current Medications Medications (Trade) Dose Ordered Sig/Cristin Route PRN Reason Start Time Stop Time Status Last Admin Ceftriaxone Sodium 50 ml @ 100 mls/hr DAILY@09 IV 11/19/24 09:00 11/19/24 09:11 Azithromycin 250 ml @ 125 mls/hr DAILY IV 11/19/24 10:00 Calcium Acetate (Phoslo Capsule) 1,334 mg TIDWM PO 11/18/24 12:00 11/19/24 08:19 Pantoprazole Sodium (Protonix Tablet) 40 mg BID PO 11/18/24 10:00 11/18/24 22:29 Sucralfate (Carafate Susp) 1 gm BIDAC PO 11/18/24 17:00 11/19/24 06:54 Tamsulosin HCl (Flomax) 0.4 mg QPM PO 11/18/24 18:00 11/18/24 19:11 Amlodipine Besylate (Norvasc Tablet) 10 mg BID PO 11/18/24 10:43 11/18/24 22:29 Levothyroxine Sodium (Synthroid Tablet) 150 mcg QAM@0600 PO 11/18/24 10:44 11/19/24 06:26 Furosemide (Lasix Injection) 40 mg DAILY IV 11/19/24 10:00 Albuterol (Ventolin Medneb) 2.5 mg Q4HWA [facility] 11/18/24 14:00 11/19/24 04:58 Ipratropium [place] (Atrovent Medneb) 0.5 mg Q4HWA [facility] 11/18/24 14:00 11/19/24 04:58 Hydralazine HCl (Apresoline Injection) 10 mg Q6HP PRN IV SBP>150 11/18/24 12:00 11/18/24 14:04 Nicardipine/ Sodium Chloride 200 ml @ 50 mls/hr Q4H IV 11/18/24 14:45 11/18/24 23:34 DC 11/18/24 22:40 Nicardipine/ Sodium Chloride 200 ml @ 50 mls/hr Q4H IV 11/18/24 14:45 11/18/24 14:53 DC Labetalol HCl (Labetalol HCl) 10 mg Q2HPRN PRN IV SBP>150 11/18/24 23:30 11/19/24 06:56 Acetaminophen (Tylenol Tablet) 500 mg Q6HP PRN PO MILD PAIN (1-3 PAIN SCALE) 11/19/24 04:00 11/19/24 04:27 Family History: Diabetes mellitus G8 MOTHER G8 FATHER Hypertension G8 MOTHER G8 FATHER Review of Systems All 12 item review of systems reviewed with the patient nonsignificant except what is mentioned in the history of present illness H&P Exam Vital Signs/I&O Vital Sign Date Time Temp Pulse Resp B/P (MAP) Pulse Ox O2 Delivery O2 Flow Rate FiO2 11/19/24 08:00 98.2 74 12 156/65 (95) 94 98.2 11/19/24 07:48 Oxymizer 6 N/A Intake and Output 11/18/24 11/19/24 19:00 07:00 Output Total 50 ml Balance -50 ml Output Urine Total 50 ml Physical Exam Patient examined on hemodialysis, blood pressure stable Moderate respiratory distress O2 nasal Oxymizer Lungs bibasilar crackles Cardiac exam regular rate and rhythm GI soft nontender was normal Extremities no clubbing cyanosis or edema Neuro patient is awake and alert Labs/Diagnostic Data Labs/Diagnostic Data Laboratory Tests Test 11/18/24 16:10 11/18/24 11:37 11/18/24 10:16 11/18/24 09:35 Range/Units Urine Color Light-yellow Yellow Urine Clarity Clear Clear Urine pH 8.5 5.0-9.0 Urine Specific [place] 1.010 1.001-1.035 Urine Protein 2+ H Negative Urine Ketones Negative Negative Urine Blood 2+ H Negative /uL Urine Nitrite Negative Negative Urine Bilirubin Negative Negative Urine Urobilinogen Normal Negative mg/dL Urine Leukocyte Esterase Negative Negative /uL Urine RBC 89 0 - 3 /hpf Urine Microscopic WBC 2 0-3 /HPF Urine Squamous Epithelial Cells Few <5 /hpf Urine Bacteria None seen None Seen /hpf Urine Glucose 1+ H Normal mg/dL Urine Opiates Screen Neg NEGATIVE Urine Fentanyl Screen Neg NEGATIVE Urine Barbiturates Screen Neg NEGATIVE Urine Phencyclidine Screen Neg NEGATIVE Urine Amphetamines Screen Neg NEGATIVE Urine Benzodiazepines Screen Neg NEGATIVE Urine Cocaine Screen Neg NEGATIVE Urine Cannabinoids Screen Neg NEGATIVE Troponin I High Sensitivity 52 42 </=54 ng/L Blood Gas Specimen Type Arterial Blood Gas Sample Site Right radial Blood Gas Patient Temperature 37.0 Arterial Blood Date Drawn [id number] Arterial Blood pH 7.438 7.350-7.450 Arterial Blood Partial Pressure CO2 37.5 35.0-48.0 mmHg Arterial Blood Partial Pressure O2 61.0 L 83.0-108.0 mmHg Arterial Blood HCO3 24.8 21.0-28.0 mmol/L Arterial Blood Oxygen Saturation 90.4 L 94.0-98.0 % Arterial Blood Base Excess 0.8 -2.0-3.0 mmol/L Arterial Blood Oxyhemoglobin 89.3 L 94.0-98.0 % Arterial Blood Carboxyhemoglobin 1.0 0.5-1.5 % Arterial Blood Methemoglobin 0.2 0.0-1.5 % Artem Test Yes Blood Gas Total Hemoglobin 12.70 L 13.5-17.5 g/dL Blood Gas Liter Flow 4.00 Blood Gas Modality Nasal cannula FiO2 % 36.0 Thyroid Stimulating Hormone (TSH) 2.02 0.55-4.78 uIU/mL Test 11/18/24 08:13 Range/Units White Blood Count 12.9 H 4.4-10.8 10^3/uL Red Blood Count 4.34 L 4.5-5.90 10^6/uL Hemoglobin 12.6 L 13.5-17.5 g/dL Hematocrit 38.9 L 41.0-53.0 % Mean Corpuscular Volume 89.7 80.0-100.0 fL Mean Corpuscular Hemoglobin 29.0 28.0-32.0 pg Mean Corpuscular Hemoglobin Concent 32.3 32.0-36.0 g/dL Red Cell Distribution Width 15.2 H 11.8-14.3 % Platelet Count 317 140-450 10^3/uL Mean Platelet Volume 8.4 6.9-10.8 fL Neutrophils (%) (Auto) 88.2 H 37.0-80.0 % Lymphocytes (%) (Auto) 2.6 L 10.0-50.0 % Monocytes (%) (Auto) 8.1 0.0-12.0 % Eosinophils (%) (Auto) 0.3 0.0-7.0 % Basophils (%) (Auto) 0.8 0.0-2.0 % Neutrophils # (Auto) 11.3 H 1.6-8.6 10 ^3/uL Lymphocytes # (Auto) 0.3 L 0.4-5.4 10 ^3/uL Monocytes # (Auto) 1.0 0-1.3 10 ^3/uL Eosinophils # (Auto) 0 0-0.8 10 ^3/uL Basophils # (Auto) 0.1 0-0.2 10 ^3/uL Nucleated Red Blood Cells 0.0 % Sodium Level 141 136-145 mmol/L Potassium Level 6.0 *H 3.5-5.1 mmol/L Chloride Level 102 98-107 mmol/L Carbon Dioxide Level 25 20-31 mmol/L Anion Gap 14 5-15 Blood Urea Nitrogen 43 H 9-23 mg/dL Creatinine 7.14 H 0.700-1.30 mg/dL Glomerular Filtration Rate Calc 7 >90 mL/min BUN/Creatinine Ratio 6.0 L 10.0-20.0 Serum Glucose 103 74-106 mg/dL Calcium Level 8.8 8.7-10.4 mg/dL Troponin I High Sensitivity 32 </=54 ng/L B-Type Natriuretic Peptide 608.93 0-100 pg/mL Assessment End-stage renal disease on hemodialysis Acute on chronic diastolic Congestive heart failure Acute on chronic respiratory failure Possible pneumonia Hyperkalemia Hypertensive urgency Anemia of chronic kidney disease, well compensated Recommendations Continue with UF 3 L as tolerated Resume home medication Blood pressure control Renal diet IV antibiotics We will continue to follow with you Patient seen and examined by myself in the ER. I discussed my plan of care with the patient and primary nurse at the bedside I would like to thank Evangelina for the consult, will follow Total care time 35 minutes Plan discussed with: Patient KIM LLOYD MD Nov 19, 2024 09:56
[2024-11-19] MEDS: AZITHROMYCIN 500MG/250ML 250 ML IV SCH (09:57)
[2024-11-19] MEDS: FUROSEMIDE 40 MG/4 ML VIAL IV SCH (09:57)
[2024-11-19 11:14] LABS: Magnesium 2.3 mg/dL (1.6-2.6)
[2024-11-19] MEDS: SODIUM CHL 0.9% 1000 ML BAG XX ONE (15:52)
--- NOTE | 2024-11-19 17:43 | DVHPN2 ---
Subjective I am assuming the care of the patient from today onwards patient is here for acute hypoxic respiratory failure. Changes from previous H/P or p: No Changes Respiratory: Shortness of breath Objective Vitals Vital Signs Date Time Temp Pulse Resp B/P (MAP) Pulse Ox O2 Delivery O2 Flow Rate FiO2 11/19/24 16:57 181/71 11/19/24 16:09 101 11/19/24 16:00 20 97 11/19/24 10:26 Oxymizer 7 N/A 11/19/24 08:00 98.2 98.2 Intake/Output Intake and Output 11/19/24 07:00 Output Total 50 ml Balance -50 ml Output Urine Total 50 ml Exam HEENT pupils are reactive Neck is supple CV is S1-S2 regular rate and rhythm Diminished breath sounds bases GI positive bowel sound Extremity no edema GUARD RANGE no motor deficit. Medications Current Medications Medications Dose Ordered Sig/Cristin Route Start Time Stop Time Status Last Admin Dose Admin Ceftriaxone Sodium 50 ml @ 100 mls/hr DAILY@09 IV 11/19/24 09:00 11/19/24 09:11 100 MLS/HR Azithromycin 250 ml @ 125 mls/hr DAILY IV 11/19/24 10:00 11/19/24 09:57 125 MLS/HR Calcium Acetate 1,334 mg TIDWM PO 11/18/24 12:00 11/19/24 13:04 1,334 MG Pantoprazole Sodium 40 mg BID PO 11/18/24 10:00 11/19/24 10:01 40 MG Sucralfate 1 gm BIDAC PO 11/18/24 17:00 11/19/24 16:29 1 GM Tamsulosin HCl 0.4 mg QPM PO 11/18/24 18:00 11/18/24 19:11 0.4 MG Amlodipine Besylate 10 mg BID PO 11/18/24 10:43 11/18/24 22:29 10 MG Levothyroxine Sodium 150 mcg QAM@0600 PO 11/18/24 10:44 11/19/24 06:26 150 MCG Furosemide 40 mg DAILY IV 11/19/24 10:00 11/19/24 09:57 40 MG Albuterol 2.5 mg Q4HWA NEB 11/18/24 14:00 11/19/24 10:20 2.5 MG Ipratropium [place] 0.5 mg Q4HWA NEB 11/18/24 14:00 11/19/24 13:58 0.5 MG Hydralazine HCl 10 mg Q6HP PRN IV 11/18/24 12:00 11/19/24 16:57 10 MG Labetalol HCl 10 mg Q2HPRN PRN IV 11/18/24 23:30 11/19/24 15:09 10 MG Acetaminophen 500 mg Q6HP PRN PO 11/19/24 04:00 11/19/24 04:27 500 MG Laboratory Results Laboratory Tests 11/18/24 08:13 Chemistry Test 11/19/24 10:24 Magnesium Level 2.3 mg/dL (1.6-2.6) Phosphorus Level 4.3 mg/dL (2.4-5.1) Cardiac Markers Test 11/19/24 10:24 B-Type Natriuretic Peptide 559.82 pg/mL (0-100) Urinalysis Test 11/18/24 16:10 Urine Color Light-yellow (Yellow) Urine Clarity Clear (Clear) Urine pH 8.5 (5.0-9.0) Urine Specific [place] 1.010 (1.001-1.035) Urine Protein 2+ (Negative) H Urine Ketones Negative (Negative) Urine Blood 2+ /uL (Negative) H Urine Nitrite Negative (Negative) Urine Bilirubin Negative (Negative) Urine Urobilinogen Normal mg/dL (Negative) Urine Leukocyte Esterase Negative /uL (Negative) Urine RBC 89 /hpf (0 - 3) Urine Microscopic WBC 2 /HPF (0-3) Urine Squamous Epithelial Cells Few /hpf (<5) Urine Bacteria None seen /hpf (None Seen) Urine Glucose 1+ mg/dL (Normal) H Microbiology Microbiology Date/Time Source Procedure Growth Status 11/18/24 09:23 Blood Blood Culture - Preliminary NO GROWTH AFTER 24 HOURS OF INCUBATION. Resulted Assessment/Plan Assessment/Plan 84-year-old male with a known history of severe aortic stenosis, coronary artery disease status post PTCA, congestive heart failure likely diastolic dysfunction, end-stage renal disease on hemodialysis, chronic anemia Hypothyroidism, BPH, hypertension initially presented to the hospital with a shortness of breaths hypoxia with the 81% on room air found to have 1. Acute hypoxic respiratory failure requiring non-rebreather 15 L currently at 3 L of oxygen suspected secondary to underlying fluid overload/pneumonia/congestive heart failure exacerbation 2. Acute on chronic congestive heart failure exacerbation with diastolic dysfunction 3. Suspected pneumonia 4. End-stage renal disease on hemodialysis 5. Hypertension 6. Hypothyroidism 7. Hyperkalemia 8. BPH -continue current management , hemodialysis per renal, resume hypertensive meds, O2 supplementation. -physical therapy evaluation and treatment, repeat VS Plan discussed with: Patient My Orders Orders - DENIS AUGUSTINE MD Procedure Category Date Status Time Basic Metabolic Panel LAB 11/19/24 Logged 17:39 Date of Service: Nov 19, 2024 Billing Provider: DENIS AUGUSTINE MD Common Visit Codes: [id number] INP/OBS CARE(HIGH) DENIS AUGUSTINE MD Nov 19, 2024 17:43
[2024-11-19 20:04] LABS: Chloride 99 mmol/L (98-107); Potassium 4.4 mmol/L (3.5-5.1); Sodium 143 mmol/L (136-145)
[2024-11-19 20:05] LABS: Anion Gap 15 (5-15); Carbon Dioxide 29 mmol/L (20-31)
[2024-11-19 20:06] LABS: Calcium 9.0 mg/dL (8.7-10.4)
[2024-11-19 20:11] LABS: BUN/Creatinine Ratio 6.6 (10.0-20.0)
[2024-11-19 20:20] LABS: Blood Urea Nitrogen 35 mg/dL (9-23); Glucose 115 mg/dL (74-106)
[2024-11-19] MEDS: HALOPERIDOL LACTATE 5 MG/ML INJ VIAL IM ONE (21:00)
[2024-11-20] VITALS (18 sets, daily range): BP systolic 136–163; BP diastolic 51–89; PULSE 80–94; RESP 16–20; TEMP 98.1–98.6; O2SAT 93–100
--- NOTE | 2024-11-20 12:51 | DVHPN2 ---
Progress Note Date Seen: Nov 20, 2024 Medical Necessity Reason Pt with a Central, PICC or Fol: No Subjective Patient reports: No new complaints Review of Systems: HEENT:Normal, CVS:Normal, RESPIRATORY:Normal, GI:Normal, :Normal, MSK:Normal, NEURO:Normal Objective vital signs Vital Sign Date Time Temp Pulse Resp B/P (MAP) Pulse Ox O2 Delivery O2 Flow Rate FiO2 11/20/24 09:58 93 16 100 11/20/24 09:52 Oxymizer 7 N/A 11/20/24 09:28 152/89 11/20/24 05:00 98.3 98.3 Total Intake and Output 11/19/24 11/19/24 11/20/24 15:00 23:00 07:00 Intake Total 100 ml Balance 100 ml medications Current Medications Medications Dose Ordered Sig/Cristin Route Start Time Stop Time Status Last Admin Dose Admin Ceftriaxone Sodium 50 ml @ 100 mls/hr DAILY@09 IV 11/19/24 09:00 11/20/24 09:29 100 MLS/HR Azithromycin 250 ml @ 125 mls/hr DAILY IV 11/19/24 10:00 11/20/24 09:34 125 MLS/HR Calcium Acetate 1,334 mg TIDWM PO 11/18/24 12:00 11/20/24 11:46 1,334 MG Pantoprazole Sodium 40 mg BID PO 11/18/24 10:00 11/20/24 09:26 40 MG Sucralfate 1 gm BIDAC PO 11/18/24 17:00 11/20/24 06:26 1 GM Tamsulosin HCl 0.4 mg QPM PO 11/18/24 18:00 11/19/24 17:49 0.4 MG Amlodipine Besylate 10 mg BID PO 11/18/24 10:43 11/20/24 09:27 10 MG Levothyroxine Sodium 150 mcg QAM@0600 PO 11/18/24 10:44 11/20/24 06:26 150 MCG Furosemide 40 mg DAILY IV 11/19/24 10:00 11/20/24 09:28 40 MG Albuterol 2.5 mg Q4HWA NEB 11/18/24 14:00 11/20/24 09:52 2.5 MG Ipratropium [place] 0.5 mg Q4HWA NEB 11/18/24 14:00 11/20/24 09:52 0.5 MG Hydralazine HCl 10 mg Q6HP PRN IV 11/18/24 12:00 11/19/24 16:57 10 MG Labetalol HCl 10 mg Q2HPRN PRN IV 11/18/24 23:30 11/19/24 21:22 10 MG Acetaminophen 500 mg Q6HP PRN PO 11/19/24 04:00 11/19/24 04:27 500 MG Examination: GENERAL:Normal, HEENT:Normal, NECK:Normal, LUNGS:Normal, LUNGS:Abnormal (on oxygen, rales), CVS:Normal, ABDOMEN:Normal, MSK:Normal, SKIN:Normal, NEURO:Normal, :Normal laboratory and microbiology Laboratory Tests 11/19/24 19:42 11/18/24 08:13 Test 11/19/24 19:42 Range/Units Serum Glucose 115 H 74-106 mg/dL Microbiology Date/Time Source Procedure Growth Status 11/18/24 09:23 Blood Blood Culture - Preliminary NO GROWTH AFTER 48 HOURS OF INCUBATION. Resulted Problem List/Assessment/Plan Problem List/Assessment/Plan #1 acute resp failure: cont oxygen #2 acute on chronic diastolic heart failure: dialysis #3 ?pneumonia- gram positive/neg: zithromax #4 esrd: on dialysis #5 severe #6 cad s/p pci #7 hypertensive emergency: cont meds #8 hypothyroidism advance care planning-full code- time spent 19 mins Plan discussed with: Patient, Son My Orders My Orders Orders - JASWANT CLEMENS MD Procedure Category Date Status Time Azithromycin Tablet PHA 11/21/24 Transmitted (Zithromax Tablet) 10:00 Basic Metabolic Panel LAB 11/21/24 Verified 06:00 Complete Blood Count LAB 11/21/24 Verified 06:00 Chest Portable XY 11/21/24 Transmitted 06:00 * Cardiology Consult CONS 11/20/24 Transmitted 12:45 Date of Service: Nov 20, 2024 Billing Provider: JASWANT CLEMENS MD Common Visit Codes: [id number] INP/OBS CARE(HIGH) Secondary Visit Codes: [id number] CARE PLAN 30 MINUTES JASWANT CLEMENS MD Nov 20, 2024 12:51
--- NOTE | 2024-11-20 14:04 | DVHPN2 ---
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 ECHO LVH EF >55% MOD TO SEVERE MILD MAC LAE LUDA MILD TR MILD MR CAD S/P PTCA TENT RCA 2018 CT AND AND PELVIS DESCENDING COLON COLITIS MESENTERIC ADENOPATHY SEVERE ANEMIA vital signs Vital Sign Date Time Temp Pulse Resp B/P (MAP) Pulse Ox O2 Delivery O2 Flow Rate FiO2 11/20/24 13:43 87 16 97 11/20/24 13:37 Oxymizer 7 N/A 11/20/24 09:28 152/89 11/20/24 05:00 98.3 98.3 Total Intake and Output 11/19/24 11/19/24 11/20/24 15:00 23:00 07:00 Intake Total 100 ml Balance 100 ml medications Current Medications Medications Dose Ordered Sig/Cristin Route Start Time Stop Time Status Last Admin Dose Admin Calcium Acetate 1,334 mg TIDWM PO 11/18/24 12:00 11/20/24 11:46 1,334 MG Pantoprazole Sodium 40 mg BID PO 11/18/24 10:00 11/20/24 09:26 40 MG Sucralfate 1 gm BIDAC PO 11/18/24 17:00 11/20/24 06:26 1 GM Tamsulosin HCl 0.4 mg QPM PO 11/18/24 18:00 11/19/24 17:49 0.4 MG Amlodipine Besylate 10 mg BID PO 11/18/24 10:43 11/20/24 09:27 10 MG Levothyroxine Sodium 150 mcg QAM@0600 PO 11/18/24 10:44 11/20/24 06:26 150 MCG Furosemide 40 mg DAILY IV 11/19/24 10:00 11/20/24 09:28 40 MG Albuterol 2.5 mg Q4HWA NEB 11/18/24 14:00 11/20/24 13:37 2.5 MG Ipratropium [place] 0.5 mg Q4HWA NEB 11/18/24 14:00 11/20/24 13:37 0.5 MG Hydralazine HCl 10 mg Q6HP PRN IV 11/18/24 12:00 11/19/24 16:57 10 MG Acetaminophen 500 mg Q6HP PRN PO 11/19/24 04:00 11/19/24 04:27 500 MG Azithromycin 500 mg DAILY PO 11/21/24 10:00 objective General Appearance: Alert, Oriented X3, Cooperative, No acute distress HEENT: Atraumatic, PERRLA, Mucous membr. 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
--- NOTE | 2024-11-20 14:07 | DVHPN2 ---
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 ECHO LVH EF >55% MOD TO SEVERE MILD MAC LAE LUDA MILD TR MILD MR CAD S/P PTCA TENT RCA 2018 CT AND AND PELVIS DESCENDING COLON COLITIS MESENTERIC ADENOPATHY SEVERE ANEMIA vital signs Vital Sign Date Time Temp Pulse Resp B/P (MAP) Pulse Ox O2 Delivery O2 Flow Rate FiO2 11/20/24 13:43 87 16 97 11/20/24 13:37 Oxymizer 7 N/A 11/20/24 09:28 152/89 11/20/24 05:00 98.3 98.3 Total Intake and Output 11/19/24 11/19/24 11/20/24 15:00 23:00 07:00 Intake Total 100 ml Balance 100 ml medications Current Medications Medications Dose Ordered Sig/Cristin Route Start Time Stop Time Status Last Admin Dose Admin Calcium Acetate 1,334 mg TIDWM PO 11/18/24 12:00 11/20/24 11:46 1,334 MG Pantoprazole Sodium 40 mg BID PO 11/18/24 10:00 11/20/24 09:26 40 MG Sucralfate 1 gm BIDAC PO 11/18/24 17:00 11/20/24 06:26 1 GM Tamsulosin HCl 0.4 mg QPM PO 11/18/24 18:00 11/19/24 17:49 0.4 MG Amlodipine Besylate 10 mg BID PO 11/18/24 10:43 11/20/24 09:27 10 MG Levothyroxine Sodium 150 mcg QAM@0600 PO 11/18/24 10:44 11/20/24 06:26 150 MCG Furosemide 40 mg DAILY IV 11/19/24 10:00 11/20/24 09:28 40 MG Albuterol 2.5 mg Q4HWA NEB 11/18/24 14:00 11/20/24 13:37 2.5 MG Ipratropium [place] 0.5 mg Q4HWA NEB 11/18/24 14:00 11/20/24 13:37 0.5 MG Hydralazine HCl 10 mg Q6HP PRN IV 11/18/24 12:00 11/19/24 16:57 10 MG Acetaminophen 500 mg Q6HP PRN PO 11/19/24 04:00 11/19/24 04:27 500 MG Azithromycin 500 mg DAILY PO 11/21/24 10:00 objective General Appearance: Alert, Oriented X3, Cooperative, No acute distress HEENT: Atraumatic, PERRLA, Mucous membr. 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
[2024-11-20] MEDS: DOBUTamine 1000MCG/ML 250 ML IV SCH (14:43)
--- NOTE | 2024-11-20 16:59 | DVHPN2 ---
Progress Note Date Seen: Nov 20, 2024 Medical Necessity Reason Pt with a Central, PICC or Fol: No Subjective Patient reports: No new complaints Review of Systems: Deferred Objective vital signs Vital Sign Date Time Temp Pulse Resp B/P (MAP) Pulse Ox O2 Delivery O2 Flow Rate FiO2 11/20/24 14:43 147/68 11/20/24 13:43 87 16 97 11/20/24 13:37 Oxymizer 7 N/A 11/20/24 05:00 98.3 98.3 Total Intake and Output 11/19/24 11/19/24 11/20/24 15:00 23:00 07:00 Intake Total 100 ml Balance 100 ml medications Current Medications Medications Dose Ordered Sig/Cristin Route Start Time Stop Time Status Last Admin Dose Admin Calcium Acetate 1,334 mg TIDWM PO 11/18/24 12:00 11/20/24 11:46 1,334 MG Pantoprazole Sodium 40 mg BID PO 11/18/24 10:00 11/20/24 09:26 40 MG Sucralfate 1 gm BIDAC PO 11/18/24 17:00 11/20/24 06:26 1 GM Tamsulosin HCl 0.4 mg QPM PO 11/18/24 18:00 11/19/24 17:49 0.4 MG Amlodipine Besylate 10 mg BID PO 11/18/24 10:43 11/20/24 09:27 10 MG Levothyroxine Sodium 150 mcg QAM@0600 PO 11/18/24 10:44 11/20/24 06:26 150 MCG Furosemide 40 mg DAILY IV 11/19/24 10:00 11/20/24 09:28 40 MG Albuterol 2.5 mg Q4HWA NEB 11/18/24 14:00 11/20/24 13:37 2.5 MG Ipratropium [place] 0.5 mg Q4HWA NEB 11/18/24 14:00 11/20/24 13:37 0.5 MG Hydralazine HCl 10 mg Q6HP PRN IV 11/18/24 12:00 11/19/24 16:57 10 MG Acetaminophen 500 mg Q6HP PRN PO 11/19/24 04:00 11/19/24 04:27 500 MG Azithromycin 500 mg DAILY PO 11/21/24 10:00 Dobutamine HCl/ Dextrose 250 ml @ 12.45 mls/ hr Q20H5M IV 11/20/24 14:15 11/20/24 14:43 12.45 MLS/HR laboratory and microbiology Laboratory Tests 11/19/24 19:42 11/18/24 08:13 Test 11/19/24 19:42 Range/Units Serum Glucose 115 H 74-106 mg/dL Microbiology Date/Time Source Procedure Growth Status 11/18/24 09:23 Blood Blood Culture - Preliminary NO GROWTH AFTER 48 HOURS OF INCUBATION. Resulted Problem List/Assessment/Plan Problem List/Assessment/Plan End-stage renal disease on hemodialysis Acute on chronic diastolic Congestive heart failure Acute on chronic respiratory failure Possible pneumonia Hyperkalemia Hypertensive urgency Anemia of chronic kidney disease, well compensated Recommendations HD tomorrow Resume home medication Blood pressure control Renal diet IV antibiotics We will continue to follow with you Plan discussed with: Patient JERARDO GARCIA MD Nov 20, 2024 16:59
[2024-11-21] VITALS (20 sets, daily range): BP systolic 128–153; BP diastolic 62–83; PULSE 80–137; RESP 16–24; TEMP 97.8–98.2; O2SAT 85–100
--- NOTE | 2024-11-21 05:37 | DVH ---
CHEST RADIOGRAPH Indication: chf Technique: Single frontal view of the chest was obtained COMPARISON: XY CHEST PORTABLE on DOS: 11/18/24, XY CHEST XRAY 1 VIEW on DOS: 11/27/23, XY CHEST LUCAS BLE on DOS: 11/25/23, XY CHEST PORTABLE on DOS: 12/15/22, XY CHEST XRAY 1 VIEW on DOS: 11/19/22 FINDINGS: Lines and Tubes: None Lungs: Unchanged multifocal airspace disease. Pleura: No effusion.No pneumothorax. Cardiomediastinal contours: Unremarkable Bones: Unremarkable IMPRESSION: Unchanged multifocal airspace disease.
[2024-11-21 05:55] LABS: Hematocrit 31.2 % (41.0-53.0); Hemoglobin 10.7 g/dL (13.5-17.5); Mean Corpuscular Hemoglobin 29.9 pg (28.0-32.0); Mean Corpuscular Volume 87.4 fL (80.0-100.0); Nucleated Red Blood Cells % 0.0 %
[2024-11-21 06:01] LABS: Potassium 4.3 mmol/L (3.5-5.1); Sodium 140 mmol/L (136-145)
[2024-11-21 06:02] LABS: Anion Gap 16 (5-15); Carbon Dioxide 28 mmol/L (20-31)
[2024-11-21 06:03] LABS: Calcium 8.8 mg/dL (8.7-10.4)
[2024-11-21 06:08] LABS: BUN/Creatinine Ratio 7.3 (10.0-20.0); Blood Urea Nitrogen 57 mg/dL (9-23); Chloride 96 mmol/L (98-107); Glucose 93 mg/dL (74-106)
[2024-11-21] MEDS: AZITHROMYCIN 250 MG TAB PO SCH (08:25)
--- NOTE | 2024-11-21 11:00 | DVHPN2 ---
Progress Note Date Seen: Nov 21, 2024 Medical Necessity Reason Pt with a Central, PICC or Fol: No Subjective Patient reports: No new complaints Review of Systems: HEENT:Normal, CVS:Normal, RESPIRATORY:Normal, GI:Normal, :Normal, MSK:Normal, NEURO:Normal Objective vital signs Vital Sign Date Time Temp Pulse Resp B/P (MAP) Pulse Ox O2 Delivery O2 Flow Rate FiO2 11/21/24 09:52 97 Oxymizer 6 N/A 11/21/24 08:00 87 11/21/24 05:48 128/62 (84) 11/21/24 01:00 16 11/20/24 21:00 98.6 98.6 Total Intake and Output 11/20/24 11/20/24 11/21/24 15:00 23:00 07:00 Intake Total 300 ml 780 ml 0 ml Balance 300 ml 780 ml 0 ml medications Current Medications Medications Dose Ordered Sig/Cristin Route Start Time Stop Time Status Last Admin Dose Admin Calcium Acetate 1,334 mg TIDWM PO 11/18/24 12:00 11/21/24 08:25 1,334 MG Pantoprazole Sodium 40 mg BID PO 11/18/24 10:00 11/21/24 08:25 40 MG Sucralfate 1 gm BIDAC PO 11/18/24 17:00 11/21/24 05:55 1 GM Tamsulosin HCl 0.4 mg QPM PO 11/18/24 18:00 11/20/24 17:37 0.4 MG Amlodipine Besylate 10 mg BID PO 11/18/24 10:43 11/20/24 21:45 10 MG Levothyroxine Sodium 150 mcg QAM@0600 PO 11/18/24 10:44 11/21/24 05:55 150 MCG Furosemide 40 mg DAILY IV 11/19/24 10:00 11/20/24 09:28 40 MG Albuterol 2.5 mg Q4HWA NEB 11/18/24 14:00 11/20/24 22:39 2.5 MG Ipratropium [place] 0.5 mg Q4HWA NEB 11/18/24 14:00 11/21/24 07:20 0.5 MG Hydralazine HCl 10 mg Q6HP PRN IV 11/18/24 12:00 11/21/24 04:36 10 MG Acetaminophen 500 mg Q6HP PRN PO 11/19/24 04:00 11/19/24 04:27 500 MG Azithromycin 500 mg DAILY PO 11/21/24 10:00 11/21/24 08:25 500 MG Examination: GENERAL:Normal, HEENT:Normal, NECK:Normal, LUNGS:Normal, CVS:Normal, ABDOMEN:Normal, MSK:Normal, SKIN:Normal, NEURO:Normal, :Normal laboratory and microbiology Laboratory Tests 11/21/24 05:27 Test 11/21/24 05:27 Range/Units Serum Glucose 93 74-106 mg/dL Microbiology Date/Time Source Procedure Growth Status 11/18/24 09:23 Blood Blood Culture - Preliminary NO GROWTH AFTER 72 HOURS OF INCUBATION. Resulted Problem List/Assessment/Plan Problem List/Assessment/Plan #1 acute resp failure: cont oxygen #2 acute on chronic diastolic heart failure: dialysis #3 ?pneumonia- gram positive/neg: zithromax #4 esrd: on dialysis #5 severe #6 cad s/p pci #7 hypertensive emergency: cont meds #8 hypothyroidism advance care planning-full code- time spent 19 mins Plan discussed with: Patient My Orders My Orders Orders - JASWANT CLEMENS MD Procedure Category Date Status Time Azithromycin Tablet PHA 11/21/24 In Process (Zithromax Tablet) 10:00 Chest Portable XY 11/21/24 Resulted 06:00 * Cardiology Consult CONS 11/20/24 Transmitted 12:45 Pt Request For Service PT 11/21/24 Logged 07:56 Date of Service: Nov 21, 2024 Billing Provider: JASWANT CLEMENS MD Common Visit Codes: [id number] INP/OBS CARE(HIGH) JASWANT CLEMENS MD Nov 21, 2024 11:00
--- NOTE | 2024-11-21 13:51 | DVHPN2 ---
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 ECHO LVH EF >55% MOD TO SEVERE MILD MAC LAE LUDA MILD TR MILD MR CAD S/P PTCA TENT RCA 2018 CT AND AND PELVIS DESCENDING COLON COLITIS MESENTERIC ADENOPATHY SEVERE ANEMIA vital signs Vital Sign Date Time Temp Pulse Resp B/P (MAP) Pulse Ox O2 Delivery O2 Flow Rate FiO2 11/21/24 13:21 93 Room Air 0.0 11/21/24 13:21 21 11/21/24 13:21 137 18 11/21/24 05:48 128/62 (84) 11/20/24 21:00 98.6 98.6 Total Intake and Output 11/20/24 11/20/24 11/21/24 15:00 23:00 07:00 Intake Total 300 ml 780 ml 0 ml Balance 300 ml 780 ml 0 ml medications Current Medications Medications Dose Ordered Sig/Cristin Route Start Time Stop Time Status Last Admin Dose Admin Calcium Acetate 1,334 mg TIDWM PO 11/18/24 12:00 11/21/24 08:25 1,334 MG Pantoprazole Sodium 40 mg BID PO 11/18/24 10:00 11/21/24 08:25 40 MG Sucralfate 1 gm BIDAC PO 11/18/24 17:00 11/21/24 05:55 1 GM Tamsulosin HCl 0.4 mg QPM PO 11/18/24 18:00 11/20/24 17:37 0.4 MG Amlodipine Besylate 10 mg BID PO 11/18/24 10:43 11/20/24 21:45 10 MG Levothyroxine Sodium 150 mcg QAM@0600 PO 11/18/24 10:44 11/21/24 05:55 150 MCG Furosemide 40 mg DAILY IV 11/19/24 10:00 11/20/24 09:28 40 MG Albuterol 2.5 mg Q4HWA NEB 11/18/24 14:00 11/21/24 10:58 2.5 MG Ipratropium [place] 0.5 mg Q4HWA NEB 11/18/24 14:00 11/21/24 13:21 0.5 MG Hydralazine HCl 10 mg Q6HP PRN IV 11/18/24 12:00 11/21/24 04:36 10 MG Acetaminophen 500 mg Q6HP PRN PO 11/19/24 04:00 11/19/24 04:27 500 MG Azithromycin 500 mg DAILY PO 11/21/24 10:00 11/21/24 08:25 500 MG objective General Appearance: Alert, Oriented X3, Cooperative, No acute distress HEENT: Atraumatic, PERRLA, Mucous membr. 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
--- NOTE | 2024-11-21 17:48 | DVHPN2 ---
Progress Note Date Seen: Nov 21, 2024 Medical Necessity Reason Pt with a Central, PICC or Fol: No Subjective Patient reports: Other Review of Systems: CVS:Abnormal Objective vital signs Vital Sign Date Time Temp Pulse Resp B/P (MAP) Pulse Ox O2 Delivery O2 Flow Rate FiO2 11/21/24 13:29 118 20 100 11/21/24 13:21 Room Air 0.0 11/21/24 13:21 21 11/21/24 13:00 97.9 135/76 (95) 97.9 Total Intake and Output 11/20/24 11/20/24 11/21/24 15:00 23:00 07:00 Intake Total 300 ml 780 ml 0 ml Balance 300 ml 780 ml 0 ml medications Current Medications Medications Dose Ordered Sig/Cristin Route Start Time Stop Time Status Last Admin Dose Admin Calcium Acetate 1,334 mg TIDWM PO 11/18/24 12:00 11/21/24 17:06 1,334 MG Pantoprazole Sodium 40 mg BID PO 11/18/24 10:00 11/21/24 08:25 40 MG Sucralfate 1 gm BIDAC PO 11/18/24 17:00 11/21/24 17:06 1 GM Tamsulosin HCl 0.4 mg QPM PO 11/18/24 18:00 11/21/24 17:06 0.4 MG Amlodipine Besylate 10 mg BID PO 11/18/24 10:43 11/20/24 21:45 10 MG Levothyroxine Sodium 150 mcg QAM@0600 PO 11/18/24 10:44 11/21/24 05:55 150 MCG Furosemide 40 mg DAILY IV 11/19/24 10:00 11/20/24 09:28 40 MG Albuterol 2.5 mg Q4HWA NEB 11/18/24 14:00 11/21/24 10:58 2.5 MG Ipratropium [place] 0.5 mg Q4HWA NEB 11/18/24 14:00 11/21/24 13:21 0.5 MG Hydralazine HCl 10 mg Q6HP PRN IV 11/18/24 12:00 11/21/24 04:36 10 MG Acetaminophen 500 mg Q6HP PRN PO 11/19/24 04:00 11/19/24 04:27 500 MG Azithromycin 500 mg DAILY PO 11/21/24 10:00 11/21/24 08:25 500 MG Examination: GENERAL:Normal, CVS:Abnormal, NEURO:Normal laboratory and microbiology Laboratory Tests 11/21/24 05:27 Test 11/21/24 05:27 Range/Units Serum Glucose 93 74-106 mg/dL Microbiology Date/Time Source Procedure Growth Status 11/18/24 09:23 Blood Blood Culture - Preliminary NO GROWTH AFTER 72 HOURS OF INCUBATION. Resulted Problem List/Assessment/Plan Problem List/Assessment/Plan End-stage renal disease on hemodialysis Acute on chronic diastolic Congestive heart failure Acute on chronic respiratory failure Possible pneumonia Hyperkalemia Hypertensive urgency Anemia of chronic kidney disease, well compensated Recommendations HD today hr high on HD -stopped after 2 hrs Renal diet cardio f/u Plan discussed with: Patient My Orders My Orders Orders - JERARDO GARCIA MD Procedure Category Date Status Time Hemodialysis Orders ORDERS 11/21/24 Transmitted 04:00 JERARDO GARCIA MD Nov 21, 2024 17:48
[2024-11-22] VITALS (16 sets, daily range): BP systolic 109–162; BP diastolic 45–71; PULSE 81–97; RESP 16–18; TEMP 97.8–98.5; O2SAT 91–100
--- NOTE | 2024-11-22 10:44 | DVHPN2 ---
Progress Note Date Seen: Nov 22, 2024 Medical Necessity Reason Pt with a Central, PICC or Fol: No Subjective Patient reports: No new complaints Review of Systems: HEENT:Normal, CVS:Normal, RESPIRATORY:Normal, GI:Normal, :Normal, MSK:Normal, NEURO:Normal Objective vital signs Vital Sign Date Time Temp Pulse Resp B/P (MAP) Pulse Ox O2 Delivery O2 Flow Rate FiO2 11/22/24 10:07 162/71 11/22/24 10:05 85 16 96 11/22/24 05:00 98.0 98.0 11/21/24 20:00 Nasal Cannula* 3 32 Total Intake and Output 11/21/24 11/21/24 11/22/24 15:00 23:00 07:00 Intake Total 450 ml 0 ml Output Total 0 ml Balance 450 ml 0 ml medications Current Medications Medications Dose Ordered Sig/Cristin Route Start Time Stop Time Status Last Admin Dose Admin Calcium Acetate 1,334 mg TIDWM PO 11/18/24 12:00 11/22/24 10:06 1,334 MG Pantoprazole Sodium 40 mg BID PO 11/18/24 10:00 11/22/24 10:07 40 MG Sucralfate 1 gm BIDAC PO 11/18/24 17:00 11/22/24 06:16 1 GM Tamsulosin HCl 0.4 mg QPM PO 11/18/24 18:00 11/21/24 17:06 0.4 MG Amlodipine Besylate 10 mg BID PO 11/18/24 10:43 11/22/24 10:07 10 MG Levothyroxine Sodium 150 mcg QAM@0600 PO 11/18/24 10:44 11/22/24 06:16 150 MCG Furosemide 40 mg DAILY IV 11/19/24 10:00 11/22/24 10:06 40 MG Albuterol 2.5 mg Q4HWA NEB 11/18/24 14:00 11/22/24 10:32 2.5 MG Ipratropium [place] 0.5 mg Q4HWA NEB 11/18/24 14:00 11/22/24 10:32 0.5 MG Hydralazine HCl 10 mg Q6HP PRN IV 11/18/24 12:00 11/21/24 04:36 10 MG Acetaminophen 500 mg Q6HP PRN PO 11/19/24 04:00 10/12/25 04:27 500 MG Azithromycin 500 mg DAILY PO 11/21/24 10:00 11/22/24 10:06 500 MG Examination: GENERAL:Normal, HEENT:Normal, NECK:Normal, LUNGS:Normal, LUNGS:Abnormal (ON OXYGEN), CVS:Normal, ABDOMEN:Normal, MSK:Normal, SKIN:Normal, NEURO:Normal, :Normal laboratory and microbiology Laboratory Tests 11/21/24 05:27 Test 11/21/24 05:27 Range/Units Serum Glucose 93 74-106 mg/dL Microbiology Date/Time Source Procedure Growth Status 11/18/24 09:23 Blood Blood Culture - Preliminary NO GROWTH AFTER 72 HOURS OF INCUBATION. Resulted Problem List/Assessment/Plan Problem List/Assessment/Plan #1 acute resp failure: cont oxygen #2 acute on chronic diastolic heart failure: dialysis #3 ?pneumonia- gram positive/neg: zithromax #4 esrd: on dialysis #5 severe #6 cad s/p pci #7 hypertensive emergency: cont meds #8 hypothyroidism advance care planning-full code- time spent 19 mins Plan discussed with: Patient Date of Service: Nov 22, 2024 Billing Provider: JASWANT CLEMENS MD Common Visit Codes: [id number] INP/OBS CARE(HIGH) JASWANT CLEMENS MD Nov 22, 2024 10:44
--- NOTE | 2024-11-22 13:06 | DVHPN2 ---
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 ECHO LVH EF >55% MOD TO SEVERE MILD MAC LAE LUDA MILD TR MILD MR CAD S/P PTCA TENT RCA 2018 CT AND AND PELVIS DESCENDING COLON COLITIS MESENTERIC ADENOPATHY SEVERE ANEMIA vital signs Vital Sign Date Time Temp Pulse Resp B/P (MAP) Pulse Ox O2 Delivery O2 Flow Rate FiO2 11/22/24 10:15 84 16 100 11/22/24 10:07 162/71 11/22/24 08:00 Nasal Cannula* 3 32 11/22/24 05:00 98.0 98.0 Total Intake and Output 11/21/24 11/21/24 11/22/24 15:00 23:00 07:00 Intake Total 450 ml 0 ml Output Total 0 ml Balance 450 ml 0 ml medications Current Medications Medications Dose Ordered Sig/Cristin Route Start Time Stop Time Status Last Admin Dose Admin Calcium Acetate 1,334 mg TIDWM PO 11/18/24 12:00 11/22/24 10:06 1,334 MG Pantoprazole Sodium 40 mg BID PO 11/18/24 10:00 11/22/24 10:07 40 MG Sucralfate 1 gm BIDAC PO 11/18/24 17:00 11/22/24 06:16 1 GM Tamsulosin HCl 0.4 mg QPM PO 11/18/24 18:00 11/21/24 17:06 0.4 MG Amlodipine Besylate 10 mg BID PO 11/18/24 10:43 11/22/24 10:07 10 MG Levothyroxine Sodium 150 mcg QAM@0600 PO 11/18/24 10:44 11/22/24 06:16 150 MCG Furosemide 40 mg DAILY IV 11/19/24 10:00 11/22/24 10:06 40 MG Albuterol 2.5 mg Q4HWA NEB 11/18/24 14:00 11/22/24 10:32 2.5 MG Ipratropium [place] 0.5 mg Q4HWA NEB 11/18/24 14:00 11/22/24 10:32 0.5 MG Hydralazine HCl 10 mg Q6HP PRN IV 11/18/24 12:00 11/21/24 04:36 10 MG Acetaminophen 500 mg Q6HP PRN PO 11/19/24 04:00 11/19/24 04:27 500 MG Azithromycin 500 mg DAILY PO 11/21/24 10:00 11/22/24 10:06 500 MG objective General Appearance: Alert, Oriented X3, Cooperative, No acute distress HEENT: Atraumatic, PERRLA, Mucous membr. 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
--- NOTE | 2024-11-22 13:53 | DVHDS2 ---
Discharge Summary Date of Admission Nov 18, 2024 at 14:35 Date of Discharge: Nov 22, 2024 Admitting Diagnosis RESP FAILURE Labs/Diagnostic Data: Laboratory Results Test 11/21/24 05:27 11/19/24 10:24 11/18/24 16:10 11/18/24 11:37 White Blood Count 7.2 10^3/uL (4.4-10.8) Red Blood Count 3.56 10^6/uL (4.5-5.90) Hemoglobin 10.7 g/dL (13.5-17.5) Hematocrit 31.2 % (41.0-53.0) Mean Corpuscular Volume 87.4 fL (80.0-100.0) Mean Corpuscular Hemoglobin 29.9 pg (28.0-32.0) Mean Corpuscular Hemoglobin Concent 34.2 g/dL (32.0-36.0) Red Cell Distribution Width 14.5 % (11.8-14.3) Platelet Count 290 10^3/uL (140-450) Mean Platelet Volume 8.4 fL (6.9-10.8) Neutrophils (%) (Auto) 79.1 % (37.0-80.0) Lymphocytes (%) (Auto) 6.4 % (10.0-50.0) Monocytes (%) (Auto) 12.5 % (0.0-12.0) Eosinophils (%) (Auto) 1.5 % (0.0-7.0) Basophils (%) (Auto) 0.5 % (0.0-2.0) Neutrophils # (Auto) 5.7 10 ^3/uL (1.6-8.6) Lymphocytes # (Auto) 0.5 10 ^3/uL (0.4-5.4) Monocytes # (Auto) 0.9 10 ^3/uL (0-1.3) Eosinophils # (Auto) 0.1 10 ^3/uL (0-0.8) Basophils # (Auto) 0 10 ^3/uL (0-0.2) Nucleated Red Blood Cells 0.0 % Sodium Level 140 mmol/L (136-145) Potassium Level 4.3 mmol/L (3.5-5.1) Chloride Level 96 mmol/L (98-107) Carbon Dioxide Level 28 mmol/L (20-31) Anion Gap 16 (5-15) Blood Urea Nitrogen 57 mg/dL (9-23) Creatinine 7.84 mg/dL (0.700-1.30) Glomerular Filtration Rate Calc 6 mL/min (>90) BUN/Creatinine Ratio 7.3 (10.0-20.0) Serum Glucose 93 mg/dL (74-106) Calcium Level 8.8 mg/dL (8.7-10.4) Phosphorus Level 4.3 mg/dL (2.4-5.1) Magnesium Level 2.3 mg/dL (1.6-2.6) B-Type Natriuretic Peptide 559.82 pg/mL (0-100) Vitamin D 25-Hydroxy 45.8 ng/mL (30.0-100) Parathyroid Hormone (Intact) 285.9 pg/mL (18.4-80.1) Hepatitis B Surface Antigen Negative (Negative) Urine Color Light-yellow (Yellow) Urine Clarity Clear (Clear) Urine pH 8.5 (5.0-9.0) Urine Specific Jonancy 1.010 (1.001-1.035) Urine Protein 2+ (Negative) Urine Ketones Negative (Negative) Urine Blood 2+ /uL (Negative) Urine Nitrite Negative (Negative) Urine Bilirubin Negative (Negative) Urine Urobilinogen Normal mg/dL (Negative) Urine Leukocyte Esterase Negative /uL (Negative) Urine RBC 89 /hpf (0 - 3) Urine Microscopic WBC 2 /HPF (0-3) Urine Squamous Epithelial Cells Few /hpf (<5) Urine Bacteria None seen /hpf (None Seen) Urine Glucose 1+ mg/dL (Normal) Urine Opiates Screen Neg (NEGATIVE) Urine Fentanyl Screen Neg (NEGATIVE) Urine Barbiturates Screen Neg (NEGATIVE) Urine Phencyclidine Screen Neg (NEGATIVE) Urine Amphetamines Screen Neg (NEGATIVE) Urine Benzodiazepines Screen Neg (NEGATIVE) Urine Cocaine Screen Neg (NEGATIVE) Urine Cannabinoids Screen Neg (NEGATIVE) Troponin I High Sensitivity 52 ng/L (</=54) Test 11/18/24 10:16 11/18/24 09:35 Blood Gas Specimen Type Arterial Blood Gas Sample Site Right radial Blood Gas Patient Temperature 37.0 Arterial Blood Date Drawn [id number] Arterial Blood pH 7.438 (7.350-7.450) Arterial Blood Partial Pressure CO2 37.5 mmHg (35.0-48.0) Arterial Blood Partial Pressure O2 61.0 mmHg (83.0-108.0) Arterial Blood HCO3 24.8 mmol/L (21.0-28.0) Arterial Blood Oxygen Saturation 90.4 % (94.0-98.0) Arterial Blood Base Excess 0.8 mmol/L (-2.0-3.0) Arterial Blood Oxyhemoglobin 89.3 % (94.0-98.0) Arterial Blood Carboxyhemoglobin 1.0 % (0.5-1.5) Arterial Blood Methemoglobin 0.2 % (0.0-1.5) Artem Test Yes Blood Gas Total Hemoglobin 12.70 g/dL (13.5-17.5) Blood Gas Liter Flow 4.00 Blood Gas Modality Nasal cannula FiO2 % 36.0 Thyroid Stimulating Hormone (TSH) 2.02 uIU/mL (0.55-4.78) Other Laboratory Tests 11/21/24 05:27 Brief Hx & Hospital Course: ESRD ON HD 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 ECHO LVH EF >55% SEVERE MILD MAC LAE ULDA MILD TR MILD MR CAD S/P PTCA TENT RCA 2018 CT AND AND PELVIS DESCENDING COLON COLITIS MESENTERIC ADENOPATHY SEVERE ANEMIA ACUTE DECOMPENSATION OF CHF Assessment/Plan DIALYSIS DOBUTAMINE PT HAS BEEN REFERRED TO [facility] FOR TAVR SCHEDULE FOR L/RHC STABLE FLUID STATUS STABLE WILL DC HOME Consults/Reason for consult CARDIOLOGY NEPHROLOGY Condition at Discharge: Guarded Final Diagnosis/Problems List resp failure esrd on hd fluid overload Discharge Disposition: Home Discharge Instruct/Medications Diet: Cardiac 2g Na,low cholest Activity: No Restrictions, As Tolerated Follow Up/Referral: 1 week Medications: cont home meds Scheduled Amlodipine Besylate (Amlodipine Besylate), 1 TAB PO BID, (Reported) Calcium Acetate (Phosphate Bin (Calcium Acetate), 2 TAB PO TIDWM, (Reported) Levothyroxine Sodium (Levothyroxine Sodium), 150 MCG PO QAM, (Reported) Pantoprazole Sodium Sesquihydr (Pantoprazole Sodium), 40 MG PO BID Sucralfate (Carafate), 1 GM PO BID Tamsulosin Hcl (Tamsulosin Hcl), 0.4 MG PO QPM, (Reported) Discharge Statement: "Patient was advised to return to the ER or call 911 if any headaches, dizziness, shortness of breath, chest pain, abdominal pain, bleeding, fevers, or worsening of medical condition. Patient was counseled about treatment plan, medications, possible side effects, patientverbalized understanding. All questions were answered to the best of my ability. This discharge took greater then 30 minutes in planning, reviewing documentation, counseling the patient, and discussing with other team members." ASSESSMENT ASSESSMENT Assessment resp failure esrd on hd fluid overload JENNIFER FLORES MD Nov 22, 2024 13:53
--- NOTE | 2024-11-22 18:21 | DVHPN2 ---
Progress Note Date Seen: Nov 22, 2024 Medical Necessity Reason Pt with a Central, PICC or Fol: No Subjective Patient reports: No new complaints Review of Systems: Deferred Objective vital signs Vital Sign Date Time Temp Pulse Resp B/P (MAP) Pulse Ox O2 Delivery O2 Flow Rate FiO2 11/22/24 17:00 98.0 88 17 145/68 (93) 97 98.0 11/22/24 13:43 Room Air 3.0 11/22/24 13:43 32 Total Intake and Output 11/21/24 11/21/24 11/22/24 15:00 23:00 07:00 Intake Total 450 ml 0 ml Output Total 0 ml Balance 450 ml 0 ml medications Current Medications Medications Dose Ordered Sig/Cristin Route Start Time Stop Time Status Last Admin Dose Admin Calcium Acetate 1,334 mg TIDWM PO 11/18/24 12:00 11/22/24 18:19 1,334 MG Pantoprazole Sodium 40 mg BID PO 11/18/24 10:00 11/22/24 10:07 40 MG Sucralfate 1 gm BIDAC PO 11/18/24 17:00 11/22/24 18:19 1 GM Tamsulosin HCl 0.4 mg QPM PO 11/18/24 18:00 11/22/24 18:19 0.4 MG Amlodipine Besylate 10 mg BID PO 11/18/24 10:43 11/22/24 10:07 10 MG Levothyroxine Sodium 150 mcg QAM@0600 PO 11/18/24 10:44 11/22/24 06:16 150 MCG Furosemide 40 mg DAILY IV 11/19/24 10:00 11/22/24 10:06 40 MG Albuterol 2.5 mg Q4HWA NEB 11/18/24 14:00 11/22/24 13:43 2.5 MG Ipratropium [place] 0.5 mg Q4HWA NEB 11/18/24 14:00 11/22/24 13:43 0.5 MG Hydralazine HCl 10 mg Q6HP PRN IV 11/18/24 12:00 11/21/24 04:36 10 MG Acetaminophen 500 mg Q6HP PRN PO 11/19/24 04:00 11/19/24 04:27 500 MG Azithromycin 500 mg DAILY PO 11/21/24 10:00 11/22/24 10:06 500 MG Examination: GENERAL:Normal, LUNGS:Normal, CVS:Normal, MSK:Abnormal laboratory and microbiology Laboratory Tests 11/21/24 05:27 Test 11/21/24 05:27 Range/Units Serum Glucose 93 74-106 mg/dL Microbiology Date/Time Source Procedure Growth Status 11/18/24 09:23 Blood Blood Culture - Preliminary NO GROWTH AFTER 72 HOURS OF INCUBATION. Resulted Problem List/Assessment/Plan Problem List/Assessment/Plan End-stage renal disease on hemodialysis Acute on chronic diastolic Congestive heart failure Acute on chronic respiratory failure Possible pneumonia Hyperkalemia Hypertensive urgency Anemia of chronic kidney disease, well compensated Recommendations HD tomorrow if still here Renal diet cardio f/u Plan discussed with: Patient JERARDO GARCIA MD Nov 22, 2024 18:21
[2024-11-23] VITALS (13 sets, daily range): BP systolic 136–151; BP diastolic 67–92; PULSE 79–117; RESP 16–19; TEMP 97.5–98.6; O2SAT 90–100
--- NOTE | 2024-11-23 07:08 | DVHPN2 ---
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 ECHO LVH EF >55% MOD TO SEVERE MILD MAC LAE LUDA MILD TR MILD MR CAD S/P PTCA TENT RCA 2018 CT AND AND PELVIS DESCENDING COLON COLITIS MESENTERIC ADENOPATHY SEVERE ANEMIA vital signs Vital Sign Date Time Temp Pulse Resp B/P (MAP) Pulse Ox O2 Delivery O2 Flow Rate FiO2 11/23/24 06:41 81 18 100 11/23/24 06:33 Nasal Cannula 4.0 11/23/24 06:33 36 11/23/24 05:00 97.5 136/92 (107) 97.5 Total Intake and Output 11/22/24 11/22/24 11/23/24 15:00 23:00 07:00 Intake Total 800 ml 300 ml Output Total 50 ml Balance 750 ml 300 ml medications Current Medications Medications Dose Ordered Sig/Cristin Route Start Time Stop Time Status Last Admin Dose Admin Calcium Acetate 1,334 mg TIDWM PO 11/18/24 12:00 11/22/24 18:19 1,334 MG Pantoprazole Sodium 40 mg BID PO 11/18/24 10:00 11/22/24 21:15 40 MG Sucralfate 1 gm BIDAC PO 11/18/24 17:00 11/23/24 05:45 1 GM Tamsulosin HCl 0.4 mg QPM PO 11/18/24 18:00 11/22/24 18:19 0.4 MG Amlodipine Besylate 10 mg BID PO 11/18/24 10:43 11/22/24 21:15 10 MG Levothyroxine Sodium 150 mcg QAM@0600 PO 11/18/24 10:44 11/23/24 05:45 150 MCG Furosemide 40 mg DAILY IV 11/19/24 10:00 11/22/24 10:06 40 MG Albuterol 2.5 mg Q4HWA NEB 11/18/24 14:00 11/23/24 06:33 2.5 MG Ipratropium [place] 0.5 mg Q4HWA NEB 11/18/24 14:00 11/23/24 06:33 0.5 MG Hydralazine HCl 10 mg Q6HP PRN IV 11/18/24 12:00 11/22/24 21:15 10 MG Acetaminophen 500 mg Q6HP PRN PO 11/19/24 04:00 11/19/24 04:27 500 MG Azithromycin 500 mg DAILY PO 11/21/24 10:00 11/22/24 10:06 500 MG objective General Appearance: Alert, Oriented X3, Cooperative, No acute distress HEENT: Atraumatic, PERRLA, Mucous membr. 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
[2024-11-23 08:18] LABS: Base Excess 2.4 mmol/L (-2.0-3.0)
--- NOTE | 2024-11-23 11:22 | DVHPN2 ---
Progress Note Date Seen: Nov 23, 2024 Medical Necessity Reason Pt with a Central, PICC or Fol: No Subjective Patient reports: No new complaints Review of Systems: HEENT:Normal, CVS:Normal, RESPIRATORY:Normal, GI:Normal, :Normal, MSK:Normal, NEURO:Normal Objective vital signs Vital Sign Date Time Temp Pulse Resp B/P (MAP) Pulse Ox O2 Delivery O2 Flow Rate FiO2 11/23/24 10:35 90 18 100 11/23/24 10:30 Nasal Cannula 3.0 11/23/24 10:30 32 11/23/24 09:00 98.2 151/75 (100) 98.2 Total Intake and Output 11/22/24 11/22/24 11/23/24 15:00 23:00 07:00 Intake Total 800 ml 300 ml Output Total 50 ml Balance 750 ml 300 ml medications Current Medications Medications Dose Ordered Sig/Cristin Route Start Time Stop Time Status Last Admin Dose Admin Calcium Acetate 1,334 mg TIDWM PO 11/18/24 12:00 11/23/24 08:51 1,334 MG Pantoprazole Sodium 40 mg BID PO 11/18/24 10:00 11/22/24 21:15 40 MG Sucralfate 1 gm BIDAC PO 11/18/24 17:00 11/23/24 05:45 1 GM Tamsulosin HCl 0.4 mg QPM PO 11/18/24 18:00 11/22/24 18:19 0.4 MG Amlodipine Besylate 10 mg BID PO 11/18/24 10:43 11/22/24 21:15 10 MG Levothyroxine Sodium 150 mcg QAM@0600 PO 11/18/24 10:44 11/23/24 05:45 150 MCG Furosemide 40 mg DAILY IV 11/19/24 10:00 11/22/24 10:06 40 MG Albuterol 2.5 mg Q4HWA NEB 11/18/24 14:00 11/23/24 10:28 2.5 MG Ipratropium [place] 0.5 mg Q4HWA NEB 11/18/24 14:00 11/23/24 10:28 0.5 MG Hydralazine HCl 10 mg Q6HP PRN IV 11/18/24 12:00 11/22/24 21:15 10 MG Acetaminophen 500 mg Q6HP PRN PO 11/19/24 04:00 11/19/24 04:27 500 MG Azithromycin 500 mg DAILY PO 11/21/24 10:00 11/22/24 10:06 500 MG Examination: GENERAL:Normal, HEENT:Normal, NECK:Normal, LUNGS:Normal, CVS:Normal, ABDOMEN:Normal, MSK:Normal, SKIN:Normal, NEURO:Normal, :Normal laboratory and microbiology Laboratory Tests 11/21/24 05:27 Test 11/21/24 05:27 Range/Units Serum Glucose 93 74-106 mg/dL Microbiology Date/Time Source Procedure Growth Status 11/18/24 09:23 Blood Blood Culture - Final NO GROWTH AFTER 5 DAYS OF INCUBATION. Complete Problem List/Assessment/Plan Problem List/Assessment/Plan #1 acute resp failure: cont oxygen #2 acute on chronic diastolic heart failure: dialysis #3 ?pneumonia- gram positive/neg: zithromax #4 esrd: on dialysis #5 severe #6 cad s/p pci #7 hypertensive emergency: cont meds #8 hypothyroidism dc home today advance care planning-full code- time spent 19 mins Plan discussed with: Patient My Orders My Orders Orders - JASWANT CLEMENS MD Procedure Category Date Status Time * Crane Operator Cab CONS 11/23/24 Transmitted Consult Discharge DISCHARGE 11/23/24 Transmitted 11:21 Date of Service: Nov 23, 2024 Billing Provider: JASWANT CLEMENS MD Common Visit Codes: [id number] INP/OBS CARE(HIGH) JASWANT CLEMENS MD Nov 23, 2024 11:22
--- NOTE | 2024-11-23 21:59 | DVHPN2 ---
Progress Note Date Seen: Nov 23, 2024 Medical Necessity Reason Pt with a Central, PICC or Fol: No Subjective Patient reports: No new complaints Review of Systems: Deferred Objective vital signs Vital Sign Date Time Temp Pulse Resp B/P (MAP) Pulse Ox O2 Delivery O2 Flow Rate FiO2 11/23/24 15:55 98.6 88 17 96 11/23/24 14:00 Nasal Cannula* 3 32 11/23/24 12:54 143/82 (102) Total Intake and Output 11/22/24 11/22/24 11/23/24 15:00 23:00 07:00 Intake Total 800 ml 300 ml Output Total 50 ml Balance 750 ml 300 ml Examination: GENERAL:Normal, HEENT:Normal, NECK:Normal, LUNGS:Normal, CVS:Normal, ABDOMEN:Normal, MSK:Normal, SKIN:Normal, NEURO:Normal, :Normal laboratory and microbiology Laboratory Tests 11/21/24 05:27 Test 11/21/24 05:27 Range/Units Serum Glucose 93 74-106 mg/dL Microbiology Date/Time Source Procedure Growth Status 11/18/24 09:23 Blood Blood Culture - Final NO GROWTH AFTER 5 DAYS OF INCUBATION. Complete Problem List/Assessment/Plan Problem List/Assessment/Plan End-stage renal disease on hemodialysis Acute on chronic diastolic Congestive heart failure Acute on chronic respiratory failure Possible pneumonia Hyperkalemia Hypertensive urgency Anemia of chronic kidney disease, well compensated Recommendations HD today Renal diet cardio f/u Plan discussed with: Patient My Orders My Orders Orders - JERARDO GARCIA MD Procedure Category Date Status Time Hemodialysis Orders ORDERS 11/23/24 Transmitted 08:09 JERARDO GARCIA MD Nov 23, 2024 21:59
== END 2024-11-23 16:30 | disposition home or self-care (01) | DRG 871 ==
LOC: EDBD 06:56 → ER 06:57 → OVERFLOW 14:35 → TELE-EAST 11-20 01:58
PROVIDERS: ADMIT Internal Medicine; ATTEND Internal Medicine
PROC: 5A1D70Z Performance of Urinary Filtration, Intermittent, Less than 6 Hours Per Day (ICD-10-PCS; principal; 2024-11-19)
PROC: 5A1D70Z Performance of Urinary Filtration, Intermittent, Less than 6 Hours Per Day (ICD-10-PCS; 2024-11-21)
PROC: 5A1D70Z Performance of Urinary Filtration, Intermittent, Less than 6 Hours Per Day (ICD-10-PCS; 2024-11-23)
DX: A41.50 Gram-negative sepsis, unspecified (principal); I50.33 Acute on chronic diastolic (congestive) heart failure; J15.69 Pneumonia due to other Gram-negative bacteria; J96.21 Acute and chronic respiratory failure with hypoxia; N18.6 End stage renal disease; J15.9 Unspecified bacterial pneumonia; I13.2 Hypertensive heart and chronic kidney disease with heart failure and with stage 5 chronic kidney disease, or end stage renal disease; I16.1 Hypertensive emergency; Z99.2 Dependence on renal dialysis; D63.1 Anemia in chronic kidney disease; E03.9 Hypothyroidism, unspecified; I35.0 Nonrheumatic aortic (valve) stenosis; E87.5 Hyperkalemia; N40.0 Benign prostatic hyperplasia without lower urinary tract symptoms; I25.10 Atherosclerotic heart disease of native coronary artery without angina pectoris; K52.9 Noninfective gastroenteritis and colitis, unspecified; I95.9 Hypotension, unspecified; Z82.49 Family history of ischemic heart disease and other diseases of the circulatory system; Z82.5 Family history of asthma and other chronic lower respiratory diseases; Z83.3 Family history of diabetes mellitus; Z86.73 Personal history of transient ischemic attack (TIA), and cerebral infarction without residual deficits; Z87.01 Personal history of pneumonia (recurrent); Z98.61 Coronary angioplasty status; Z79.899 Other long term (current) drug therapy
CPT/HCPCS: 36415; 36600; 71045; 80048; 80307; 81001; 82306; 82805; 83735; 83880; 83970; 84100; 84443; 84484; 85025; 87040; 87340; 90935; 93005; 93306; 94640; 96365; 96375; 97163; 99291; G0378; J1642; J1815

== ENCOUNTER 2024-12-20 09:51 | Outpatient (CLI) | payer MEDICARE, BC ==
[2024-12-20 10:00] VITALS: BP 179/81; PULSE 77; RESP 16; O2SAT 99
[2024-12-20 10:20] VITALS: BP 184/86; PULSE 72; RESP 16; O2SAT 99
[2024-12-20] MEDS ORDERED: TRAM50TA2 PO (11:35)
[2024-12-20] MEDS ORDERED: POM (13:01)
[2024-12-20] MEDS ORDERED: MULTTAB99 PO (14:23)
[2024-12-20] MEDS ORDERED: TEMA15CA2 PO (14:24)
--- NOTE | 2024-12-21 10:32 | DVHHP ---
ADMIT DATE: 12/20/2024 HISTORY OF PRESENT ILLNESS: The patient who is well known to me, who is 84 years old with history of end-stage renal disease. Hemodialysis to diastolic dysfunction, marked elevation in left ventricular end-diastolic pressure, as well as a patient with concentric LVH. He has had angiogram done 2 years ago. At that time, the patient had an aortic valve area of 1.2 cm2. Now his symptoms have worsened and he is becoming more symptomatic, dizzy, near-syncopal episode. Therefore, echocardiogram shows severe aortic valve stenosis. The patient is now to undergo right and left heart catheterization so that we can ascertain if the patient is indeed a candidate for TAVR. Coronary anatomy needs to be defined. If there is any coronary artery disease, it needs to be evaluated and treated appropriately if it is significant. He denies any fever, chills, melena, hematochezia, hematemesis or hemoptysis. 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 He ended up with acute renal failure and subsequently ended up on dialysis and prior to him becoming end-stage renal disease, he had no prior history. FAMILY HISTORY: Negative. SOCIAL HISTORY: Negative. PHYSICAL EXAMINATION: VITAL SIGNS: Blood pressure is 182/80, pulse of 70, O2 saturation 96% on room air. HEENT: Pupils are reactive. Funduscopic exam shows some AV nicking and some hard exudates. No papilledema, however. Extraocular muscles are intact. Sclerae anicteric. Oral mucosa moist. Posterior pharynx without any exudates. NECK: No cervical adenopathy. No supraclavicular adenopathy. JVD about 2 cm above the angle of Basilio. PULMONARY: Clear to auscultation in all lung crooks. Tympanic to percussion. No rhonchi, no wheezes, no egophony. CARDIOVASCULAR: Regular rate. There is a 2/6 crescendo-decrescendo murmur along the left sternal border radiating to the second right intercostal space. PMI is not displaced. ABDOMEN: Obese, soft, nontender. Normal bowel sounds. Stool guaiac is negative. SKIN: Unremarkable. EXTREMITIES: Unremarkable. NEUROLOGIC: The patient is neurologically stable. No evidence of any focality of the examination. ASSESSMENT AND PLAN: * Thus, the patient with diastolic heart failure. * End-stage renal disease. * Severe to critical aortic valve stenosis. RECOMMENDATIONS: The patient is to undergo left and right heart catheterization. I will make further recommendations after the above tests are completed. Maurizio Madrid MD SA/ARABELLA TID: [id number] RECEIPT: [id number]
== END 2024-12-20 17:00 | disposition home or self-care (01) ==
LOC: CHF HDHVI 09:51
PROVIDERS: ATTEND Internal Medicine Cardiovascular Disease
DX: Z01.810 Encounter for preprocedural cardiovascular examination (principal); I13.2 Hypertensive heart and chronic kidney disease with heart failure and with stage 5 chronic kidney disease, or end stage renal disease; I50.30 Unspecified diastolic (congestive) heart failure; N18.6 End stage renal disease; I35.0 Nonrheumatic aortic (valve) stenosis; N17.9 Acute kidney failure, unspecified; Z99.2 Dependence on renal dialysis
CPT/HCPCS: 93005; G0463

== ENCOUNTER 2024-12-21 06:57 | Day surgery (SDC) | payer MEDICARE, BC ==
[2024-12-20 13:02] LABS: Hematocrit 35.5 % (41.0-53.0); Hemoglobin 11.5 g/dL (13.5-17.5); Mean Corpuscular Hemoglobin 28.3 pg (28.0-32.0); Mean Corpuscular Volume 87.2 fL (80.0-100.0); Nucleated Red Blood Cells % 0.2 %
[2024-12-20 13:15] LABS: INR 0.98 (0.9-1.15); Partial Thromboplastin Time 28.0 SEC (24.5-34.5); Prothrombin Time 10.4 sec (9.3-11.8)
[2024-12-20 13:25] LABS: Chloride 103 mmol/L (98-107)
[2024-12-20 13:26] LABS: Anion Gap 16 (5-15); Calcium 9.7 mg/dL (8.7-10.4); Carbon Dioxide 27 mmol/L (20-31)
[2024-12-20 13:31] LABS: BUN/Creatinine Ratio 6.1 (10.0-20.0); Glucose 94 mg/dL (74-106)
[2024-12-20 13:47] LABS: Blood Urea Nitrogen 41 mg/dL (9-23); Sodium 146 mmol/L (136-145)
[2024-12-20 13:49] LABS: Potassium 5.9 mmol/L (3.5-5.1)
[2024-12-21] VITALS (8 sets, daily range): BP systolic 144–171; BP diastolic 63–73; PULSE 64–73; RESP 10–14; O2SAT 90–99
[~2024-12-21] VITALS: Ht 172.7 cm; Wt 63.0 kg
[~2024-12-21 06:57] MED LIST changes: +MULTTAB99 PO; +POM; -TAMS0.4C39 PO; +TEMA15CA2 PO; +TRAM50TA2 PO
[2024-12-21] MEDS: SODIUM ZIRCONIUM CYCL 10 GM PAK PO ONE ×2 (08:16)
[2024-12-21] MEDS ORDERED: IODIXANOL 320MG/ML 100ML BTL IV ONE (08:56)
[2024-12-21] MEDS ORDERED: ANGIOMAX 250 MG VIAL IV ONE (08:59)
[2024-12-21] MEDS ORDERED: fentaNYL CITRATE 100 MCG/2 ML VL ONE (08:59)
[2024-12-21] MEDS ORDERED: MIDAZOLAM HCL 2MG/2ML 2ml VIAL (1mg/ml) ONE (09:01)
[2024-12-21] MEDS ORDERED: SODIUM CHL 0.9% 50 ML ONE (09:01)
[2024-12-21] MEDS ORDERED: LIDOCAINE 2%HCL (LOCAL ANESTH.) INJ 20ML MDV ONE (09:01)
[2024-12-21] MEDS ORDERED: CLOPIDOGREL BISULFATE 75 MG TAB ONE (09:56)
--- NOTE | 2024-12-21 10:24 | DVHOP ---
DATE OF SURGERY: 12/21/2024 PROCEDURES PERFORMED: * Selective left and right coronary angiography, ventriculogram, right iliac angiography. * Right heart catheterization and swan catheterization, and conscious sedation. INDICATION: The patient with aortic valve stenosis, increasing chest pain and shortness of breath, end-stage renal disease, now most likely a candidate for TAVR. PROCEDURE: The patient was prepped and draped in sterile condition. A 1% Xylocaine was used to anesthetize the right groin. A Cook needle in the right femoral artery was engaged. Using the Seldinger technique, a 6-Malaysian sheath was placed in the right femoral artery. Using a 6-Malaysian JL4 catheter and a 6-Malaysian JR4 catheter, selective left and right coronary angiography was performed. Then, the 6-Malaysian diagnostic system was exchanged for a 6-Malaysian interventional system. Using a 6-Malaysian XP 3.5 guide catheter, the left main was cannulated using a Choice PT extra support wire. The obtuse marginal branch was then crossed. FFR was performed. Following that, it was found to be 0.74. Then, we proceeded with angioplasty. Thrombectomy was performed using a Shockwave catheter. Followed by stent placement of the 3.0 x 18 mm [place] stent was deployed at 16 atmospheres. There were no complications. The patient tolerated the procedure well. Then, similarly, right heart catheterization was performed. Right-sided pressures tracings and cardiac output were performed. There were no complications. The patient tolerated the procedure. The right femoral arteriotomy site was closed using the AngioSeal device. RESULTS: Left main patent, left anterior descending artery, mild intimal irregularity without any flow restrictive lesion. Circumflex in the proximal portion had an 80% stenosis. FFR of 0.74. Thrombectomy and Shockwave catheter was performed. This was followed by stent placement of a 3.0 x 18 mm Issac [place] stent with less than 10% residual stenosis. Right coronary artery, mild intimal irregularity in the midportion. There was about a 30% narrowing and FFR was performed. It was 0.89. Left ventricular function showed an ejection fraction of 55% with an LVEDP of 18-22 mmHg with a 34 mmHg gradient across the aortic valve. Right heart catheterization showed a RA pressure of 12, RV pressure of 52/12, PA pressure 58/18, and a capillary wedge pressure of 20. Cardiac output is calculated as 7.6 L/min with a cardiac index of 4.27 L/min/m?, calculated aortic valve area of 1.0 cm?. Thus, the patient has severe aortic valve stenosis, symptomatic dyspnea on exertion, and now that we have revascularized patient's coronary artery disease, I think the patient even though has moderate to severe aortic valve stenosis, the patient would benefit from aortic valve replacement. We will refer him for TAVR. We will continue to follow patient. Maurizio Madrid MD SA/CRUZITO TID: [id number] RECEIPT: [id number]
--- NOTE | 2024-12-22 06:46 | DVHDS ---
DATE OF DISCHARGE: 12/21/2024 DISCHARGE DIAGNOSES: * The patient with end-stage renal disease, on hemodialysis. * Status post angioplasty with stent placement of the circumflex artery. * The patient with a severe aortic valve stenosis, aortic valve area 1.0 cm2 with diastolic dysfunction, marked elevation in blood pressure as well. He is clinically stable at this time. He will undergo dialysis in the morning. His potassium level was 5.9. ____ of Lokelma was given to the patient. Repeat potassium level will be checked prior to discharge because the patient has another 24 hours prior to dialysis. We will continue to follow the patient. Stable at the time of discharge. DISPOSITION: Home. ACTIVITY: As instructed. The patient will be referred for TAVR procedure at [facility]. Maurizio Madrid MD SA/GILDARDO/AJITH TID: [id number] RECEIPT: [id number]
== END 2024-12-21 14:10 | disposition home or self-care (01) ==
LOC: CATH 06:57
PROVIDERS: ATTEND Internal Medicine Cardiovascular Disease
DX: I35.0 Nonrheumatic aortic (valve) stenosis (principal); I25.10 Atherosclerotic heart disease of native coronary artery without angina pectoris; I13.2 Hypertensive heart and chronic kidney disease with heart failure and with stage 5 chronic kidney disease, or end stage renal disease; I50.9 Heart failure, unspecified; N18.6 End stage renal disease; Z79.890 Hormone replacement therapy; Z79.899 Other long term (current) drug therapy; Z99.2 Dependence on renal dialysis; Z87.01 Personal history of pneumonia (recurrent); Z87.891 Personal history of nicotine dependence; Z83.3 Family history of diabetes mellitus; Z82.49 Family history of ischemic heart disease and other diseases of the circulatory system
CPT/HCPCS: 0523T; 36415; 80048; 85025; 85610; 85730; 92972; 92973; 93460; C1760; C1761; C1769; C1874; C1887; C1894; C9600; J0583; J1644; J2250; J3010; Q9967; 99152; 99153